=== PATIENT | female | born 1955 | race Caucasian/White ===

== ENCOUNTER 2017-05-28 09:27 | Day surgery (SDC) | payer OTHER ==
[2017-05-23 15:04] VITALS: BMI 33.9
[~2017-05-28 09:27] MED LIST: LACTATED RINGERS 1,000 ML IV SCH
[2017-05-28 09:46] VITALS: TEMP 96.7
[2017-05-28] MEDS ORDERED: LIDOCAINE 1% 20 ML VIAL (10MG/ML) FOR IV START INTRADERMA ONE (09:55)
[2017-05-28] MEDS ORDERED: PROPOFOL 10 MG/ML 20 ML VIAL IV ONE (09:59)
[2017-05-28] MEDS ORDERED: LIDOCAINE 1% INJ 10MG/ML (20 ML MDV) ONE (09:59)
--- NOTE | 2017-05-28 10:33 | P.OP ---
Date of Procedure: 05/28/17 Preoperative Diagnosis: Screening colonoscopy Newly diagnosed breast cancer Postoperative Diagnosis: Normal Procedure(s) Performed: Colonoscopy without biopsy Implants: NA Anesthesia: MAC Surgeon: Abby Melara Pathology: none sent Condition: stable Disposition: PACU Indications for Procedure: 62 years old female presents for screening colonoscopy. Informed consent obtained and patient did undergo colonoscopy with possible biopsy. Operative Findings: Diverticulosis Poor colon prep Description of Procedure: The patient was brought to the endoscopy suite and placed in lateral decubitus position. IV sedation was given as per anesthesia team. Patient was on continuous vitals and pulse oximetry monitoring throughout the procedure. A timeout was performed to verify correct patient and correct procedure. Perianal examination did not show any external hemorrhoids. Digital rectal examination was performed. No masses or gross blood. A well-lubricated Olympus colonoscope was passed per rectally and was gradually advanced beyond the sigmoid colon, splenic flexure, transverse colon, hepatic flexure and cecum. The ileocecal valve was visualized as well as the appendiceal orifice . The colonoscope was gradually withdrawn inspecting all the mucosal surfaces. Bowel prep was good. No polyps, masses, AV malformations noted. No diverticulosis The scope was gradually withdrawn and retroflexed in the rectum . Grade 1 internal hemorrhoids seen. Total withdrawal time was greater than 6 minutes . Patient tolerated the procedure well and was taken to post anesthesia care unit in stable condition. Recommend repeat colonoscopy in 10 years .
[2017-05-28 11:14] VITALS: BP 133/68; PULSE 66; RESP 18
== END 2017-05-28 11:36 | disposition home or self-care (01) ==
LOC: ORWHC2ENDO 09:27
PROVIDERS: ATTEND Surgery
DX: Z12.11 Encounter for screening for malignant neoplasm of colon (principal); C50.512 Malignant neoplasm of lower-outer quadrant of left female breast; K64.0 First degree hemorrhoids; Z78.0 Asymptomatic menopausal state; Z80.3 Family history of malignant neoplasm of breast; Z17.0 Estrogen receptor positive status [ER+]; Z79.1 Long term (current) use of non-steroidal anti-inflammatories (NSAID)
CPT/HCPCS: 45378

== ENCOUNTER → 2018-03-30 | Outpatient (CLI) | payer MEDICARE, OTHER ==
--- NOTE | 2018-04-03 16:14 | BMR ---
EXAMINATION TYPE: MR breast BILAT wo/w con DATE OF EXAM: 03/30/2018 COMPARISON: Bilateral breast screening mammogram May 02, 2017 BI-RADS 0. Left breast ultrasound Au 2016 BI-RADS 4. HISTORY: Left breast lateral side hard lump with extreme pain, markers put in 2017 in area of lump, l eft breast ca diagnosed on ultrasound-guided core biopsy May 10, 2017 with excisional surgery here July 05, 2017 with pathology invasive ductal carcinoma, focal ADH, and lobular neoplasia, and out side bilateral diagnostic mammogram February 28, 2018 BI-RADS 2 CONTRAST: Multiplanar, multisequence images of the breasts were acquired utilizing 9 mL intravenous Gadavist ga dolinium contrast. TECHNIQUE: A series of fat and water weighted images in the long and short axis views of both breasts are obtained in conjunction with dynamic contrast MRI with subtraction technique. Three-dimensional and additional postprocessing imaging is created on independent workstation and reviewed during offi cial interpretation of this study. FINDINGS: Scattered fibroglandular tissue is redemonstrated throughout both breasts. There is asymmet marylu diminished size to left breast with moderate skin thickening presumed posttreatment change. There is artifact from surgical clips in the lower inner quadrant at site of lumpectomy. There is diffuse edema and enhancement involving the anterior and lateral half of the left breast. A few benign appearing axillary lymph nodes are identified bilaterally. No suspicious axillary adenop athy is seen. No suspicious intramammary lymph nodes are present. No new pathologic enhancing masses are identified. Chest wall remains intact. No suspicious incidental findings outside the breasts. IMPRESSION: No MRI evidence for invasive malignancy in either breast. Findings lateral half of left b reast would favor posttreatment change and/or active inflammation/infection. Correlate clinically BI-RADS 1 negative study right breast. BI-RADS 2 presumed benign findings -- expected postsurgical and treatment changes left breast. Recommendation: Correlate clinically left breast. Consider diagnostic left breast mammogram follow-up August 30, 2018. Annual bilateral breast mammogram is due February 28, 2019.
== END | disposition home or self-care (01) ==
LOC: RADMRIMAIN 08:52
PROVIDERS: ATTEND Radiology Radiation Oncology
DX: C50.512 Malignant neoplasm of lower-outer quadrant of left female breast (principal)
CPT/HCPCS: 82565; 36415; 0159T; C8908; A9581; 77059

== ENCOUNTER → 2018-04-26 | Outpatient (CLI) | payer MEDICARE, OTHER ==
[2018-04-26 11:39] VITALS: BP 174/69; PULSE 77; BMI 34.4
--- NOTE | 2018-04-26 12:24 | P.GSHP ---
History of Present Illness H&P Date: 04/26/18 The patient is a 63-year-old white female who is status post left breast lumpectomy and sentinel node biopsy in June 2017 for a T1 N0 M0 breast cancer. She subsequently underwent radiation therapy. She was ER/MS positive and is presently on anastrazole. She complains of tenderness of the left breast at the lumpectomy site where it Biozorb was placed. She additionally complains of swelling of her left arm and wears an elastic compression sleeve. Family History: 1. 3 maternal aunts with breast cancer Past surgical history: 1. Tubal ligation 2. Left breast lumpectomy and sentinel node biopsy Past medical history: Negative Hormonal history: Menarche: 12 Pregnancies:4 4, children, first at 15, breast fed: no menopause: 55 BCP: 25 years hormones: none Review of systems: HEENT: Negative Lungs: Negative Heart: Negative GI: Negative : Negative Arthritis: Negative Neurologic: Negative Psychiatric: Negative ALLERGIES: Negative Social history: Smoke: Negative Alcohol: Negative Drugs: Negative - Constitutional Constitutional: Denies chills, Denies fever - EENT Eyes: bilateral as per HPI Ears: deny: decreased hearing, tinnitus Ears, nose, mouth and throat: Denies headache, Denies sore throat - Breasts Breasts: bilateral: as per HPI - Cardiovascular Cardiovascular: Denies chest pain, Denies shortness of breath - Respiratory Respiratory: Denies cough, Denies 7 - Gastrointestinal Gastrointestinal: Reports as per HPI - Genitourinary (Female) Genitourinary: Reports as per HPI - Musculoskeletal Musculoskeletal: Reports as per HPI - Integumentary Comment: Lymphedema left upper extremity Integumentary: Reports pruritus - Neurological Neurological: Reports as per HPI - Psychiatric Psychiatric: Denies anxiety, Denies depression - Endocrine Endocrine: Reports weight change, Denies fatigue - Hematologic/Lymphatic Comment: none - Allergic/Immunologic Allergic/Immunologic: Reports as per HPI Past Medical History Past Medical History: Cancer Additional Past Medical History / Comment(s): RECENT DX OF LT BREAST CANCER, RLS WITH LEG PAIN. History of Any Multi-Drug Resistant Organisms: None Reported Past Surgical History: Tubal Ligation Additional Past Surgical History / Comment(s): COLONOSCOPY Past Anesthesia/Blood Transfusion Reactions: No Reported Reaction Past Psychological History: No Psychological Hx Reported Smoking Status: Never smoker Past Alcohol Use History: None Reported Past Drug Use History: None Reported - Past Family History Mother Family Medical History: No Reported History Additional Family Medical History / Comment(s): 3 AUNTS WITH HX OF BREAST CANCER Medications and Allergies Home Medications Medication Instructions Recorded Confirmed Type Naproxen Sodium [Aleve] 220 mg PO BID PRN 05/23/17 04/26/18 History Docusate [Colace] 100 mg PO BID #30 capsule 06/25/17 04/26/18 Rx Hydrocodone/Acetaminophen [Cornucopia 1 each PO Q6HR PRN #30 tab 06/25/17 04/26/18 Rx 5-325] Allergies Allergy/AdvReac Type Severity Reaction Status Date / Time No Known Allergies Allergy Verified 06/25/17 07:25 Surgical - Exam Vital Signs Pulse BP Pulse Ox 77 174/69 99 04/26/18 11:34 04/26/18 11:34 04/26/18 11:34 - General well developed, well nourished, no distress - Eyes normal ocular movement, no icteric - ENT no hearing loss, no congestion - Neck no masses, trachea midline - Respiratory normal respiratory effort, clear to auscultation - Cardiovascular Rhythm: regular Heart Sounds: normal: S1, S2 - Abdomen Abdomen: soft, non tender, no guarding, no rigid, no rebound - Integumentary Patient with some pigmentation changes of the left breast related to radiation and lumpectomy - Neurologic no disoriented, no combative - Musculoskeletal normal gait, normal posture - Psychiatric oriented to time, oriented to person, oriented to place, speech is normal, memory intact Breast examination: Right breast: Multiple positional exam no dominant masses or nodules of concern Right axilla: No adenopathy of concern Left breast: Postoperative changes related to radiation as well as fullness related to Biozorb some thickening of the skin Left axilla: No adenopathy of concern Left upper extremity: Lymphedema present Results Bilateral breast MRI was performed on 03/30/2018. There was no evidence of malignancy in either breast just postoperative changes noted in the left breast. Assessment and Plan Assessment: Impression/plan: 1. Patient status post left breast lumpectomy sentinel node biopsy approximately one year ago with persistent pain in the area of the left breast 2. Lymphedema left upper extremity 3. Chronic pain left breast Plan: 1. We will get an ultrasound of the left breast where the firmness is located and see if this corresponds to the BioSorb depending on this may recommend removal of the Biozorb as she has chronic pain related to this 2. Physical therapy for lymphedema left upper extremity 3. Follow-up 1 week cc: Ruben Mueller nurse practitioner in [place], Dr. Clifford located in [place], Dr. Martinez Todd
== END ==
LOC: WWCWWP 11:31
PROVIDERS: ATTEND Surgery
DX: Z53.9 Procedure and treatment not carried out, unspecified reason (principal)

== ENCOUNTER → 2018-04-26 | Outpatient (CLI) | payer MEDICARE, OTHER ==
--- NOTE | 2018-04-26 15:51 | USB ---
EXAMINATION TYPE: US breast complete LT DATE OF EXAM: 04/26/2018 COMPARISON: NONE CLINICAL HISTORY: N64.4 BREAST PAIN, R92.8 ABNORMAL MAMMOGRAM. History of left breast cancer and rece nt radiation with left breast skin thickening and pain. FINDINGS: Whole left breast ultrasound was performed from the 1:00 to 12:00 positions including the r etroareolar region and axillary tail. There is a hypoechoic 3.6 x 2.9 x 3.0 cm fluid collection at th e 4:00 location in zone BC compatible with the patient's site of lumpectomy and likely postoperative seroma. This is avascular. There is diffuse skin thickening and edema throughout the entirety of the left breast, likely post ra diation change. At the 8:00 position in zone a there is a solid appearing mass measuring 1.3 x 0.6 x 1.0 cm it is hyp oechoic and avascular although increased through transmission is seen, possibly related to a complica bautista cysts. Ill-defined area at the 9:00 position in zone BC is predominantly hyperechoic and could re late to fat necrosis. Short-term follow-up is advised. At the 10:00 position within the left breast t here is a small 0.8 cm mass possibly containing a fatty hilum on image 69. This may represent an intr amammary lymph node. At the 1:00 position there is an elongated mass measuring 0.7 x 0.6 x 1.5 cm osbaldo p to the skin surface, possible fat necrosis or fluid collection. Short-term follow-up could be perfo rmed. IMPRESSION: BI-RADS 3-probably benign findings. Short-term follow-up left breast ultrasound is recomm ended in 3 months. Diffuse left breast edema is seen, likely postradiation mastitis. Additionally the re are multiple masses some of which may represent complicated cysts, others fat necrosis, and possib le intramammary lymph node. Reevaluation of the short-term basis is recommended.
== END | disposition home or self-care (01) ==
LOC: RADUSWWP 12:29
PROVIDERS: ATTEND Surgery
DX: R92.8 Other abnormal and inconclusive findings on diagnostic imaging of breast (principal); N64.4 Mastodynia

== ENCOUNTER → 2018-05-16 | Outpatient (CLI) | payer MEDICARE, OTHER ==
[2018-05-16 15:31] VITALS: BP 133/83; PULSE 84; RESP 18; TEMP 98; BMI 33.9
--- NOTE | 2018-05-16 15:48 | P.PN ---
Progress Note - Text Progress Note Date: 05/16/18 The patient is a 63-year-old white female who is status post left breast lumpectomy and sentinel node biopsy in June 2017 for T1 N0 M0 breast cancer. She subsequently underwent radiation therapy. She was ER/IN positive and is presently on anastrozole. She has persistent tenderness in the left breast at the lumpectomy site with it being described as a 10 out of 10. She states that she has difficulty sleeping at night secondary to the pain. The pain is not superficial in the skin of the breast but is deep within the breast itself. It does not appear to be related to the chest wall. The patient also developed lymphedema worsen elastic compression stocking this had physical therapy. She wishes to have the left breast removed and secondary to the fact that she her breasts are quite large is also desired the right breast to be removed such that she would be symmetric. Family history: 1. 3 maternal aunts with breast cancer Past surgical history: 1. Tubal ligation 2. Left breast lumpectomy sentinel node biopsy Past medical history: Negative Hormonal history: Menarche: 12 Pregnancies: 4, 4 children, first at 15, did not breast-feed Menopause: 55 control pills: 25 years Hormones: Negative Review of systems: HEENT: Negative Lungs: Negative Heart: Negative GI: Negative : Negative Arthritis: Negative Neurologic: Negative Social history: Smoke: Negative Alcohol: Negative Drugs: Negative Physical exam: Neck: No adenopathy of concern Lungs: Clear Heart: Regular rate and rhythm Abdomen: Soft nontender Breast examination: Right breast: Multiple positional exam no dominant masses or nodules of concern breast is very large a 42 double deep Right axilla: No adenopathy of concern Left breast: Postoperative changes as well as radiation changes, it is very tender near the area of the lumpectomy with erythema of the skin at this site as well Left axilla: Incision clean and dry no adenopathy of concern Ultrasound was performed which revealed probable benign finding short-term follow-up of the left breast in 3 months there was noted to be diffuse left breast edema likely postradiation mastitis additionally multiple masses some of which may represent complicated cyst other's fat necrosis and possible intramammary lymph node Impression/plan: 1. Patient status post left breast lumpectomy and sentinel node biopsy for a stage I breast cancer 2. Left breast pain related to radiation/lumpectomy 3. Patient presently on anastrozole 4. Right breast 42 double D Plan: 1. Will discuss with Dr. Todd the possibility of bilateral mastectomy as the patient just wishes both breasts be removed at this time secondary to the persistent chronic pain. 2. Continue anastrozole 3. I would recommend that the right breast be reduced or removed if the left breast is removed secondary to the large size of the breast and asymmetry that would be present CC: Dr. Darrin Neves in [facility], Dr. Ovi Todd
== END ==
LOC: WWCWWP 15:12
PROVIDERS: ATTEND Surgery
DX: Z53.9 Procedure and treatment not carried out, unspecified reason (principal)

== ENCOUNTER 2018-06-11 08:02 | Day surgery (SDC) | payer MEDICARE, OTHER ==
[2018-06-04 14:35] VITALS: BMI 33.6
[~2018-06-11 08:02] MED LIST changes: +DEXAMETHASONE SOD PHOSPHATE 10 MG/ML 1 ML VIAL IV ONE; +HEPARIN SODIUM,PORCINE 5,000 UNIT/ML 1 ML VIAL SQ ONE; -LACTATED RINGERS 1,000 ML IV SCH; +MIDAZOLAM 2 MG/2 ML VIAL IV PRN; +ONDANSETRON 4 MG/2 ML VIAL IVP ONE; +Pre Op ABX Message 1 EACH MISC MISCELLANE ONE; +fentaNYL (PF) 50 MCG/ML 2 ML AMP IV PRN
[2018-06-11] MEDS ORDERED: LIDOCAINE 1% 20 ML VIAL (10MG/ML) FOR IV START INTRADERMA ONE (09:10)
[2018-06-11] MEDS: LACTATED RINGERS 1,000 ML IV SCH (09:11)
[2018-06-11] MEDS ORDERED: PHENYLEPHRINE-0.9% NACL SYG 1 MG/10 ML SYRINGE ONE (10:12)
[2018-06-11] MEDS ORDERED: PROPOFOL 10 MG/ML 20 ML VIAL IV ONE (10:12)
[2018-06-11] MEDS ORDERED: HYDROmorphone (PF) 1 MG/ML ONE (10:12)
[2018-06-11] MEDS ORDERED: MIDAZOLAM 2 MG/2 ML VIAL ONE (10:12)
[2018-06-11] MEDS ORDERED: LIDOCAINE 1% INJ 10MG/ML (20 ML MDV) ONE (10:12)
[2018-06-11] MEDS ORDERED: fentaNYL (PF) 50 MCG/ML 2 ML AMP ONE (10:12)
[2018-06-11] MEDS ORDERED: SUCCINYLCHOLINE CHLORIDE 100 MG/5 ML SYR IV ONE (10:12)
[2018-06-11] MEDS ORDERED: SODIUM CHLORIDE 0.9% 50 ML with ceFAZolin 2,000 MG IV ONE ×2 (10:12)
[2018-06-11] MEDS ORDERED: LACTATED RINGERS 1,000 ML IV ONE (12:17)
[2018-06-11] MEDS ORDERED: BENZOCAINE/MENTHOL LOZENG 1 EACH LOZENGE MUCOUS MEM PRN (13:21)
[2018-06-11] MEDS ORDERED: HYDROcodone/APAP 5-325MG 1 EACH TAB PO PRN (13:21)
[2018-06-11] MEDS ORDERED: NALOXONE 0.4 MG/ML 1 ML VIAL IV PRN (13:21)
[2018-06-11] MEDS ORDERED: CALCIUM CARBONATE 500 MG CHEWABLE PO PRN (13:21)
[2018-06-11] MEDS ORDERED: ONDANSETRON 4 MG/2 ML VIAL IVP PRN (13:21)
--- NOTE | 2018-06-11 13:21 | P.OP ---
Date of Procedure: 06/11/18 Preoperative Diagnosis: Left breast prior lumpectomy and radiation therapy with mastodynia, ptotic large right breast Postoperative Diagnosis: Same Procedure(s) Performed: Bilateral simple mastectomy Anesthesia: JEREMIE Surgeon: Madeline Campos Estimated Blood Loss (ml): 75 IV fluids (ml): 1,100 Pathology: other (Both breast) Condition: stable Disposition: PACU Indications for Procedure: The patient is a 63-year-old white female who is status post lumpectomy and radiation therapy of the left breast. Postradiation she has had severe left breast pain. After discussion with radiation oncology the patient wishes to have a left breast mastectomy. The pain is present in the breast and not the chest wall. The radiation oncologist concurs that this is a reasonable treatment for the breast pain. The patient has large breast and she wishes a right mastectomy secondary to the large size of the breast and asymmetry that the mastectomy on the left would cause. She has been given the option of seeing a plastic surgeon and reconstruction or discussion of reduction and she just wishes the right breast to be removed. She understands the risks and benefits and wishes to proceed. The patient was taken to the operating room and following induction of anesthesia both breasts were prepped and draped in a sterile fashion. The left side was approached initially. Superior and inferior skin flaps were developed and carried down to the chest wall. Dissection was performed from medial to lateral taking the breast off the pectoralis major muscle. The tissue in the left breast was very dense and thick with thickening of the skin as well. The breast was completely removed and the wound was irrigated. In the wound site any small areas of oozing were cauterized and powder motorized Surgicel was placed. This was then packed and the right breast was approached. The left breast was marked with a suture at the superior aspect of the breast. Instruments and gloves and gown were changed prior to the approach to the right breast. Superior and inferior skin flaps were measured and developed. These were carried down to the chest wall. The breast was then taken from medial to lateral being careful to maintain hemostasis using the electrocautery device. The breast was marked using a suture at the superior aspect. After the breast had been removed the wound was well irrigated. After we were assured that hemostasis was attained a JOHANNY drain was placed. The JOHANNY drain was secured using a 3-0 nylon suture. The subcutaneous tissues were closed with 3- 0 Vicryl followed by closure of the skin with a 4-0 Monocryl. Steri-Strips were applied. Upon completion of this the left breast mastectomy site was again approached. The wound was again irrigated and no evidence of bleeding was identified. A JOHANNY drain was placed and secured with a nylon suture. The deep sutures were closed with 3-0 Vicryl suture followed by 4-0 Monocryl in the skin. Steri-Strips were applied. All instrument and sponge counts were correct at the end of the case. The patient tolerated the procedure in stable condition. Fluffs were placed and a Gregor wrap was placed as a dressing.
[2018-06-11] MEDS: HYDROmorphone 0.5 MG/0.5 ML SYRINGE IVP ONE ×4 (14:11→14:54)
[2018-06-11] MEDS ORDERED: MEPERIDINE 50 MG/ML SYRINGE IVP ONE (15:06)
[2018-06-11] MEDS: DEXTROSE 5%-0.45% NACL 1,000 ML IV SCH ×2 (16:12→20:55)
--- NOTE | 2018-06-11 16:50 | P.CONS ---
History of Present Illness - Reason for Consult Consult date: 06/11/18 Requesting physician: Madeline Campos - Chief Complaint bilateral breast simple mastectomy - History of Present Illness this is a pleasant 63-year-old female patient of Dr. Leland Jacome. She has underlying history of breast cancer status post lumpectomy left side with radiation therapy, she developed severe left breast pain left afterpost radiation treatmentand underwent bilateral simple mastectomy.she also has restless leg syndromeotherwise she is healthy.patient denies any history of [place] CHF COPD or prior history of DVT PE. Patient has mild lymphedema left arm, Abraham drain minimal left breast about half full on right breast Restless leg pain not yet contyrolled Review of Systems Constitutional: Reports as per HPI, Denies anorexia, Denies chills, Denies chronic headaches, Denies chronic pain, Denies daytime sleepiness, Denies fatigue, Denies fever, Denies lethargy, Denies malaise, Denies night sweats, Denies poor appetite, Denies sweats, Denies weakness, Denies weight gain, Denies weight loss Ears, nose, mouth and throat: Reports as per HPI, Denies ant. neck pain, Denies bleeding gums, Denies dental pain, Denies dysphagia, Denies epistaxis, Denies headache, Denies hoarseness, Denies mouth pain, Denies nasal congestion, Denies nasal discharge, Denies neck fullness/pressure, Denies neck lump, Denies nose pain, Denies odynophagia, Denies post-nasal drip, Denies sinus pain, Denies sinus pressure, Denies swelling in mouth, Denies swelling in throat, Denies sore throat, Denies vertigo, Denies voice changes Cardiovascular: Reports as per HPI, Denies chest pain, Denies claudication, Denies decreased exercise tolerance, Denies dyspnea on exertion, Denies edema, Denies high blood pressure, Denies irregular heart beat, Denies leg edema, Denies lightheadedness, Denies orthopnea, Denies palpitations, Denies paroxysmal nocturnal dyspnea, Denies phlebitis, Denies rapid heart beat, Denies shortness of breath, Denies syncope Respiratory: Reports as per HPI, Denies congestion, Denies cough, Denies cough with sputum, Denies dyspnea, Denies excessive sputum, Denies hemoptysis, Denies home oxygen, Denies pain, Denies pain on inspiration, Denies pleurisy, Denies respiratory infections, Denies sleep apnea, Denies snoring, Denies wheezing Gastrointestinal: Reports as per HPI, Denies abdominal pain, Denies belching, Denies bloating, Denies BRBPR, Denies change in bowel habits, Denies coffee ground emesis, Denies constipation, Denies diarrhea, Denies dyspepsia, Denies early satiety, Denies excessive gas, Denies heartburn, Denies hematemesis, Denies hematochezia, Denies indigestion, Denies jaundice, Denies lactose intolerance, Denies loss of appetite, Denies melena, Denies nausea, Denies vomiting Genitourinary: Reports as per HPI Menstruation: Reports as per HPI, Reports postmenopausal Musculoskeletal: Reports as per HPI, Denies arm numbness/tingling, Denies atrophy, Denies fractures, Denies frequent falls, Denies gait dysfunction, Denies hot joints, Denies leg numbness/tingling, Denies limitation of motion, Denies loss of height, Denies low back pain, Denies morning stiffness, Denies muscle cramps, Denies muscle weakness, Denies myalgias, Denies neck pain, Denies neck stiffness, Denies prior amputations, Denies redness of joints, Denies shooting arm pain, Denies shooting leg pain Integumentary: Reports as per HPI, Denies acne, Denies boils, Denies brittle nails, Denies change in hair/nails, Denies color changes, Denies darkening of skin, Denies depigmentation, Denies dryness, Denies foot/leg ulcers, Denies growths, Denies hirsutism, Denies lesions, Denies onychomycosis, Denies pruritus , Denies rash, Denies sores, Denies striae, Denies unusual bruising, Denies wounds Neurological: Reports as per HPI Psychiatric: Reports as per HPI Endocrine: Reports as per HPI Hematologic/Lymphatic: Reports as per HPI Allergic/Immunologic: Reports as per HPI Past Medical History Past Medical History: Cancer Additional Past Medical History / Comment(s): restless leg syndrome, left breast cancer-had 23 radiation tx-last Aug 2017 History of Any Multi-Drug Resistant Organisms: None Reported Past Surgical History: Breast Surgery, Tubal Ligation Additional Past Surgical History / Comment(s): left breast lumpectomy Past Anesthesia/Blood Transfusion Reactions: No Reported Reaction Past Psychological History: No Psychological Hx Reported Smoking Status: Never smoker Past Alcohol Use History: None Reported Past Drug Use History: None Reported - Past Family History Mother Family Medical History: No Reported History Additional Family Medical History / Comment(s): 3 AUNTS WITH HX OF BREAST CANCER Medications and Allergies Home Medications Medication Instructions Recorded Confirmed Type Anastrozole [Arimidex] 1 mg PO DAILY 06/04/18 06/11/18 History Cholecalciferol [Vitamin D3] 2,000 unit PO DAILY 06/04/18 06/11/18 History Docusate [Colace] 100 mg PO DAILY PRN 06/04/18 06/11/18 History Hydrocodone/Acetaminophen [[place] 1 each PO Q8HR PRN 06/04/18 06/11/18 History 5-325] rOPINIRole HCL [Requip] 0.25 mg PO HS 06/04/18 06/11/18 History Allergies Allergy/AdvReac Type Severity Reaction Status Date / Time No Known Allergies Allergy Verified 06/11/18 08:57 Physical Exam Vitals: Vital Signs Temp Pulse Resp BP Pulse Ox 06/11/18 15:15 90 14 135/65 97 06/11/18 15:00 90 18 141/74 96 06/11/18 14:45 91 16 180/79 95 06/11/18 14:30 92 16 179/78 95 06/11/18 14:15 96 16 169/70 96 06/11/18 14:00 86 16 171/72 98 06/11/18 13:43 97 F L 89 16 147/68 98 06/11/18 09:00 98.2 F 87 16 139/69 94 L Intake and Output 06/11/18 06/11/18 06/11/18 06:59 14:59 22:59 Intake Total 1500 Output Total 325 Balance 1175 Intake: IV 1500 Output: Urine 250 Estimated Blood Loss 75 - Constitutional General appearance: cooperative, no acute distress - EENT Eyes: anicteric sclerae, EOMI, PERRLA, dentition normal ENT: hard of hearing, NA/AT, normal oropharynx - Neck Neck: normal ROM - Respiratory Respiratory: bilateral: CTA, negative: diminished, dullness, rales - Cardiovascular Rhythm: regular Heart sounds: normal: S1, S2 Abnormal Heart Sounds: no systolic murmur, no diastolic murmur, no rub, no S3 Gallop, no S4 Gallop, no click, no other - Gastrointestinal General gastrointestinal: normal bowel sounds, soft - Integumentary surgical dressing intact,without any bleeding overlying dressing Integumentary: normal, normal turgor - Musculoskeletal Musculoskeletal: gait normal, strength equal bilaterally - Psychiatric Psychiatric: A&O x's 3, appropriate affect, intact judgment & insight Assessment and Plan Plan: 1. Mastodynia after breast radiation treatmentwith history of left breast cancer requiring bilateral simple mastectomyhim a postop day #0, patient is doing well without any significantpostoperativepain, no nausea no vomiting, patient would be using incentive spirometry is, a piece for pain control, patient can have gabapentin down the line shoed neuropathic pain persist despite simple mastectomy 2. Elevated blood pressure without any history of hypertension, monitorvitals , pain control, she would be given hydralazine 10 26 when necessary for systolic over 160 when necessary 3.. Restless leg syndrome, on ropiniole 0.25 mg at bedtime, check for iron studies. We will monitor this for titration issues 4.Vitamin D deficiency on vitamin D3 2000 units daily 5.DVT prophylaxis with BHANU hose and early ambulation 6. CK D stage I stablePatient can have anti-inflammatories should she require one for postoperative pain control Thank you Dr. Mdayson Gordon for allowing us to participate in the care of you patient. We'll going to follow her with you during this possibly course, recommendations to her treatment would be made based on clinical progress
[2018-06-11] MEDS: HEPARIN SODIUM,PORCINE 5,000 UNIT/ML 1 ML VIAL SQ SCH (17:31)
[2018-06-11] MEDS ORDERED: DOCUSATE 100 MG CAP PO PRN (18:47)
[2018-06-11] MEDS: HYDROmorphone 1 MG/ML 1 ML SYRINGE IVP PRN (20:36)
[2018-06-12] MEDS: HEPARIN SODIUM,PORCINE 5,000 UNIT/ML 1 ML VIAL SQ SCH ×3 (00:12→17:43)
[2018-06-12] MEDS: HYDROmorphone 1 MG/ML 1 ML SYRINGE IVP PRN ×2 (00:39→05:25)
[2018-06-12] MEDS: DEXTROSE 5%-0.45% NACL 1,000 ML IV SCH ×2 (05:26→19:15)
[2018-06-12 06:08] LABS: Anion Gap 11 mmol/L; Blood Urea Nitrogen 15 mg/dL (7-17); Calcium 9.6 mg/dL (8.4-10.2); Carbon Dioxide 24 mmol/L (22-30); Chloride 106 mmol/L (98-107); Glucose 139 mg/dL (74-99); Potassium 4.4 mmol/L (3.5-5.1); Sodium 141 mmol/L (137-145)
[2018-06-12 06:25] LABS: Basophils % (A) 0 %; Eosinophils % (A) 0 %; HCT 39.5 % (34.0-46.0); HGB 13.1 gm/dL (11.4-16.0); Lymphocytes # (A) 1.5 k/uL (1.0-4.8); Lymphocytes % (A) 12 %; MCH 32.1 pg (25.0-35.0); MCHC 33.2 g/dL (31.0-37.0); MCV 96.7 fL (80.0-100.0); Mean Platelet Volume 6.9; Monocytes # (A) 0.7 k/uL (0-1.0); Monocytes % (A) 6 %; Neutrophils # (A) 10.2 k/uL (1.3-7.7); Neutrophils % (A) 81 %; Platelet Count 274 k/uL (150-450); RBC 4.09 m/uL (3.80-5.40); RDW 12.9 % (11.5-15.5); WBC 12.6 k/uL (3.8-10.6)
[2018-06-12] MEDS: LACTATED RINGERS 1,000 ML IV SCH (07:12)
[2018-06-12] MEDS: CHOLECALCIFEROL 1,000 UNIT TAB PO SCH (09:01)
[2018-06-12] MEDS: PANTOPRAZOLE 40 MG/10 ML VIAL IV SCH (09:02)
[2018-06-12] MEDS: ANASTROZOLE 1 MG TAB PO SCH (09:02)
--- NOTE | 2018-06-12 09:48 | P.PN ---
Subjective Progress Note Date: 06/12/18 Principal diagnosis: Status post bilateral mastectomies postop day #1 Patient is postop day #1 bilateral mastectomy. At this time she is not tolerating her diet well and has had some nausea. Additionally she has some persistent chest wall discomfort requiring IV pain medication. Objective - Vital Signs Vital signs: Vital Signs Temp 97.4 F L 06/12/18 07:18 Pulse 83 06/12/18 07:18 Resp 16 06/12/18 07:18 BP 111/57 06/12/18 07:18 Pulse Ox 93 L 06/12/18 07:18 Intake & Output 06/11/18 06/12/18 06/12/18 18:59 06:59 18:59 Intake Total 1500 Output Total 325 588 Balance 1175 -588 Intake: IV 1500 Output: Drainage 238 left 33 right 205 Urine 250 250 Emesis 100 Estimated Blood Loss 75 Other: # Voids 1 - Constitutional General appearance: Present: obese - EENT Eyes: Present: EOMI ENT: Present: hearing grossly normal - Neck Neck: Present: normal ROM - Respiratory Respiratory: bilateral: CTA (Mildly decreased breath sounds at the bases bilaterally) - Cardiovascular Rhythm: regular Heart sounds: normal: S1, S2 - Gastrointestinal General gastrointestinal: Present: normal bowel sounds, soft - Integumentary Integumentary Comment(s): Patient's Gregor wrap was removed and incisions were inspected Incisions clean and dry bilaterally JOHANNY drain right serosanguineous fluid Left JOHANNY serous fluid Integumentary: Present: normal turgor - Psychiatric Psychiatric: Present: A&O x's 3, appropriate affect, intact judgment & insight - Labs CBC & Chem 7: 06/12/18 05:23 06/12/18 05:23 Labs: Abnormal Lab Results - Last 24 Hours (Table) 06/12/18 06/12/18 Range/Units 05:23 05:23 WBC 12.6 H (3.8-10.6) k/uL Neutrophils # 10.2 H (1.3-7.7) k/uL Glucose 139 H (74-99) mg/dL Assessment and Plan Assessment: Impression/plan: 1. Patient is postop day #1 bilateral mastectomy 2. Serosanguineous drainage right JOHANNY, sanguinous drainage left JOHANNY 3. Postoperative nausea Plan: 1. Repeat CBC in a.m. 2. Continue pain management 3. Advance diet as tolerated 4. Continue JOHANNY management
[2018-06-12 11:50] LABS: Iron Saturation 15.71 (12.00-45.00)
--- NOTE | 2018-06-12 13:11 | P.PN ---
Subjective Progress Note Date: 06/12/18 this is a pleasant 63-year-old female patient of Dr. Leland Jacome. She has underlying history of breast cancer status post lumpectomy left side with radiation therapy, she developed severe left breast pain left afterpost radiation treatmentand underwent bilateral simple mastectomy.she also has restless leg syndromeotherwise she is healthy.patient denies any history of [place] CHF COPD or prior history of DVT PE. Patient has mild lymphedema left arm, Abraham drain minimal left breast about half full on right breast Restless leg pain not yet contyrolled 06/12: Patient states that she had some nausea last evening. She was able to eat 2 pieces of pineapple this morning and half a cup of tea but otherwise has no appetite. She states she was a little dizzy with ambulation. Drains remain in place. Dr. De La Vega progress change dressings. Regarding her restless legs syndrome, patient states it was much improved from last evening with increased dose of Requip. Patient to be monitored overnight and possible discharge tomorrow. Objective - Vital Signs Vital signs: Vital Signs Temp 97.4 F L 06/12/18 07:18 Pulse 83 06/12/18 07:18 Resp 16 06/12/18 07:18 BP 111/57 06/12/18 07:18 Pulse Ox 93 L 06/12/18 07:18 Intake & Output 06/11/18 06/12/18 06/12/18 18:59 06:59 18:59 Intake Total 1500 Output Total 325 588 45 Balance 1175 -588 -45 Intake: IV 1500 Output: Drainage 238 45 left 33 15 right 205 30 Urine 250 250 Emesis 100 Estimated Blood Loss 75 Other: # Voids 1 - Exam General appearance: cooperative, no acute distress - EENT Eyes: anicteric sclerae, EOMI, PERRLA, dentition normal ENT: hard of hearing, NA/AT, normal oropharynx - Neck Neck: normal ROM - Respiratory Respiratory: bilateral: CTA, negative: diminished, dullness, rales - Cardiovascular Rhythm: regular Heart sounds: normal: S1, S2 Abnormal Heart Sounds: no systolic murmur, no diastolic murmur, no rub, no S3 Gallop, no S4 Gallop, no click, no other - Gastrointestinal General gastrointestinal: normal bowel sounds, soft - Integumentary surgical dressing intact,without any bleeding overlying dressing Integumentary: normal, normal turgor - Musculoskeletal Musculoskeletal: gait normal, strength equal bilaterally - Psychiatric Psychiatric: A&O x's 3, appropriate affect, intact judgment & insight - Labs CBC & Chem 7: 06/12/18 05:23 06/12/18 05:23 Labs: Abnormal Lab Results - Last 24 Hours (Table) 06/12/18 06/12/18 Range/Units 05:23 05:23 WBC 12.6 H (3.8-10.6) k/uL Neutrophils # 10.2 H (1.3-7.7) k/uL Glucose 139 H (74-99) mg/dL Assessment and Plan Plan: 1. Mastodynia after breast radiation treatment with history of left breast cancer requiring bilateral simple mastectomy, patient is doing well without any significant postoperative pain, nausea, continue incentive spirometry, current pain control pain control. A shunt may benefit from gabapentin down the line should neuropathic pain persist despite simple mastectomy. 2. Elevated blood pressure without any history of hypertension, monitor vitals , pain control. 3. Restless leg syndrome, on ropiniole 0.25 mg at bedtime and dose increased to 0.5 mg with improvement of symptoms. 4. Vitamin D deficiency on vitamin D3 2000 units daily 5. DVT prophylaxis with BHANU hose and early ambulation 6. CKD stage I stable. Patient can have anti-inflammatories should she require one for postoperative pain control Discharge plan: Return home most likely on Impression and plan of care have been directed as dictated by the signing physician. Idania Goncalves nurse practitioner acting as scribe for signing physician.
[2018-06-12] MEDS: HYDROcodone/APAP 5-325MG 1 EACH TAB PO PRN ×2 (14:19→19:47)
[2018-06-13] MEDS: HEPARIN SODIUM,PORCINE 5,000 UNIT/ML 1 ML VIAL SQ SCH ×4 (00:09→23:57)
[2018-06-13] MEDS: HYDROcodone/APAP 5-325MG 1 EACH TAB PO PRN ×3 (02:06→15:08)
[2018-06-13 06:53] LABS: Basophils % (A) 0 %; Eosinophils # (A) 0.2 k/uL (0-0.7); Eosinophils % (A) 2 %; HCT 35.2 % (34.0-46.0); HGB 11.6 gm/dL (11.4-16.0); Lymphocytes # (A) 2.6 k/uL (1.0-4.8); Lymphocytes % (A) 30 %; MCH 32.1 pg (25.0-35.0); MCV 97.3 fL (80.0-100.0); Mean Platelet Volume 6.8; Monocytes # (A) 0.5 k/uL (0-1.0); Monocytes % (A) 6 %; Neutrophils # (A) 5.3 k/uL (1.3-7.7); Neutrophils % (A) 61 %; Platelet Count 240 k/uL (150-450); RBC 3.62 m/uL (3.80-5.40); RDW 13.2 % (11.5-15.5); WBC 8.7 k/uL (3.8-10.6)
[2018-06-13] MEDS: PANTOPRAZOLE 40 MG/10 ML VIAL IV SCH (08:14)
[2018-06-13] MEDS: CHOLECALCIFEROL 1,000 UNIT TAB PO SCH (08:14)
[2018-06-13] MEDS: ANASTROZOLE 1 MG TAB PO SCH (08:53)
--- NOTE | 2018-06-13 08:55 | P.PN ---
Subjective Progress Note Date: 06/13/18 Principal diagnosis: Status post bilateral mastectomies postop day #2 Patient is postop day #2 bilateral mastectomy. At this time she is tolerating her diet well and has had resolution of her nausea. The postoperative discomfort has improved. Her pain is being controlled with oral pain medication. The drainage from the left JOHANNY is serous, and that from the right JOHANNY remains somewhat serosanguineous. Her hemoglobin is 11.6 down from 13.1. Her white count is 8.7. At this time the patient has no complaints. Objective - Vital Signs Vital signs: Vital Signs Temp 98.0 F 06/13/18 08:36 Pulse 80 06/13/18 08:36 Resp 16 06/13/18 08:36 BP 102/64 06/13/18 08:36 Pulse Ox 95 06/13/18 08:36 Intake & Output 06/12/18 06/13/18 06/13/18 18:59 06:59 18:59 Intake Total 100 Output Total 88 100 Balance 12 -100 Intake: Oral 100 Output: Drainage 88 100 left 30 50 right 58 50 Other: # Voids 1 1 - Constitutional General appearance: Present: obese - EENT Eyes: Present: EOMI - Neck Neck: Present: normal ROM - Respiratory Respiratory: bilateral: CTA - Cardiovascular Rhythm: regular Heart sounds: normal: S1, S2 - Integumentary Integumentary Comment(s): Gregor Ning is taken down and the incisions are evaluated Both incisions are clean and dry JOHANNY right serosanguineous the fluid is darker red today and more serous, that on the left is serous - Psychiatric Psychiatric: Present: A&O x's 3, appropriate affect, intact judgment & insight - Labs CBC & Chem 7: 06/13/18 06:34 06/12/18 05:23 Labs: Abnormal Lab Results - Last 24 Hours (Table) 06/12/18 06/13/18 Range/Units 05:23 06:34 RBC 3.62 L (3.80-5.40) m/uL Iron 44 L (50-170) ug/dL Assessment and Plan Assessment: Impression/plan: 1. Patient is postop day #2 bilateral mastectomy 2. Serous drainage left JOHANNY, serosanguinous drainage right JOHANNY 3. Postoperative nausea resolved Plan: 1. Continue to follow JOHANNY output most likely discharge home later today 2. Continue pain management 3. Advance diet as tolerated 4. Continue JOHANNY management
[2018-06-13] MEDS: LACTATED RINGERS 1,000 ML IV SCH (09:29)
[2018-06-13] MEDS: HYDROmorphone 1 MG/ML 1 ML SYRINGE IVP PRN ×2 (12:04→19:07)
--- NOTE | 2018-06-13 13:26 | P.PN ---
Subjective Progress Note Date: 06/13/18 this is a pleasant 63-year-old female patient of Dr. Leland Jacome. She has underlying history of breast cancer status post lumpectomy left side with radiation therapy, she developed severe left breast pain left afterpost radiation treatmentand underwent bilateral simple mastectomy.she also has restless leg syndromeotherwise she is healthy.patient denies any history of [place] CHF COPD or prior history of DVT PE. Patient has mild lymphedema left arm, Abraham drain minimal left breast about half full on right breast Restless leg pain not yet contyrolled 06/12: Patient states that she had some nausea last evening. She was able to eat 2 pieces of pineapple this morning and half a cup of tea but otherwise has no appetite. She states she was a little dizzy with ambulation. Drains remain in place. Dr. De La Vega progress change dressings. Regarding her restless legs syndrome, patient states it was much improved from last evening with increased dose of Requip. Patient to be monitored overnight and possible discharge tomorrow. 06/13: Patient states that she is feeling better today. Drains are left in place with patient have these removed in office. She states her pain is manageable. Patient is a possible discharge later today. Prescription will be sent for new dose of Requip and patient instructed to take iron for 1 month. Objective - Vital Signs Vital signs: Vital Signs Temp 98.0 F 06/13/18 08:36 Pulse 80 06/13/18 08:36 Resp 16 06/13/18 08:36 BP 102/64 06/13/18 08:36 Pulse Ox 95 06/13/18 08:36 Intake & Output 06/12/18 06/13/18 06/13/18 18:59 06:59 18:59 Intake Total 100 Output Total 88 100 20 Balance 12 -100 -20 Intake: Oral 100 Output: Drainage 88 100 20 left 30 50 right 58 50 20 Other: Voiding Method Toilet # Voids 1 1 1 - Exam General appearance: cooperative, no acute distress - EENT Eyes: anicteric sclerae, EOMI, PERRLA, dentition normal ENT: hard of hearing, NA/AT, normal oropharynx - Neck Neck: normal ROM - Respiratory Respiratory: bilateral: CTA, negative: diminished, dullness, rales - Cardiovascular Rhythm: regular Heart sounds: normal: S1, S2 Abnormal Heart Sounds: no systolic murmur, no diastolic murmur, no rub, no S3 Gallop, no S4 Gallop, no click, no other - Gastrointestinal General gastrointestinal: normal bowel sounds, soft - Integumentary surgical dressing intact,without any bleeding overlying dressing Integumentary: normal, normal turgor - Musculoskeletal Musculoskeletal: gait normal, strength equal bilaterally - Psychiatric Psychiatric: A&O x's 3, appropriate affect, intact judgment & insight - Labs CBC & Chem 7: 06/13/18 06:34 06/12/18 05:23 Labs: Abnormal Lab Results - Last 24 Hours (Table) 06/12/18 06/13/18 Range/Units 05:23 06:34 RBC 3.62 L (3.80-5.40) m/uL Iron 44 L (50-170) ug/dL Assessment and Plan Plan: 1. Mastodynia after breast radiation treatment with history of left breast cancer requiring bilateral simple mastectomy, patient is doing well without any significant postoperative pain, nausea, continue incentive spirometry, current pain control pain control. Patient may benefit from gabapentin down the line should neuropathic pain persist despite simple mastectomy. 2. Elevated blood pressure without any history of hypertension, monitor vitals , pain control. 3. Restless leg syndrome, on ropiniole 0.25 mg at bedtime and dose increased to 0.5 mg with improvement of symptoms. 4. Vitamin D deficiency on vitamin D3 2000 units daily 5. DVT prophylaxis with BHANU hose and early ambulation 6. CKD stage I stable. Patient can have anti-inflammatories should she require one for postoperative pain control Discharge plan: Return home Impression and plan of care have been directed as dictated by the signing physician. Idania Goncalves nurse practitioner acting as scribe for signing physician.
[2018-06-13 22:03] VITALS: RESP 16
[2018-06-14] MEDS: HYDROcodone/APAP 5-325MG 1 EACH TAB PO PRN ×2 (02:25→11:41)
[2018-06-14] MEDS: DEXTROSE 5%-0.45% NACL 1,000 ML IV SCH ×2 (02:30→11:06)
[2018-06-14] MEDS: LACTATED RINGERS 1,000 ML IV SCH (03:56)
[2018-06-14] MEDS ORDERED: PANTOPRAZOLE 40 MG TABLET PO SCH (07:30)
[2018-06-14 08:31] VITALS: BP 107/65; PULSE 80; TEMP 98
[2018-06-14] MEDS: ANASTROZOLE 1 MG TAB PO SCH (08:51)
[2018-06-14] MEDS: HEPARIN SODIUM,PORCINE 5,000 UNIT/ML 1 ML VIAL SQ SCH (08:51)
[2018-06-14] MEDS: CHOLECALCIFEROL 1,000 UNIT TAB PO SCH (08:51)
--- NOTE | 2018-06-14 10:11 | P.PN ---
Subjective Progress Note Date: 06/14/18 Principal diagnosis: Status post bilateral mastectomies postop day #3 Patient is postop day #3 bilateral mastectomy. At this time she is tolerating her diet well and has had resolution of her nausea. The postoperative discomfort has improved. Her pain is being controlled with oral pain medication. The drainage from the left JHOANNY is serous, and that from the right JOHANNY remains somewhat serosanguineous but is becoming more serous. CBC is pending. At this time the patient has no complaints. Objective - Vital Signs Vital signs: Vital Signs Temp 98 F 06/14/18 08:05 Pulse 80 06/14/18 08:05 Resp 16 06/14/18 08:05 BP 107/65 06/14/18 08:05 Pulse Ox 95 06/14/18 08:05 Intake & Output 06/13/18 06/14/18 06/14/18 18:59 06:59 18:59 Intake Total 480 Output Total 70 88 Balance 410 -88 Intake: Oral 480 Output: Drainage 70 88 left 30 38 right 40 50 Other: Voiding Method Toilet Toilet # Voids 1 1 - Constitutional General appearance: Present: obese - EENT Eyes: Present: EOMI - Neck Neck: Present: normal ROM - Respiratory Respiratory: bilateral: CTA - Cardiovascular Rhythm: regular Heart sounds: normal: S1, S2 - Integumentary Integumentary Comment(s): Dressings clean and dry Left incision clean and dry Right chest wall incision mild ecchymosis no evidence of infection - Psychiatric Psychiatric: Present: A&O x's 3, appropriate affect, intact judgment & insight - Labs CBC & Chem 7: 06/13/18 06:34 06/12/18 05:23 Assessment and Plan Assessment: Impression/plan: 1. Patient is postop day #3 bilateral mastectomy 2. Serous drainage left JOHANNY, serosanguinous drainage right JOHANNY becomming more serous 3. Postoperative nausea resolved Plan: 1. Continue to follow JOHANNY output most likely discharge home later today/ awiat CBC 2. Continue pain management 3. Continue JOHANNY management
[2018-06-14 10:27] LABS: Basophils % (A) 0 %; Eosinophils # (A) 0.3 k/uL (0-0.7); Eosinophils % (A) 3 %; HGB 12.4 gm/dL (11.4-16.0); Lymphocytes # (A) 2.7 k/uL (1.0-4.8); Lymphocytes % (A) 33 %; MCHC 31.8 g/dL (31.0-37.0); MCV 100.5 fL (80.0-100.0); Mean Platelet Volume 6.6; Monocytes # (A) 0.6 k/uL (0-1.0); Monocytes % (A) 7 %; Neutrophils # (A) 4.5 k/uL (1.3-7.7); Neutrophils % (A) 55 %; Platelet Count 234 k/uL (150-450); RBC 3.88 m/uL (3.80-5.40); WBC 8.3 k/uL (3.8-10.6)
--- NOTE | 2018-06-14 11:34 | P.DS ---
Providers Attending physician: Madeline Campos Consults: 06/11/18 13:25 Consult Physician Routine Consulting Provider: Abigail Will Consult Reason/Comments: medical managment Do you want consulting provider notified?: Yes Primary care physician: [facility] Course: The patient is a 63-year-old white female who is status post bilateral mastectomy postop day #3. The patient had previously undergone a left breast lumpectomy and had chronic pain at the area. Secondary to asymmetry which would result from a left mastectomy only she opted for bilateral mastectomy. Postoperative she had some initial nausea which has resolved. The patient is stable at this time is going to be discharged home. Plan - Discharge Summary Discharge Rx Participant: No New Discharge Prescriptions: New rOPINIRole HCL 0.5 mg PO HS #30 tablet Ferrous Sulfate [Feosol] 325 mg PO DAILY #30 tab Continue Cholecalciferol [Vitamin D3] 2,000 unit PO DAILY Anastrozole [Arimidex] 1 mg PO DAILY Hydrocodone/Acetaminophen [[place] 5-325] 1 each PO Q8HR PRN PRN Reason: Pain Docusate [Colace] 100 mg PO DAILY PRN PRN Reason: Constipation Discontinued rOPINIRole HCL [Requip] 0.25 mg PO HS Discharge Medication List Anastrozole [Arimidex] 1 mg PO DAILY 06/04/18 [History] Cholecalciferol [Vitamin D3] 2,000 unit PO DAILY 06/04/18 [History] Docusate [Colace] 100 mg PO DAILY PRN 06/04/18 [History] Hydrocodone/Acetaminophen [[place] 5-325] 1 each PO Q8HR PRN 06/04/18 [History] Ferrous Sulfate [Feosol] 325 mg PO DAILY #30 tab 06/13/18 [Rx] rOPINIRole HCL 0.5 mg PO HS #30 tablet 06/13/18 [Rx] Follow up Appointment(s)/Referral(s): Leland Jacome MD [Primary Care Provider] - 1 Week Madeline Campos MD [STAFF PHYSICIAN] - 06/21/18 12:40 pm Patient Instructions/Handouts: Patrice-Joseph Drain Care (GEN), Mastectomy (DC) Activity/Diet/Wound Care/Special Instructions: [place] 5/325. Take one or two tablets every 4 to 6 hours as needed for pain. Empty your Patrice Joseph drains at least 3 times a day and record the amount on the sheet provided and bring to your follow up appointment. Good handwashing. Diet as tolerated, drink plenty of fluids. No lifting, no driving. Discharge Disposition: HOME SELF-CARE
--- NOTE | 2018-06-14 12:40 | P.PN ---
Subjective Progress Note Date: 06/14/18 this is a pleasant 63-year-old female patient of Dr. Leland Jacome. She has underlying history of breast cancer status post lumpectomy left side with radiation therapy, she developed severe left breast pain left afterpost radiation treatmentand underwent bilateral simple mastectomy.she also has restless leg syndromeotherwise she is healthy.patient denies any history of MD CHF COPD or prior history of DVT PE. Patient has mild lymphedema left arm, Abraham drain minimal left breast about half full on right breast Restless leg pain not yet contyrolled 06/12: Patient states that she had some nausea last evening. She was able to eat 2 pieces of pineapple this morning and half a cup of tea but otherwise has no appetite. She states she was a little dizzy with ambulation. Drains remain in place. Dr. De La Vega progress change dressings. Regarding her restless legs syndrome, patient states it was much improved from last evening with increased dose of Requip. Patient to be monitored overnight and possible discharge tomorrow. 06/13: Patient states that she is feeling better today. Drains are left in place with patient have these removed in office. She states her pain is manageable. Patient is a possible discharge later today. Prescription will be sent for new dose of Requip and patient instructed to take iron for 1 month. 06/14: Patient states that she is feeling much better from yesterday. Her white count is normal at 8.3, hemoglobin stable at 12.4. Pulse ox running between 95 and 96% on room air. Patient is scheduled for discharge home today in stable condition. Objective - Vital Signs Vital signs: Vital Signs Temp 98 F 06/14/18 08:05 Pulse 80 06/14/18 08:05 Resp 16 06/14/18 08:05 BP 107/65 06/14/18 08:05 Pulse Ox 95 06/14/18 08:05 Intake & Output 06/13/18 06/14/18 06/14/18 18:59 06:59 18:59 Intake Total 480 Output Total 70 88 Balance 410 -88 Intake: Oral 480 Output: Drainage 70 88 left 30 38 right 40 50 Other: Voiding Method Toilet Toilet Toilet # Voids 1 1 1 - Exam General appearance: cooperative, no acute distress - EENT Eyes: anicteric sclerae, EOMI, PERRLA, dentition normal ENT: hard of hearing, NA/AT, normal oropharynx - Neck Neck: normal ROM - Respiratory Respiratory: bilateral: CTA, negative: diminished, dullness, rales - Cardiovascular Rhythm: regular Heart sounds: normal: S1, S2 Abnormal Heart Sounds: no systolic murmur, no diastolic murmur, no rub, no S3 Gallop, no S4 Gallop, no click, no other - Gastrointestinal General gastrointestinal: normal bowel sounds, soft - Integumentary surgical dressing intact,without any bleeding overlying dressing Integumentary: normal, normal turgor - Musculoskeletal Musculoskeletal: gait normal, strength equal bilaterally - Psychiatric Psychiatric: A&O x's 3, appropriate affect, intact judgment & insight - Labs CBC & Chem 7: 06/14/18 09:43 06/12/18 05:23 Labs: Abnormal Lab Results - Last 24 Hours (Table) 06/14/18 Range/Units 09:43 MCV 100.5 H (80.0-100.0) fL Assessment and Plan Plan: 1. Mastodynia after breast radiation treatment with history of left breast cancer requiring bilateral simple mastectomy, patient is doing well without any significant postoperative pain, nausea, continue incentive spirometry, current pain control pain control. Patient may benefit from gabapentin down the line should neuropathic pain persist despite simple mastectomy. 2. Elevated blood pressure without any history of hypertension, monitor vitals , pain control. 3. Restless leg syndrome, on ropiniole 0.25 mg at bedtime and dose increased to 0.5 mg with improvement of symptoms. 4. Vitamin D deficiency on vitamin D3 2000 units daily 5. DVT prophylaxis with BHANU hose and early ambulation 6. CKD stage I stable. Patient can have anti-inflammatories should she require one for postoperative pain control Discharge plan: Return home Impression and plan of care have been directed as dictated by the signing physician. Idania Goncalves nurse practitioner acting as scribe for signing physician.
== END 2018-06-14 12:10 | disposition home or self-care (01) ==
LOC: OR 08:02 → 6PED 13:44 → OR 06-14 12:10
PROVIDERS: ATTEND Surgery
DX: N60.12 Diffuse cystic mastopathy of left breast (principal); N60.11 Diffuse cystic mastopathy of right breast; N64.1 Fat necrosis of breast; N60.41 Mammary duct ectasia of right breast; R92.1 Mammographic calcification found on diagnostic imaging of breast; N64.81 Ptosis of breast; G89.29 Other chronic pain; R11.0 Nausea; R03.0 Elevated blood-pressure reading, without diagnosis of hypertension; G25.81 Restless legs syndrome; E55.9 Vitamin D deficiency, unspecified; N18.1 Chronic kidney disease, stage 1; Z85.3 Personal history of malignant neoplasm of breast; Z92.3 Personal history of irradiation; Z80.3 Family history of malignant neoplasm of breast; Z79.891 Long term (current) use of opiate analgesic; Z79.899 Other long term (current) drug therapy; Z78.0 Asymptomatic menopausal state; Z98.51 Tubal ligation status
CPT/HCPCS: 80048; 83540; 83550; 85025 ×2; 88307; 19303; J1644 ×3; J1100; J2175; J2405; S0170 ×2; J1170 ×3; J0690; C9113

== ENCOUNTER → 2018-06-21 | Outpatient (CLI) | payer MEDICARE, OTHER ==
--- NOTE | 2018-06-21 13:08 | P.PN ---
Progress Note - Text Progress Note Date: 06/21/18 [place] [id number]. At this time patient comes in without complaints. Her JOHANNY output is serous bilaterally that is greater on each side then 20 mL a day for the past 2 days. the pain for which we did the surgery has improved. Pathology did not reveal any recurrent cancer and no cancer in the right side. Physical exam: The patient's lauren wrap was removed incisions are clean and dry. No evidence of hematoma. No evidence of infection. JOHANNY drains bilateral serous drainage Lungs: Clear Heart: Regular rate and rhythm Impression: 1. patient doing well status post bilateral mastectomy Plan: 1. follow up next week 2. continue drain care cc: Nicolette
[2018-06-21 13:12] VITALS: BP 135/84; PULSE 85; RESP 16; TEMP 97.6; BMI 32.3
== END | disposition home or self-care (01) ==
LOC: WWCWWP 12:40
PROVIDERS: ATTEND Surgery
DX: Z53.9 Procedure and treatment not carried out, unspecified reason (principal)

== ENCOUNTER → 2018-06-24 | Outpatient (CLI) | payer MEDICARE, OTHER ==
[2018-06-24 16:32] VITALS: BP 129/66; PULSE 77; RESP 16; TEMP 98; BMI 32.1
--- NOTE | 2018-06-24 16:53 | P.PN ---
Progress Note - Text Progress Note Date: 06/24/18 Patient is a 63-year-old white female who is status post bilateral mastectomy. Patient at this time is doing well. She has bilateral JOHANNY drains in with minimal output and output is serous. The patient underwent the bilateral mastectomy secondary to severe pain in the left breast following lumpectomy and radiation therapy. Pathology revealed fat necrosis no residual cancer. The patient states she is glad that she had the breast removed and that the pain that she had in the breast is now much improved. Physical examination: Incision bilateral clean and dry no evidence of hematoma or seroma Impression: 1. Left breast lumpectomy/radiation therapy with chronic pain 2. Status post bilateral mastectomy as patient desired this secondary to the asymmetry she would have with a left breast mastectomy Plan: 1. Bilateral drains removed 2. Follow-up medical oncology 3. Follow-up radiation oncology 4. Follow up here in 3 months time 5. Patient does not desire any reconstruction at this time CC: DR. Ruben Mueller
== END ==
LOC: WWCWWP 15:54
PROVIDERS: ATTEND Surgery
DX: Z53.9 Procedure and treatment not carried out, unspecified reason (principal)

== ENCOUNTER → 2018-09-27 | Outpatient (CLI) | payer MEDICARE ==
[2018-09-27 10:56] VITALS: BP 144/72; PULSE 81; RESP 16; TEMP 97.6; BMI 32.4
--- NOTE | 2018-09-27 11:28 | P.PN ---
Subjective Progress Note Date: 09/27/18 Principal diagnosis: Cora is a 63-year-old white female who is status post bilateral mastectomy. She initially had a lumpectomy and radiation therapy in the left breast. This was done in June 2017. Following the lumpectomy and radiation therapy she developed severe pain in the left breast. Despite multiple attempts at correcting this the pain including intervention with physical therapy the pain was persistent and she opted for a bilateral mastectomy. The bilateral mastectomy was performed in May 2018. The patient at this time is doing well and states that her pain is much improved. The patient is on an aromatase inhibitor with some complaints of hot flashes. She did not receive any chemotherapy. She does continue to have some soreness in the left chest wall when she bends over. The discomfort however is much improved to what it was prior to the surgery. Medical history: 1. Left breast invasive ductal carcinoma no evidence of recurrent disease 2. Restless leg syndrome Past surgical history: 1. Bilateral mastectomy 2. Tubal ligation 1981 Review of systems: Constitutional: No fevers chills or weight loss, she does have hot flashes Eyes: No blurred vision Ears: No earaches or sore throats Cardiovascular: No chest pain Respiratory: No cough, shortness of breath GI: No nausea vomiting diarrhea or constipation : Patient is postmenopausal at 55, no urinary tract problems Musculoskeletal: Arthritis in fingers Psychiatric: Depression Endocrine: No heat or cold intolerance Hematologic: Negative Objective - Vital Signs Vital signs: Vital Signs Temp 97.6 F 09/27/18 10:51 Pulse 81 09/27/18 10:51 Resp 16 09/27/18 10:51 BP 144/72 09/27/18 10:51 Pulse Ox 98 09/27/18 10:51 Intake & Output 09/26/18 09/27/18 09/27/18 18:59 06:59 18:59 Weight 88.451 kg - Exam BMI 32.4 - Constitutional General appearance: Present: cooperative, obese - EENT Eyes: Present: EOMI ENT: Present: hearing grossly normal - Neck Neck: Present: normal ROM - Respiratory Respiratory: bilateral: CTA - Cardiovascular Rhythm: regular Heart sounds: normal: S1, S2 - Gastrointestinal General gastrointestinal: Present: soft - Integumentary Integumentary: Present: normal turgor - Musculoskeletal Musculoskeletal: Present: gait normal - Psychiatric Psychiatric: Present: A&O x's 3, intact judgment & insight - Additional findings Additional findings: Examination of chest wall Right chest wall: Incision clean and dry no evidence of any disease Right axilla: No adenopathy of concern Left chest wall: Incision clean and dry, firmness at the area of the incision related to prior radiation changes some tenderness with palpation but no evidence of recurrent disease Left axilla: No adenopathy of concern Assessment and Plan Assessment: Impression: 1. Patient status post bilateral mastectomy 2. Left breast cancer no evidence of recurrent disease on an aromatase inhibitor 3. Radiation changes to left chest wall no evidence of recurrent disease 4. Restless leg syndrome Plan: 1. Continue aromatase inhibitor 2. Continue close surveillance 3. Continue personal physical therapy CC: SANDI Neves, DR. Clifford, ([place])
== END ==
LOC: WWCWWP 10:06
PROVIDERS: ATTEND Surgery
DX: Z53.9 Procedure and treatment not carried out, unspecified reason (principal)

== ENCOUNTER → 2019-05-23 | Outpatient (CLI) | payer MEDICARE ==
[2019-05-23 11:01] VITALS: BP 125/68; PULSE 75; RESP 18; TEMP 98.4; BMI 34.1
--- NOTE | 2019-05-23 11:18 | P.PN ---
Subjective Progress Note Date: 05/23/19 Cora is a 63-year-old white female who is status post bilateral mastectomy. She initially had a lumpectomy and radiation therapy in the left breast. This was done in June 2017. Following the lumpectomy and radiation therapy she developed severe pain in the left breast. Despite multiple attempts at correcting this pain including intervention with physical therapy the pain was persistent and she opted for a bilateral mastectomy. The bilateral mastectomy was performed in May 2018. The patient continues to complain of a pulling sensation in the left lateral chest wall. The patient states she is very happy that the surgery was done as the intensity of pain which she experienced before is much less. She did not have cancer in the right breast this was done prophylactically and because of the large size 44DD. The patient at this time is doing well and states that her pain is much improved. The patient is on an aromatase inhibitor, Anestraole with some complaints of hot flashes. She did not receive any chemotherapy. She does continue to have some soreness in the left chest wall when she bends over. The discomfort however is much improved to what it was prior to the surgery. Family History: 3 maternal aunts with breast cancer Hormonal History: Menarche: 12 , first at 15, did not breast feed menopause: 55 BCP; 25 years hormones: none Medical history: 1. Left breast invasive ductal carcinoma no evidence of recurrent disease 2. Restless leg syndrome Past surgical history: 1. Bilateral mastectomy 2. Tubal ligation 1981 Review of systems: Constitutional: No fevers chills or weight loss, she does have hot flashes Eyes: No blurred vision Ears: No earaches or sore throats Cardiovascular: No chest pain Respiratory: No cough, shortness of breath GI: No nausea vomiting diarrhea or constipation : Patient is postmenopausal at 55, no urinary tract problems Musculoskeletal: Arthritis in fingers Psychiatric: Depression Endocrine: No heat or cold intolerance Hematologic: Negative Objective - Vital Signs Vital signs: Vital Signs Temp 98.4 F 05/23/19 10:58 Pulse 75 05/23/19 10:58 Resp 18 05/23/19 10:58 BP 125/68 05/23/19 10:58 Pulse Ox 94 L 05/23/19 10:58 Intake & Output 05/22/19 05/23/19 05/23/19 18:59 06:59 18:59 Weight 92.986 kg - Exam BMI 34.1 - Constitutional General appearance: Present: obese - EENT Eyes: Present: EOMI ENT: Present: hearing grossly normal - Neck Neck: Present: normal ROM - Respiratory Respiratory: bilateral: CTA - Cardiovascular Rhythm: regular Heart sounds: normal: S1, S2 - Gastrointestinal General gastrointestinal: Present: soft - Integumentary Integumentary: Present: normal turgor - Musculoskeletal Musculoskeletal: Present: gait normal - Psychiatric Psychiatric: Present: A&O x's 3, appropriate affect, intact judgment & insight - Additional findings Additional findings: breast exam: Status post bilateral mastectomy Right chest wall incision clean and dry no evidence of disease Left chest wall incision clean and dry well-healed small seroma under the skin the area of the inferior flap remains thickened believed to be related to radi ation changes tenderness over the ribs Assessment and Plan Assessment: Impression: 1. Patient status post bilateral mastectomy left breast cancer chest wall persistent tenderness most likely related to radiation 2. Left breast lumpectomy and sentinel node biopsy was done June 2017 for T1 N0 M0 breast cancer she subsequently underwent radiation therapy here. Positive and patient is presently on anastrozole 3. No evidence of recurrent cancer 4. right breast mastectomy was done for symmetry as this was a 44 DD breast the patient is very happy with the fact that she had the surgery but continues to have some left chest wall tenderness Plan: 1. Bone scan to rule out disease in the ribs of the left chest wall 2. Rib x-rays 3. Continue anastrozole 4. Continue to follow with medical oncology 5. Follow up here after results of x-rays obtained CC: Dr. Jose Miguel Mueller
== END | disposition home or self-care (01) ==
LOC: WWCWWP 10:16
PROVIDERS: ATTEND Surgery
DX: Z53.9 Procedure and treatment not carried out, unspecified reason (principal)

== ENCOUNTER → 2019-06-13 | Outpatient (CLI) | payer MEDICARE ==
--- NOTE | 2019-06-13 11:32 | XR ---
EXAMINATION TYPE: XR chest 2V DATE OF EXAM: 06/13/2019 COMPARISON: NONE TECHNIQUE: PA and lateral views submitted. HISTORY: Left-sided chest pain FINDINGS: The lungs are clear and there is no pneumothorax, pleural effusion, or focal pneumonia. Mild promin ence of the right hilum. Surgical clips in the left axilla. No overt failure. IMPRESSION: 1. Hilar fullness for which CT scan of the chest is recommended.
--- NOTE | 2019-06-13 11:35 | XR ---
EXAMINATION TYPE: XR ribs LT DATE OF EXAM: 06/13/2019 COMPARISON: NONE HISTORY: Pain TECHNIQUE: 4 views submitted FINDINGS: Surgical clips in the axilla noted. Calcified granuloma spleen suspected. No acute displaced rib fracture. IMPRESSION: No acute displaced rib fracture.
--- NOTE | 2019-06-13 15:51 | NM ---
EXAMINATION TYPE: NM bone scan whole body DATE OF EXAM: 06/13/2019 COMPARISON: X-ray 06/13/2019 HISTORY: Pain left rib cage Delayed whole-body scanning was performed following the injection of 22.9 mCi Tc 99m MDP. Images acq uired 3 hours post injection. FINDINGS: Abnormal uptake involving the right sternoclavicular joint likely post arthritic. Abnormal uptake involving the feet likely post arthritic. Abnormal uptake involving the approximate level of L2 and L3 and the right likely degenerative. Corre late with x-ray as clinically warranted. No suspicious abnormal uptake involving the left rib cage. Soft tissue uptake overlying the left ches t nonspecific. Abnormal uptake involving the left mandible most likely the basis of periodontal disease. Abnormal uptake involving the right shoulder most likely post arthritic. IMPRESSION: 1. No suspicious uptake within the left rib cage. There is nonspecific soft tissue uptake overlying t he left chest or breast correlate clinically. This may be postsurgical or related the patient's histo ry of reported left breast mass, correlate clinically.
== END | disposition home or self-care (01) ==
LOC: RADNMMAIN 10:52
PROVIDERS: ATTEND Surgery
DX: C50.512 Malignant neoplasm of lower-outer quadrant of left female breast (principal); K21.9 Gastro-esophageal reflux disease without esophagitis; Z17.0 Estrogen receptor positive status [ER+]; R68.89 Other general symptoms and signs; R07.89 Other chest pain; Z71.3 Dietary counseling and surveillance
CPT/HCPCS: 71100; 71046; 78306; A9503

== ENCOUNTER → 2019-07-18 | Outpatient (CLI) | payer MEDICARE ==
[2019-07-18 13:45] LABS: African American GFR (CKD) >90 (>60 ml/min/1.73 sqM); Blood Urea Nitrogen 24 mg/dL (7-17)
--- NOTE | 2019-07-18 17:22 | CT ---
EXAMINATION TYPE: CT chest w con DATE OF EXAM: 07/18/2019 COMPARISON: None HISTORY: Breast CA CT DLP: 648 mGycm, Automated exposure control for dose reduction was used. CONTRAST: Performed injected with 100 mL of Isovue 300. TECHNIQUE: Axial images were obtained at 5 mm thick sections. Reconstructed images are reviewed on AIT computer in the coronal plane. FINDINGS: Portion of the thyroid visualized is normal. There is a 0.2 cm nodule within the periphery of the right upper lobe. Series 4 image 20. No enlarged mediastinal or hilar adenopathy is evident. The ascending aorta diameter at the level o f the main pulmonary artery is 3.7 cm. The main pulmonary artery diameter at the bifurcation is 2.4 cm. Some mild coronary artery calcification may be present. Limited CT sections are obtained through the upper abdomen. There is some moderate fatty infiltration to the liver. Small focus of enhancement may be present within the lateral right lobe liver measurin g 0.7 cm. Series 3 image 60 is of uncertain etiology. IMPRESSIONS: 1. Punctate nodule right upper lobe. Follow-up chest CT in 6 months can be performed to evaluate for stability. 2. Small area of enhancement suspected within the posterior lateral right mid liver measuring 0.7 cm. Consider ultrasound for additional evaluation
== END | disposition home or self-care (01) ==
LOC: RADCTMAIN 13:05
PROVIDERS: ATTEND Surgery
DX: R91.1 Solitary pulmonary nodule (principal)
CPT/HCPCS: 82565; 84520; 71260; 36415; Q9967

== ENCOUNTER → 2019-09-23 | Outpatient (CLI) | payer MEDICARE ==
--- NOTE | 2019-09-24 10:28 | US ---
EXAMINATION TYPE: US abdomen limited DATE OF EXAM: 09/23/2019 COMPARISON: NONE CLINICAL HISTORY: R68.[address] showed posteriolateral liver area of enhancement measuring 8mm on 07-18-19. EXAM MEASUREMENTS: Liver Length: 15.4 cm Gallbladder Wall: 0.2 cm CBD: 0.3 cm Right Kidney: 10.0 x 3.8 x 4.6 cm Patient of large body habitus, technically difficult and limited study. Pancreas: Obscured by bowel gas Liver: moderately attenuating, unable to visualize area seen on CT due to limited nature of exam Gallbladder: wnl as seen, limited exam Evidence for sonographic Churchill's sign: no CBD: wnl Right Kidney: No hydronephrosis or masses seen IMPRESSION: 1. Ultrasound evaluation is limited due to body habitus 2. Discrete abnormality within moderately fatty infiltrated liver is not identified. Monitoring with CT is recommended.
== END | disposition home or self-care (01) ==
LOC: RADUSWWP 16:36
PROVIDERS: ATTEND Surgery
DX: R68.89 Other general symptoms and signs (principal)
CPT/HCPCS: 76705

== ENCOUNTER 2019-11-03 07:43 | Inpatient (IN) | payer MEDICARE ==
[2019-11-03] MEDS ORDERED: traMADol 50 MG TAB PO PRN (11:25)
[2019-11-03] MEDS: HYDROmorphone 0.5 MG/0.5 ML SYRINGE IVP PRN (12:33)
--- NOTE | 2019-11-03 12:41 | XR ---
EXAMINATION TYPE: XR chest 1V DATE OF EXAM: 11/03/2019 COMPARISON: 06/13/2019 HISTORY: Fever TECHNIQUE: Single frontal view of the chest is obtained. FINDINGS: Postsurgical changes left axilla. There is no pneumothorax, pleural effusion or overt fail ure. Subsegmental changes at the lung bases. Heart size normal. IMPRESSION: Left basilar atelectasis favored over pneumonia correlate clinically
[2019-11-03 12:43] LABS: Basophils # (A) 0.1 k/uL (0-0.2); Basophils % (A) 1 %; Eosinophils # (A) 0.1 k/uL (0-0.7); Eosinophils % (A) 1 %; HCT 40.7 % (34.0-46.0); HGB 13.3 gm/dL (11.4-16.0); Lymphocytes % (A) 17 %; MCH 31.6 pg (25.0-35.0); MCHC 32.8 g/dL (31.0-37.0); MCV 96.5 fL (80.0-100.0); Mean Platelet Volume 7.4; Monocytes # (A) 0.6 k/uL (0-1.0); Monocytes % (A) 5 %; Neutrophils # (A) 9.3 k/uL (1.3-7.7); Neutrophils % (A) 75 %; Platelet Count 254 k/uL (150-450); RBC 4.22 m/uL (3.80-5.40); RDW 12.4 % (11.5-15.5); WBC 12.4 k/uL (3.8-10.6)
[2019-11-03 12:48] LABS: ALT 13 U/L (4-34); AST 19 U/L (14-36); African American GFR (CKD) >90 (>60 ml/min/1.73 sqM); Albumin 3.6 g/dL (3.5-5.0); Alkaline Phosphatase 85 U/L (38-126); Anion Gap 8 mmol/L; Blood Urea Nitrogen 14 mg/dL (7-17); Calcium 9.5 mg/dL (8.4-10.2); Carbon Dioxide 21 mmol/L (22-30); Chloride 108 mmol/L (98-107); Glucose 99 mg/dL (74-99); Non-African American GFR(CKD) >90 (>60 ml/min/1.73 sqM); Potassium 3.9 mmol/L (3.5-5.1); Sodium 137 mmol/L (137-145); Total Bilirubin 1.1 mg/dL (0.2-1.3); Total Protein 6.4 g/dL (6.3-8.2)
--- NOTE | 2019-11-03 13:28 | USB ---
Reason for exam: clinical finding. History: Patient has history of breast cancer at age 62. Mastectomy of both breasts, 2018. Malignant MG pre op needle loc LT of the left breast, June 25, 2017. US Breast Limited LT Left limited breast ultrasound including focal area of concern, retroareolar and axilla demonstrates complex fluid area at skin redness and size 9.3 x 2.3 x 2.8cm. Scanned 9-3 o'clock including presternal area of redness. Horizontally oriented fluid collection spanning the superior half of the breast. Chronic seroma versus abscess, clinically correlate. ASSESSMENT: Benign, BI-RAD 2 RECOMMENDATION: Clinical management of the left breast. Manage patient on a clinical basis with regard to cellulitis and underlying 9.3cm chronic seroma versus abscess.
[2019-11-03] MEDS ORDERED: TEMAZEPAM 15 MG CAP PO PRN (15:03)
[2019-11-03] MEDS ORDERED: ALPRAZolam 0.25 MG TAB PO PRN (15:03)
[2019-11-03] MEDS ORDERED: ACETAMINOPHEN TAB 500 MG TAB PO PRN (15:03)
--- NOTE | 2019-11-03 15:31 | P.CONS ---
History of Present Illness - Reason for Consult Consult date: 11/03/19 Ongoing AI for Hx of breast cancer Requesting physician: Allen Prajapati - Chief Complaint left chest wall pain and tenderness - History of Present Illness Mrs. Lindsey is a very pleasant 64-year-old female patient of Dr. Ortiz history of breast cancer. She had a screening mammography around April 2017 revealed an abnormality in the left breast, confirmed by ultrasound, ultrasound guided biopsy 05/10/17, pathology consistent with invasive ductal carcinoma, ER/VA positive, HER-2 negative by fish. She had a lumpectomy on June 25, 2017 revealing 1.6 cm, grade 2 with 04 nodes involved. She proceeded to radiation that was completed in late August 2017. She was lost to follow- up. Saw after December 2017 questioning if she needed chemotherapy. Oncotype was done, she was in the low risk group with a score 14. Recommendation was AI, she was started on anastrozole 02/01. She had bilateral mastectomy 06/04 , due to abnormal US. This was found to be due to extensive scarring. No malignancy was noted. Patient has no other symptoms of recurrent malignancy, she is up-to-date on her follow-ups. X Patient states tenderness at the lt mastectomy site ever since surgery. Over the weekend this progressed to be painful, increased redness, hot to the touch, patient denied any fevers, chills, drainage or open lesions, nausea, vomiting, difficulty breathing, acute changes in bowel or bladder habits. Patient denies any adenopathy in the axilla. Review of Systems 14 point review of systems is negative except as stated in HPI Past Medical History Past Medical History: Asthma, Cancer Additional Past Medical History / Comment(s): restless leg syndrome, left breast cancer-had 23 radiation tx-last Aug 2017 History of Any Multi-Drug Resistant Organisms: None Reported Past Surgical History: Breast Surgery, Tubal Ligation Additional Past Surgical History / Comment(s): left breast lumpectomy 2017, double mastectomy 2018 Past Anesthesia/Blood Transfusion Reactions: No Reported Reaction Past Psychological History: Depression Smoking Status: Never smoker Past Alcohol Use History: None Reported Past Drug Use History: None Reported - Past Family History Mother Family Medical History: No Reported History Additional Family Medical History / Comment(s): 3 AUNTS WITH HX OF BREAST CANCER Father Family Medical History: Hypertension Medications and Allergies Home Medications Medication Instructions Recorded Confirmed Type Anastrozole [Arimidex] 1 mg PO DAILY 06/04/18 11/03/19 History Cholecalciferol [Vitamin D3 (25 2,000 unit PO QAM 06/04/18 11/03/19 History Mcg = 1000 Iu)] rOPINIRole HCL [Requip] 0.5 mg PO HS #30 tablet 06/13/18 11/03/19 Rx Albuterol Sulfate [Albuterol 2 puff INHALATION RT-BID PRN 11/03/19 11/03/19 History Sulfate Hfa] Montelukast [Singulair] 10 mg PO DAILY 11/03/19 11/03/19 History Sertraline [Zoloft] 50 mg PO DAILY 11/03/19 11/03/19 History traMADol HCl [Ultram] 50 mg PO DAILY PRN 11/03/19 11/03/19 History Allergies Allergy/AdvReac Type Severity Reaction Status Date / Time No Known Allergies Allergy Verified 11/03/19 13:04 Physical Exam Vitals: Vital Signs Temp Pulse Resp BP Pulse Ox 11/03/19 12:33 98.1 F 94 20 114/69 95 11/03/19 10:00 99.2 F 80 18 109/69 93 L Intake and Output 11/03/19 11/03/19 11/03/19 06:59 14:59 22:59 Other: # Voids 1 1 Weight 89 kg - Constitutional General appearance: cooperative, no acute distress, obese - EENT Eyes: anicteric sclerae, EOMI ENT: hearing grossly normal, normal oropharynx - Neck Neck: no lymphadenopathy - Respiratory Respiratory: bilateral: CTA - Cardiovascular Rhythm: regular Heart sounds: normal: S1, S2 Abnormal Heart Sounds: no systolic murmur, no diastolic murmur, no rub, no S3 Gallop, no S4 Gallop, no click, no other leg Peripheral Edema: bilateral: None - Gastrointestinal General gastrointestinal: no absent bowel sounds, no decreased bowel sounds, no distended, no hepatomegaly, no hyperactive bowel sounds, normal bowel sounds, no organomegaly, no rigid, no scaphoid, soft, no splenomegaly, no tenderness, no umbilical hernia, no ventral hernia - Integumentary Bilateral chest wall mastectomy scars. Left chest wall is marked for the area involved with redness, it is approximately 6-7 inches laterally across the breast probably 4 inches at its widest, no open areas or drainage is noted, unable to palpate the area due to significant pain, unable to appreciate any axillary adenopathy - Neurologic Neurologic: CNII-XII intact - Musculoskeletal Musculoskeletal: strength equal bilaterally - Psychiatric Psychiatric: A&O x's 3, appropriate affect, intact judgment & insight Results CBC & Chem 7: 11/03/19 12:05 11/03/19 12:05 Labs: Abnormal Lab Results - Last 24 Hours (Table) 11/03/19 11/03/19 Range/Units 12:05 12:05 WBC 12.4 H (3.8-10.6) k/uL Neutrophils # 9.3 H (1.3-7.7) k/uL Chloride 108 H (98-107) mmol/L Carbon Dioxide 21 L (22-30) mmol/L Comments: ultrasound report reviewed Chest x-ray: report reviewed Assessment and Plan (1) Cellulitis of left breast Narrative/Plan: Surgeon and Infectious Disease consulted. There does appear to be fluid collections on ultrasound. We will await evaluation and recs. Current Visit: Yes Status: Acute Priority: High Code(s): N61.0 - MASTITIS WITHOUT ABSCESS SNOMED Code(s): 93804343 (2) Hormone receptor positive breast cancer Narrative/Plan: Left breast cancer, stage IA. Status post surgery, radiation, now on AI. She is current on her follow-ups, no evidence of metastatic disease. Continue AI Less likely pt current condition is r/t malignancy. Pending treatment of cellulitis then cont f/u Current Visit: No Status: Chronic Priority: Medium Code(s): C50.919 - MALIGNANT NEOPLASM OF UNSP SITE OF UNSPECIFIED FEMALE BREAST SNOMED Code(s): 182750723
--- NOTE | 2019-11-03 17:41 | HP ---
HISTORY AND PHYSICAL DATE OF SERVICE: 11/03/2019 CHIEF COMPLAINT: Pain and swelling and erythema of the left chest. HISTORY OF PRESENT ILLNESS: This 64-year-old woman with a past medical history of multiple medical problems including history of asthma, history of cancer, also left breast cancer. The patient had radiation 2017. Patient had tubal ligation. Patient had depression. Patient also had bilateral mastectomy subsequently by Dr. Madyson Campos. Currently the patient is complaining of pain, swelling, erythema and severe tenderness in the left side of the chest at the site of the surgical area without any evidence of any obvious drainage. Patient went to [facility]. Patient was transferred to [facility], direct admission for further evaluation and treatment. The basic labs are indicating increased WBC. Otherwise, the patient also had a breast ultrasound which showed the possibility of a seroma or abscess. Chest x-ray which was reviewed personally by me showed left basilar atelectasis. There is no history of fever, rigors. No history of headache, loss of consciousness, seizures at this time. PAST MEDICAL HISTORY: History of asthma, history of breast cancer. SURGERIES: As mentioned, surgery, tubectomy, left breast lumpectomy, history of depression. HOME MEDICATIONS: 1. Ultram 50 mg daily p.r.n. 2. Zoloft 250 mg daily. 3. Singulair 10 mg p.o. 4. Vitamin D3 2000 q.a.m. 5. Arimidex 1 mg p.o. daily. 6. Albuterol 2 puffs b.i.d. p.r.n. 7. Requip 0.5 mg q.h.s. ALLERGIES: None. FAMILY HISTORY: History of breast cancer in three aunts. SOCIAL HISTORY: No history of smoking. No history of alcohol. REVIEW OF SYSTEMS: ENT No history of diminished hearing or vision. CARDIOVASCULAR No angina or palpitations. RESPIRATORY As mentioned earlier. GI As mentioned earlier. No dysuria. NERVOUS No numbness or weakness. ALLERGY/IMMUNOLOGY No asthma or hayfever. MUSCULOSKELETAL As mentioned earlier. HEMATOLOGY/ONCOLOGY As mentioned earlier. ENDOCRINE As mentioned earlier. SKIN Negative. CONSTITUTIONAL As mentioned earlier. PSYCHIATRY As mentioned earlier. PHYSICAL EXAMINATION: Alert and oriented x3. Pulse 94, blood pressure 114/69, respiration 20, temperature 98, pulse ox 94% on room air. HEENT: Conjunctivae normal. Oral mucosa moist. NECK: No jugular venous distention. No lymph node enlargement. CARDIOVASCULAR: S1, S2. RESPIRATORY: Diminished breath sounds at the bases. A few scattered rhonchi, no crackles. ABDOMEN: Soft, nontender. No mass palpable. LEGS: No edema, no swelling. NERVOUS SYSTEM: Higher functions mentioned earlier. Moves all four limbs. No focal deficits. LYMPHATICS: No lymph node in neck, axillae or groin. SKIN: No rash/bleeding except in the chest area. JOINTS: No active deforming arthropathy. Examination of the chest wall: Significant erythema, tenderness and extensive erythema in the lower part of the left chest extending from the midline to the lateral part with some tenderness and erythema and warmth. LABS: WBC 12.2, hemoglobin 13.3, sodium 130, potassium 3.8. Ultrasound is reviewed. ASSESSMENT: 1. Acute cellulitis with possible abscess on the left chest wall with severe pain with possible systemic inflammatory response syndrome. 2. History of bilateral mastectomy and left lumpectomy for breast cancer. 3. Increased WBC. 4. History of restless leg syndrome. 5. History of radiation of the left breast. 6. History of asthma. 7. Family history of breast cancer. 8. History of lumpectomy. 9. History of depression. 10.Obesity with body mass of 32.7. RECOMMENDATIONS AND DISCUSSION: In this 64-year-old woman who presented with multiple complex medical issues, we will monitor the patient closely, continue the current management, continue symptomatic treatment. We will initiate broad-spectrum IV antibiotics. We will also obtain cultures. I would also recommend consultation with Infectious Disease and Surgery. Otherwise, Dr. Madyson Campos is also consulted. Home medication will be continued. Guarded prognosis because of multiple complex medical issues. Further recommendations to follow. MMODL / IJN: [id number] / MTDD
[2019-11-03] MEDS ORDERED: ALBUTEROL NEBULIZED 2.5 MG/3 ML INHALATION PRN (20:00)
[2019-11-03] MEDS: HYDROcodone/APAP 5-325MG 1 EACH TAB PO PRN (20:13)
[2019-11-03] MEDS: SERTRALINE 25 MG TAB PO SCH (21:40)
[2019-11-03] MEDS: HEPARIN SODIUM,PORCINE 5,000 UNIT/ML 1 ML VIAL SQ SCH (21:41)
[2019-11-03] MEDS ORDERED: VANCOMYCIN IV PER PHARMACY 1 EACH MISC MISCELLANE PRN (23:57)
--- NOTE | 2019-11-04 00:08 | P.CONS ---
History of Present Illness - Reason for Consult Consult date: 11/03/19 Left mastectomy secondary cellulitis Requesting physician: Allen Prajapati - Chief Complaint Left chest wall pain swelling and redness times few days - History of Present Illness Patient is a 64-year-old female with a past medical history significant for bilateral mastectomy in 2018 for breast cancer patient did have history of radiation therapy patient was doing okay until a few days ago which started having pain to the left side of her chest, the patient describing the pain to be show with intensity of 7-8 out of 10 and no radiation pain is worse with movement of the chest wall currently with no open wound or any drainage the patient did have some chills with these symptoms the patient was initially evaluated at [facility] with patient did have CT of the chest also have elevated white count she was treated with vancomycin and subsequently has been transferred to [facility] for further management of underlying cellulitis and possible abscess the patient was started on cefazolin infectious disease was consulted for further management of antibiotic therapy Review of Systems Positive point has been mentioned in the HPI rest of the systems are negative Past Medical History Past Medical History: Asthma, Cancer Additional Past Medical History / Comment(s): restless leg syndrome, left breast cancer-had 23 radiation tx-last Aug 2017 History of Any Multi-Drug Resistant Organisms: None Reported Past Surgical History: Breast Surgery, Tubal Ligation Additional Past Surgical History / Comment(s): left breast lumpectomy 2017, double mastectomy 2018 Past Anesthesia/Blood Transfusion Reactions: No Reported Reaction Past Psychological History: Depression Smoking Status: Never smoker Past Alcohol Use History: None Reported Past Drug Use History: None Reported - Past Family History Mother Family Medical History: No Reported History Additional Family Medical History / Comment(s): 3 AUNTS WITH HX OF BREAST CANCER Father Family Medical History: Hypertension Medications and Allergies Home Medications Medication Instructions Recorded Confirmed Type Anastrozole [Arimidex] 1 mg PO DAILY 06/04/18 11/03/19 History Cholecalciferol [Vitamin D3 (25 2,000 unit PO QAM 06/04/18 11/03/19 History Mcg = 1000 Iu)] rOPINIRole HCL [Requip] 0.5 mg PO HS #30 tablet 06/13/18 11/03/19 Rx Albuterol Sulfate [Albuterol 2 puff INHALATION RT-BID PRN 11/03/19 11/03/19 History Sulfate Hfa] Montelukast [Singulair] 10 mg PO DAILY 11/03/19 11/03/19 History Sertraline [Zoloft] 50 mg PO DAILY 11/03/19 11/03/19 History traMADol HCl [Ultram] 50 mg PO DAILY PRN 11/03/19 11/03/19 History Allergies Allergy/AdvReac Type Severity Reaction Status Date / Time No Known Allergies Allergy Verified 11/03/19 13:04 Physical Exam Vitals: Vital Signs Temp Pulse Resp BP Pulse Ox 11/03/19 10:00 99.2 F 80 18 109/69 93 L Intake and Output 11/02/19 11/03/19 11/03/19 22:59 06:59 14:59 Other: Weight 89 kg GENERAL DESCRIPTION: An elderly female lying in bed, no distress. No tachypnea or accessory muscle of respiration use. HEENT: Shows Pallor , no scleral icterus. Oral mucous membrane is dry. No pharyngeal erythema or thrush NECK: Trachea central, no thyromegaly. LUNGS: Unlabored breathing. Clear to auscultation anteriorly. No wheeze or crack le. HEART: S1, S2, regular rate and rhythm. No loud murmur ABDOMEN: Soft, no tenderness , guarding or rigidity, no organomegaly EXTREMITIES: No edema of feet. SKIN: No rash, no masses palpable. Left chest wall/mastectomy site did have a erythema which is warm and tender to touch base and fluctuation NEUROLOGICAL: The patient is awake, alert, oriented x3, mood and affect normal. Results CBC & Chem 7: 11/03/19 12:05 11/03/19 12:05 Assessment and Plan Assessment: 1-patient with left chest wall pain swelling and redness in this patient who did have a history of mastectomy for breast cancer, likely representing chest wall cellulitis underlying abscess collection not entirely excluded likely from gram-positive skin ameya clinically doubt gram-negative infection (1) Abscess or cellulitis of chest wall Current Visit: Yes Status: Acute Code(s): [id number] - SNOMED Code(s): 481982415 Plan: 1-obtain ultrasound of the left chest wall area to make sure no evidence of any abscess/fluid collection which if positive will recommend drainage of the same and send the fluid for culture 2-discontinue cefazolin 3-Vancomycin pharmacy to dose target trough of 15 while watching his kidney function and Vanco trough closely We will follow on clinical condition and cultures to further adjust medication if needed Thank you for this consultation will follow this patient with you Time with Patient: Greater than 30
[2019-11-04] MEDS: VANCOMYCIN 1,500 MG in SODIUM CHLORIDE 0.9% 250 ML IVPB SCH ×2 (01:10→14:37)
[2019-11-04 09:02] LABS: Basophils % (A) 0 %; Eosinophils # (A) 0.2 k/uL (0-0.7); Eosinophils % (A) 2 %; HCT 40.7 % (34.0-46.0); HGB 12.9 gm/dL (11.4-16.0); Lymphocytes # (A) 1.5 k/uL (1.0-4.8); Lymphocytes % (A) 16 %; MCH 30.7 pg (25.0-35.0); MCHC 31.7 g/dL (31.0-37.0); MCV 97.1 fL (80.0-100.0); Mean Platelet Volume 7.3; Monocytes # (A) 0.5 k/uL (0-1.0); Monocytes % (A) 5 %; Neutrophils # (A) 7.2 k/uL (1.3-7.7); Neutrophils % (A) 75 %; Platelet Count 279 k/uL (150-450); RDW 12.3 % (11.5-15.5); WBC 9.6 k/uL (3.8-10.6)
[2019-11-04] MEDS: HEPARIN SODIUM,PORCINE 5,000 UNIT/ML 1 ML VIAL SQ SCH ×2 (09:19→22:31)
[2019-11-04] MEDS: SERTRALINE 50 MG TAB PO SCH (09:19)
[2019-11-04] MEDS: HYDROcodone/APAP 5-325MG 1 EACH TAB PO PRN ×2 (09:19→22:33)
[2019-11-04] MEDS: MONTELUKAST 10 MG TAB PO SCH (09:20)
[2019-11-04] MEDS: ANASTROZOLE 1 MG TAB PO SCH (09:20)
[2019-11-04] MEDS: CHOLECALCIFEROL 1,000 UNIT TAB PO SCH (09:20)
[2019-11-04] MEDS: PANTOPRAZOLE 40 MG TABLET PO SCH (09:20)
[2019-11-04 12:05] LABS: African American GFR (CKD) >90 (>60 ml/min/1.73 sqM); Anion Gap 8 mmol/L; Blood Urea Nitrogen 15 mg/dL (7-17); Calcium 8.9 mg/dL (8.4-10.2); Carbon Dioxide 20 mmol/L (22-30); Chloride 109 mmol/L (98-107); Glucose 98 mg/dL (74-99); Non-African American GFR(CKD) >90 (>60 ml/min/1.73 sqM); Sodium 137 mmol/L (137-145)
[2019-11-04 12:16] LABS: Potassium 4.3 mmol/L (3.5-5.1)
--- NOTE | 2019-11-04 17:25 | P.GSHP ---
History of Present Illness H&P Date: 11/04/19 Chief Complaint: Erythema/ cellulitis left anterior chest wall Cora is a 64-year-old white female seen in consultation for DR. Strauss who is status post bilateral mastectomies. She underwent an initial left breast lumpectomy in 2016 and had radiation therapy following this for an invasive ductal breast cancer. She had persistent pain and opted for a mastectomy in May 2018. The patient at that time had bilateral mastectomies secondary to the asymmetry which unilateral mastectomy would cause. She did not receive chemotherapy but has had hormonal therapy. The patient has done well until recently approximately 4 days ago when she states she awoke with left-sided chest wall tenderness. She states that the area was very tender to palpation and LAD. She did not report any fevers. She presented to the hospital and has been started on IV antibiotics. She had an ultrasound performed which does reveal fluid consistent with seroma versus abscess under the mastectomy flap on the left side. Surgical history: 1. Bilateral mastectomies 2. Tubal ligation Medical history: 1. Depression - Constitutional Constitutional: Denies chills, Denies fever - EENT Eyes: denies blurred vision, denies pain Ears: deny: decreased hearing Ears, nose, mouth and throat: Denies headache, Denies sore throat - Breasts Breasts: bilateral: as per HPI - Cardiovascular Cardiovascular: Denies chest pain, Denies shortness of breath - Respiratory Comment: asthma - Gastrointestinal Gastrointestinal: Denies abdominal pain, Denies diarrhea, Denies nausea, Denies vomiting - Genitourinary (Female) Comment: Recent urinary tract infection - Menstruation Menstruation: Reports postmenopausal - Integumentary Comment: Left chest wall tender to palpation/seroma versus abscess/erythema No evidence of recurrent cancer - Psychiatric Psychiatric: Reports depression - Endocrine Endocrine: Reports as per HPI - Hematologic/Lymphatic Hematologic/Lymphatic: Reports as per HPI - Allergic/Immunologic Allergic/Immunologic: Reports as per HPI Past Medical History Past Medical History: Asthma, Cancer Additional Past Medical History / Comment(s): restless leg syndrome, left breast cancer-had 23 radiation tx-last Aug 2017 History of Any Multi-Drug Resistant Organisms: None Reported Past Surgical History: Breast Surgery, Tubal Ligation Additional Past Surgical History / Comment(s): left breast lumpectomy 2017, double mastectomy 2018 Past Anesthesia/Blood Transfusion Reactions: No Reported Reaction Past Psychological History: Depression Smoking Status: Never smoker Past Alcohol Use History: None Reported Past Drug Use History: None Reported - Past Family History Mother Family Medical History: No Reported History Additional Family Medical History / Comment(s): 3 AUNTS WITH HX OF BREAST CANCER Father Family Medical History: Hypertension Medications and Allergies Home Medications Medication Instructions Recorded Confirmed Type Anastrozole [Arimidex] 1 mg PO DAILY 06/04/18 11/03/19 History Cholecalciferol [Vitamin D3 (25 2,000 unit PO QAM 06/04/18 11/03/19 History Mcg = 1000 Iu)] rOPINIRole HCL [Requip] 0.5 mg PO HS #30 tablet 06/13/18 11/03/19 Rx Albuterol Sulfate [Albuterol 2 puff INHALATION RT-BID PRN 11/03/19 11/03/19 History Sulfate Hfa] Montelukast [Singulair] 10 mg PO DAILY 11/03/19 11/03/19 History Sertraline [Zoloft] 50 mg PO DAILY 11/03/19 11/03/19 History traMADol HCl [Ultram] 50 mg PO DAILY PRN 11/03/19 11/03/19 History Allergies Allergy/AdvReac Type Severity Reaction Status Date / Time No Known Allergies Allergy Verified 11/03/19 13:04 Surgical - Exam Vital Signs Temp Pulse Resp BP Pulse Ox 99.2 F 80 18 109/69 93 L 11/03/19 10:00 11/03/19 10:00 11/03/19 10:00 11/03/19 10:00 11/03/19 10:00 BMI 32.7 - General moderate distress - Eyes normal ocular movement - ENT no hearing loss, no congestion - Neck trachea midline - Respiratory normal respiratory effort, clear to auscultation - Cardiovascular Rhythm: regular Heart Sounds: normal: S1, S2 - Abdomen Abdomen: soft, non tender, no guarding, no rigid, no rebound - Integumentary Right chest wall well-healed scar from mastectomy no evidence of cancer Left chest wall well-healed scar from mastectomy erythema with some swelling no evidence of recurrent cancer - Neurologic normal coordination - Musculoskeletal lying in bed - Psychiatric oriented to time, oriented to person, oriented to place, speech is normal, memory intact Results - Labs 11/04/19 08:19 11/04/19 11:01 Abnormal Lab Results - Last 24 Hours (Table) 11/04/19 Range/Units 11:01 Chloride 109 H (98-107) mmol/L Carbon Dioxide 20 L (22-30) mmol/L Diabetes panel 11/04/19 Range/Units 11:01 Sodium 137 (137-145) mmol/L Potassium 4.3 (3.5-5.1) mmol/L Chloride 109 H (98-107) mmol/L Carbon Dioxide 20 L (22-30) mmol/L BUN 15 (7-17) mg/dL Creatinine 0.57 (0.52-1.04) mg/dL Glucose 98 (74-99) mg/dL Calcium 8.9 (8.4-10.2) mg/dL Calcium panel 11/04/19 Range/Units 11:01 Calcium 8.9 (8.4-10.2) mg/dL Pituitary panel 11/04/19 Range/Units 11:01 Sodium 137 (137-145) mmol/L Potassium 4.3 (3.5-5.1) mmol/L Chloride 109 H (98-107) mmol/L Carbon Dioxide 20 L (22-30) mmol/L BUN 15 (7-17) mg/dL Creatinine 0.57 (0.52-1.04) mg/dL Glucose 98 (74-99) mg/dL Calcium 8.9 (8.4-10.2) mg/dL Adrenal panel 11/04/19 Range/Units 11:01 Sodium 137 (137-145) mmol/L Potassium 4.3 (3.5-5.1) mmol/L Chloride 109 H (98-107) mmol/L Carbon Dioxide 20 L (22-30) mmol/L BUN 15 (7-17) mg/dL Creatinine 0.57 (0.52-1.04) mg/dL Glucose 98 (74-99) mg/dL Calcium 8.9 (8.4-10.2) mg/dL Assessment and Plan Assessment: Impression: 1. Ultrasound left chest wall fluid collection at her mastectomy flap seroma versus abscess 2. No evidence of recurrent cancer 3. Patient on arimidex Plan: 1. Aspiration fluid under seroma flap this can be done at bedside or as per ultrasound guidance 2. Continue antibiotic coverage as per infectious disease 3. We will follow with you consultation 30 minutes > 50% of time in planning and counselling
[2019-11-04] MEDS: HYDROmorphone 0.5 MG/0.5 ML SYRINGE IVP PRN (20:44)
[2019-11-04] MEDS: SERTRALINE 25 MG TAB PO SCH (22:31)
[2019-11-05] MEDS: CEFEPIME 2 GM in SODIUM CHLORIDE 0.9% 100 ML IVPB SCH ×3 (00:06→22:24)
[2019-11-05] MEDS: VANCOMYCIN 1,500 MG in SODIUM CHLORIDE 0.9% 250 ML IVPB SCH ×2 (01:20→12:48)
--- NOTE | 2019-11-05 03:10 | PN ---
PROGRESS NOTE DATE OF SERVICE: 11/04/2019 This 64-year-old woman was admitted with pain and ecchymosis of the left chest with possible cellulitis. She is being closely monitored at this time. Dr. Madyson Campos seen the patient and recommended aspiration of the fluid,possible seroma flap and continue the antibiotics. No chest pain. No palpitations. No fever. EXAM: Alert and oriented x3. The pulse is 84, blood pressure 110/60 respirations 16, temperature 97.2, pulse ox 94% on room air. HEENT: Conjunctivae normal. Oral mucosa moist. NECK: No jugular venous distention. No lymph node enlargement. CARDIOVASCULAR: S1, S2. RESPIRATORY: Diminished breath sounds at the bases. No rhonchi, no crackles. ABDOMEN: Soft, nontender. There is significant erythema and swelling on the left chest wall. LEGS: No edema, no swelling. NERVOUS SYSTEM: No focal deficits. LABS: CBC within normal. Sodium 137, potassium 4.3, CO2 is 20. ASSESSMENT: 1. Acute cellulitis with possible abscess of the left chest wall, possible seroma with severe pain with SIRS, present on admission. 2. History of bilateral mastectomy and as well as lumpectomy and breast cancer. 3. Increased WBC. 4. History of restless legs syndrome. 5. History of radiation of the breast. 6. History of asthma. 7. Family history of breast cancer. 8. History of lumpectomy. 9. History of depression. 10.Obesity, body mass of 32.7. RECOMMENDATIONS AND DISCUSSION: I recommend to continue current medications, continue to monitor, symptomatic treatment, continue the antibiotics. As mentioned earlier, recommended aspiration by Dr. Campos. We will continue to monitor. Symptomatic treatment will be provided. Further recommendations to follow. MMODL / IJN: [id number] /
--- NOTE | 2019-11-05 05:33 | PN ---
PROGRESS NOTE DATE OF SERVICE: 11/04/2019 REASON FOR FOLLOWUP: Left chest wall abscess and cellulitis. INTERVAL HISTORY: The patient is currently afebrile. She is breathing comfortably. Still complaining of pain to the left chest wall area. Still some swelling and redness currently with no open wound or any drainage. Denies any chest pain, shortness of breath, cough. No abdominal pain or diarrhea. PHYSICAL EXAMINATION: On examination, blood pressure 110/69 has a pulse 84, temperature 97.9. She is 95% on room air. General description is an elderly female lying in bed in no distress. RESPIRATORY SYSTEM: Unlabored breathing, clear to auscultation anteriorly. HEART: S1, S2. Regular rate and rhythm. ABDOMEN: Soft, no tenderness. Left chest wall did have area of erythema did not show significant improvement compared to yesterday, slightly warm and tender to touch. LABS: White count is 9.6, creatinine 0.57. DIAGNOSTIC IMPRESSION AND PLAN: Patient with left chest wall cellulitis and concern for possible abscess. Waiting for the surgical drainage of fluid, which will be sent for culture both aerobic and anaerobic. Will add cefepime. Continue with vancomycin. Monitor clinical course closely. Continue supportive care. MMODL / IJN: [id number] /
[2019-11-05] MEDS: CHOLECALCIFEROL 1,000 UNIT TAB PO SCH (08:14)
[2019-11-05] MEDS: HEPARIN SODIUM,PORCINE 5,000 UNIT/ML 1 ML VIAL SQ SCH ×2 (08:14→22:23)
[2019-11-05] MEDS: PANTOPRAZOLE 40 MG TABLET PO SCH (08:15)
[2019-11-05] MEDS: SERTRALINE 50 MG TAB PO SCH (08:15)
[2019-11-05] MEDS: HYDROcodone/APAP 5-325MG 1 EACH TAB PO PRN ×2 (08:15→18:11)
[2019-11-05] MEDS: MONTELUKAST 10 MG TAB PO SCH (08:15)
[2019-11-05] MEDS: ANASTROZOLE 1 MG TAB PO SCH (08:16)
--- NOTE | 2019-11-05 08:43 | P.PN ---
Subjective Progress Note Date: 11/05/19 Patient is a 64-year-old white female admitted with cellulitis of the left chest wall at mastectomy incision site. Mastectomy was approximately one and half years ago. She is presently being treated with vancomycin and cefepime as per infectious disease. The patient's ultrasound of her left chest wall was reviewed with radiology and she is currently scheduled for interventional radiology to do an aspiration/possible bleeding of the pigtail catheter if this looks like an abscess. Objective - Vital Signs Vital signs: Vital Signs Temp 98.0 F 11/05/19 06:04 Pulse 80 11/05/19 06:04 Resp 18 11/05/19 06:04 BP 117/66 11/05/19 06:04 Pulse Ox 96 11/05/19 06:04 Intake & Output 11/04/19 11/05/19 11/05/19 18:59 06:59 18:59 Other: Voiding Method Toilet # Voids 2 2 - Constitutional General appearance: Present: average body habitus - EENT Eyes: Present: EOMI ENT: Present: hearing grossly normal - Integumentary Integumentary Comment(s): Left chest wall decreased erythema, persistent fluctuance consistent with fluid seen on ultrasound - Psychiatric Psychiatric: Present: A&O x's 3, appropriate affect, intact judgment & insight - Labs CBC & Chem 7: 11/04/19 08:19 11/04/19 11:01 Labs: Abnormal Lab Results - Last 24 Hours (Table) 11/04/19 Range/Units 11:01 Chloride 109 H (98-107) mmol/L Carbon Dioxide 20 L (22-30) mmol/L Assessment and Plan Assessment: Impression: 1. Ultrasound left chest wall fluid collection at her mastectomy flap seroma versus abscess 2. No evidence of recurrent cancer 3. Patient on arimidex Plan: 1. Aspiration fluid under seroma flap this can be done at bedside or as per ultrasound guidance 2. Continue antibiotic coverage as per infectious disease 3. We will follow with you 4. ultrasound reviewed with radiology, we will consult interventional radiology for drainage, possible leaving catheter
[2019-11-05 10:37] LABS: Basophils % (A) 0 %; Eosinophils # (A) 0.2 k/uL (0-0.7); Eosinophils % (A) 3 %; HCT 36.7 % (34.0-46.0); Lymphocytes # (A) 1.4 k/uL (1.0-4.8); Lymphocytes % (A) 18 %; MCH 31.5 pg (25.0-35.0); MCHC 32.8 g/dL (31.0-37.0); Mean Platelet Volume 6.9; Monocytes # (A) 0.4 k/uL (0-1.0); Monocytes % (A) 6 %; Neutrophils # (A) 5.6 k/uL (1.3-7.7); Neutrophils % (A) 72 %; Platelet Count 292 k/uL (150-450); RBC 3.82 m/uL (3.80-5.40); RDW 12.3 % (11.5-15.5); WBC 7.8 k/uL (3.8-10.6)
[2019-11-05 10:51] LABS: African American GFR (CKD) >90 (>60 ml/min/1.73 sqM); Anion Gap 7 mmol/L; Blood Urea Nitrogen 15 mg/dL (7-17); Calcium 8.7 mg/dL (8.4-10.2); Carbon Dioxide 23 mmol/L (22-30); Chloride 107 mmol/L (98-107); Glucose 109 mg/dL (74-99); Non-African American GFR(CKD) >90 (>60 ml/min/1.73 sqM); Potassium 3.8 mmol/L (3.5-5.1); Sodium 137 mmol/L (137-145)
[2019-11-05] MEDS: HYDROmorphone 0.5 MG/0.5 ML SYRINGE IVP PRN ×2 (11:16→19:59)
[2019-11-05] MEDS ORDERED: MENTHOL-ZINC OXIDE OINT 113 GM TUBE TOPICAL PRN (16:13)
--- NOTE | 2019-11-05 16:26 | P.PN ---
Subjective Progress Note Date: 11/05/19 Principal diagnosis: This is a 64-year-old female who was recently admitted with pain and ecchymosis of the left chest wall with possible cellulitis and is being closely monitored. Patient is scheduled to undergo possible aspiration of the fluid of the left seroma flap today with Dr. Campos. Infectious disease is following. A short remains on IV antibiotics in the form of cefepime and vancomycin and will continue at this time. Patient continues to have extreme discomfort of the left breast wall that is radiating into the axilla area. No reports of chest pain or palpitations. No reports of shortness of breath. Patient is afebrile. Objective - Vital Signs Vital signs: Vital Signs Temp 98.0 F 11/05/19 12:48 Pulse 82 11/05/19 14:50 Resp 16 11/05/19 16:00 BP 110/56 11/05/19 14:50 Pulse Ox 96 11/05/19 14:50 Intake & Output 11/04/19 11/05/19 11/05/19 18:59 06:59 18:59 Intake Total 540 Balance 540 Intake: Oral 540 Other: Voiding Method Toilet Toilet # Voids 2 2 2 - Exam Gen: This is a 64-year-old female lying in bed, awake, alert and oriented 3, well-developed, well-nourished HEENT: Head is atraumatic, normocephalic. Pupils equal, round. Sclerae is anicteric. NECK: Supple. No JVD. No lymphadenopathy. No thyromegaly. LUNGS: Diminished breath sounds at the bases with No wheezes or rhonchi noted. No intercostal retractions. Left breast chest wall is reddened and indurated and tender upon palpation HEART: Regular rate and rhythm. No murmur. ABDOMEN: Soft. Bowel sounds are present. No masses. No tenderness. EXTREMITIES: No pedal edema. No calf tenderness. NEUROLOGICAL: Patient is awake, alert and oriented x3. Cranial nerves 2 through 12 are grossly intact. - Labs CBC & Chem 7: 11/05/19 10:06 11/05/19 10:06 Labs: Abnormal Lab Results - Last 24 Hours (Table) 11/05/19 Range/Units 10:06 Glucose 109 H (74-99) mg/dL Assessment and Plan Assessment: Acute cellulitis with possible abscess of the left chest wall, possible seroma with severe pain with Sirs, present on admission History of bilateral mastectomy as well as lumpectomy and breast cancer Increased WBC History of restless leg syndrome History of radiation of the breast history of asthma family history of breast cancer history of lumpectomy History of depression Obesity with a body mass index of 32.7 Plan: Continue with IV antibiotics in the form of cefepime and vancomycin. Infectious disease is following. Patient is to undergo possible aspiration of the left breast wall with Dr. Campos today. Will await report. Further recommendations to follow.
--- NOTE | 2019-11-05 16:48 | US ---
EXAMINATION TYPE: US guided chest tube insertion DATE OF EXAM: 11/05/2019 HISTORY: Status post cystectomy, abnormal fluid collection FINDINGS: Maximal barrier technique was utilized. Hand hygiene obtained with soap and water. The skin overlying a suitable path to the fluid in the subcutaneous left breast tissues was localized with ul trasound and the overlying skin prepped and draped. Lidocaine was used for local anesthesia. A skin demi made with a scalpel. Access was gained under direct ultrasound guidance to the fluid with a 21 -gauge needle. Ultrasound was utilized using sterile technique. A 0.018 inch wire was advanced. Acc ess site was dilated and an 8-Finnish catheter advanced into the fluid collection. Turbid yellow flui d returned and was submitted for laboratory analysis. Catheter fixed to the skin. Hemostasis achiev ed. No immediate complication and the patient remained in stable condition. IMPRESSION: STATUS POST ULTRASOUND GUIDED FLUID COLLECTION DRAINAGE, THIS PROCEDURE WAS PERFORMED BY THE UNDERSIGNED. Microbiology and cytology is pending.
[2019-11-05] MEDS ORDERED: PETROLAT,WHITE/LAN/8-HYDROXYQU 227 GM OINT TOPICAL PRN (17:28)
--- NOTE | 2019-11-05 19:02 | PN ---
PROGRESS NOTE DATE OF SERVICE: 11/05/2019 REASON FOR FOLLOWUP: Left chest wall cellulitis with question of abscess. INTERVAL HISTORY: The patient is currently afebrile. She has been breathing comfortably. She was seen on rounds this morning while the patient was waiting for the CT-guided aspirate of this area. The patient denies having any chest pain. No nausea, vomiting, no abdominal pain, no diarrhea. PHYSICAL EXAMINATION: Blood pressure is 110/56, pulse of 82, temperature 98. She is 97% on room air. General description is an elderly female lying in bed in no distress. Respiratory system: Unlabored breathing. Clear to auscultation anteriorly. Heart S1, S2. Regular rate and rhythm. ABDOMEN: Soft. No tenderness. LABS: Hemoglobin is 12, white count 7.8. Creatinine is 0.59. DIAGNOSTIC IMPRESSION AND PLAN: Patient with left site blood and fluid collection culture with concern for MRSA abscess status post aspirate. Will follow up on the cultures. Continue patient on vancomycin and cefepime. We will monitor the clinical course closely. MMODL / IJN: [id number] /
[2019-11-05] MEDS: SERTRALINE 25 MG TAB PO SCH (22:23)
[2019-11-06] MEDS: VANCOMYCIN 1,500 MG in SODIUM CHLORIDE 0.9% 250 ML IVPB SCH ×2 (00:18→12:29)
[2019-11-06] MEDS: HYDROcodone/APAP 5-325MG 1 EACH TAB PO PRN ×3 (00:18→21:04)
[2019-11-06] MEDS: CEFEPIME 2 GM in SODIUM CHLORIDE 0.9% 100 ML IVPB SCH ×2 (08:01→22:28)
[2019-11-06] MEDS: MONTELUKAST 10 MG TAB PO SCH (09:15)
[2019-11-06] MEDS: PANTOPRAZOLE 40 MG TABLET PO SCH (09:15)
[2019-11-06] MEDS: CHOLECALCIFEROL 1,000 UNIT TAB PO SCH (09:15)
[2019-11-06] MEDS: SERTRALINE 50 MG TAB PO SCH (09:15)
[2019-11-06] MEDS: ANASTROZOLE 1 MG TAB PO SCH (09:16)
[2019-11-06] MEDS: HEPARIN SODIUM,PORCINE 5,000 UNIT/ML 1 ML VIAL SQ SCH ×2 (09:16→21:05)
[2019-11-06 09:47] LABS: Basophils % (A) 1 %; Eosinophils # (A) 0.3 k/uL (0-0.7); Eosinophils % (A) 5 %; HGB 12.1 gm/dL (11.4-16.0); Lymphocytes # (A) 1.6 k/uL (1.0-4.8); Lymphocytes % (A) 24 %; MCH 31.4 pg (25.0-35.0); MCHC 32.6 g/dL (31.0-37.0); MCV 96.1 fL (80.0-100.0); Mean Platelet Volume 7.1; Monocytes # (A) 0.3 k/uL (0-1.0); Monocytes % (A) 5 %; Neutrophils # (A) 4.1 k/uL (1.3-7.7); Neutrophils % (A) 63 %; Platelet Count 317 k/uL (150-450); RBC 3.85 m/uL (3.80-5.40); RDW 12.4 % (11.5-15.5); WBC 6.5 k/uL (3.8-10.6)
[2019-11-06 10:04] LABS: African American GFR (CKD) >90 (>60 ml/min/1.73 sqM); Blood Urea Nitrogen 13 mg/dL (7-17); Calcium 8.8 mg/dL (8.4-10.2); Carbon Dioxide 25 mmol/L (22-30); Chloride 108 mmol/L (98-107); Glucose 112 mg/dL (74-99); Non-African American GFR(CKD) >90 (>60 ml/min/1.73 sqM); Potassium 3.7 mmol/L (3.5-5.1)
[2019-11-06 10:15] LABS: Anion Gap 5 mmol/L; Sodium 138 mmol/L (137-145)
[2019-11-06] MEDS ORDERED: VANCOMYCIN TROUGH DUE 1 EACH MISC MISCELLANE ONE ×2 (12:00)
--- NOTE | 2019-11-06 15:15 | P.PN ---
Subjective 64-year-old female who was recently admitted with pain and ecchymosis of the left chest wall with possible cellulitis and is being closely monitored. Patient is scheduled to undergo possible aspiration of the fluid of the left seroma flap today with Dr. Campos. Infectious disease is following. A short remains on IV antibiotics in the form of cefepime and vancomycin and will continue at this time. Patient continues to have extreme discomfort of the left breast wall that is radiating into the axilla area. No reports of chest pain or palpitations. No reports of shortness of breath. Patient is afebrile. 11/06/2019 Patient is status post drainage of the abscess in the left breast wound cultures are still pending patient on broad-spectrum antibiotics, cefepime and vancomycin. Patient has a surgical drain in place. Constitutional: Denied any fatigue denied any fever. Cardio vascular: denied any chest pain, palpitations Gastrointestinal denied any nausea vomiting Pulmonary: Denied any shortness of breath cough Neurologic denied any new focal deficits All inpatient medications were reviewed and appropriate changes in these medications as dictated in the interval history and assessment and plan. Objective - Vital Signs Vital signs: Vital Signs Temp 98.5 F 11/06/19 12:25 Pulse 72 11/06/19 12:25 Resp 16 11/06/19 15:08 BP 120/66 11/06/19 12:25 Pulse Ox 97 11/06/19 12:25 Intake & Output 11/05/19 11/06/19 11/06/19 18:59 06:59 18:59 Intake Total 1080 540 Output Total 90 60 10 Balance 990 -60 530 Intake: Oral 1080 540 Output: Drainage 90 60 10 Left Breast 90 60 10 Other: Voiding Method Toilet Toilet Toilet # Voids 2 2 3 - Exam Gen: This is a 64-year-old female lying in bed, awake, alert and oriented 3, well-developed, well-nourished HEENT: Head is atraumatic, normocephalic. Pupils equal, round. Sclerae is anicteric. NECK: Supple. No JVD. No lymphadenopathy. No thyromegaly. Left breast surgical drain with some serous drainage LUNGS: Diminished breath sounds at the bases with No wheezes or rhonchi noted. No intercostal retractions. Left breast chest wall is reddened and indurated and tender upon palpation HEART: Regular rate and rhythm. No murmur. ABDOMEN: Soft. Bowel sounds are present. No masses. No tenderness. EXTREMITIES: No pedal edema. No calf tenderness. NEUROLOGICAL: Patient is awake, alert and oriented x3. Cranial nerves 2 through 12 are grossly intact. - Labs CBC & Chem 7: 11/06/19 08:56 11/06/19 08:56 Labs: Abnormal Lab Results - Last 24 Hours (Table) 11/06/19 11/06/19 Range/Units 01:10 08:56 Chloride 108 H (98-107) mmol/L Glucose 112 H (74-99) mg/dL Vancomycin Trough 32.2 H* ug/mL Microbiology - Last 24 Hours (Table) 11/05/19 12:10 Gram Stain - Preliminary Aspirate Body Fluid Culture - Preliminary 11/05/19 12:36 Fungal Culture - Preliminary Chest 11/05/19 12:10 Anaerobic Culture - Preliminary Chest Assessment and Plan Plan: Assessment and Plan Assessment: Acute cellulitis with possible abscess of the left chest wall, possible abscess with severe pain with Sirs, present on admission and the patient is on vancomycin and cefepime pending wound cultures status post incision and drainage History of bilateral mastectomy as well as lumpectomy and breast cancer Increased WBC History of restless leg syndrome History of radiation of the breast history of asthma family history of breast cancer history of lumpectomy History of depression Obesity with a body mass index of 32.7
[2019-11-06] MEDS: SERTRALINE 25 MG TAB PO SCH (21:04)
[2019-11-07] MEDS: VANCOMYCIN 1,500 MG in SODIUM CHLORIDE 0.9% 250 ML IVPB SCH ×2 (02:16→12:09)
--- NOTE | 2019-11-07 05:15 | PN ---
PROGRESS NOTE DATE OF SERVICE: 11/06/2019. REASON FOR FOLLOWUP: Left chest wall cellulitis and question of abscess. INTERVAL HISTORY: The patient is currently afebrile. She has been breathing comfortably. The patient still complaining of pain to the left chest wall area. Redness has slightly decreased. No nausea, no vomiting. No abdominal pain. No diarrhea. PHYSICAL EXAMINATION: Blood pressure 122/66, pulse of 77, temperature 98.1. She is 98% on room air. General description is an elderly female lying in bed in no distress. RESPIRATORY SYSTEM: Unlabored breathing, clear to auscultation anteriorly. HEART: S1, S2. Regular rate and rhythm. ABDOMEN: Soft, no tenderness. LABS: Hemoglobin is 12.1, white count 6.5, creatinine 0.56. Vanco level 32 repeat is 17. Cultures currently pending. DIAGNOSTIC IMPRESSION AND PLAN: Patient with left chest wall cellulitis and concern for possible abscess. The patient is status post ultrasound-guided drainage of the same. The patient is covered with vancomycin and cefepime, to continue while waiting for the culture to finalize. Continue with supportive care. MMODL / IJN: [id number] /
[2019-11-07] MEDS: ANASTROZOLE 1 MG TAB PO SCH (09:51)
[2019-11-07] MEDS: CHOLECALCIFEROL 1,000 UNIT TAB PO SCH (09:51)
[2019-11-07] MEDS: SERTRALINE 50 MG TAB PO SCH (09:52)
[2019-11-07] MEDS: PANTOPRAZOLE 40 MG TABLET PO SCH (09:52)
[2019-11-07] MEDS: HEPARIN SODIUM,PORCINE 5,000 UNIT/ML 1 ML VIAL SQ SCH ×2 (09:53→20:44)
[2019-11-07] MEDS: MONTELUKAST 10 MG TAB PO SCH (09:55)
[2019-11-07] MEDS: CEFEPIME 2 GM in SODIUM CHLORIDE 0.9% 100 ML IVPB SCH (10:47)
--- NOTE | 2019-11-07 13:49 | P.PN ---
Subjective 64-year-old female who was recently admitted with pain and ecchymosis of the left chest wall with possible cellulitis and is being closely monitored. Patient is scheduled to undergo possible aspiration of the fluid of the left seroma flap today with Dr. Campos. Infectious disease is following. A short remains on IV antibiotics in the form of cefepime and vancomycin and will continue at this time. Patient continues to have extreme discomfort of the left breast wall that is radiating into the axilla area. No reports of chest pain or palpitations. No reports of shortness of breath. Patient is afebrile. 11/06/2019 Patient is status post drainage of the abscess in the left breast wound cultures are still pending patient on broad-spectrum antibiotics, cefepime and vancomycin. Patient has a surgical drain in place. 11/07/2019 -Patient won't cultures are abscess cultures are still pending, not be positive as patient was already receiving antibiotics before incision and drainage but we will will wait for 1 more day possibly of discharge tomorrow patient is presently on broad-spectrum antibiotics Constitutional: Denied any fatigue denied any fever. Cardio vascular: denied any chest pain, palpitations Gastrointestinal denied any nausea vomiting Pulmonary: Denied any shortness of breath cough Neurologic denied any new focal deficits All inpatient medications were reviewed and appropriate changes in these medications as dictated in the interval history and assessment and plan. Objective - Vital Signs Vital signs: Vital Signs Temp 98.3 F 11/07/19 12:03 Pulse 77 11/07/19 12:03 Resp 17 11/07/19 12:03 BP 126/75 11/07/19 12:03 Pulse Ox 94 L 11/07/19 06:10 Intake & Output 11/06/19 11/07/19 11/07/19 18:59 06:59 18:59 Intake Total 1080 Output Total 10 80 Balance 1070 -80 Intake: Oral 1080 Output: Drainage 10 80 Left Breast 10 80 Other: Voiding Method Toilet Toilet Toilet # Voids 1 3 - Exam Gen: This is a 64-year-old female lying in bed, awake, alert and oriented 3, well-developed, well-nourished HEENT: Head is atraumatic, normocephalic. Pupils equal, round. Sclerae is anicteric. NECK: Supple. No JVD. No lymphadenopathy. No thyromegaly. Left breast surgical drain with some serous drainage LUNGS: Diminished breath sounds at the bases with No wheezes or rhonchi noted. No intercostal retractions. Left breast chest wall is reddened and indurated and tender upon palpation HEART: Regular rate and rhythm. No murmur. ABDOMEN: Soft. Bowel sounds are present. No masses. No tenderness. EXTREMITIES: No pedal edema. No calf tenderness. NEUROLOGICAL: Patient is awake, alert and oriented x3. Cranial nerves 2 through 12 are grossly intact. - Labs CBC & Chem 7: 11/06/19 08:56 11/06/19 08:56 Labs: Microbiology - Last 24 Hours (Table) 11/05/19 12:10 Gram Stain - Preliminary Aspirate Body Fluid Culture - Preliminary Assessment and Plan Plan: Assessment and Plan Assessment: Acute cellulitis with possible abscess of the left chest wall, possible abscess with severe pain with Sirs, present on admission and the patient is on vancomycin and cefepime pending wound cultures status post incision and drainage History of bilateral mastectomy as well as lumpectomy and breast cancer Increased WBC History of restless leg syndrome History of radiation of the breast history of asthma family history of breast cancer history of lumpectomy History of depression Obesity with a body mass index of 32.7
--- NOTE | 2019-11-07 14:58 | PN ---
PROGRESS NOTE DATE OF SERVICE: 11/07/2019 REASON FOR VISIT: Left chest wall cellulitis and question of abscess. INTERVAL HISTORY: The patient is currently afebrile. She has been breathing comfortably. The left chest wall pain and swelling has decreased. The patient denies having any chest pain or shortness of breath. No abdominal pain or diarrhea. PHYSICAL EXAM: Blood pressure 126/75, pulse of 97, temperature 98.3. General description is an elderly female lying in bed in no distress. Respiratory system: Unlabored breathing, clear to auscultation anteriorly. Heart S1, S2. Regular rate and rhythm. Abdomen soft, no tenderness. LABS: Cultures are currently pending. Blood cultures have been negative. DIAGNOSTIC IMPRESSION AND PLAN: 1. Patient with left chest wall cellulitis with evidence of underlying fluid. Concern for possible ( ) versus abscess. Blood culture has been negative so far. Antibiotic will be transitioned to ( ) 2 gm p.o. q8 hours as the culture has been negative ( ). MMODL / IJN: [id number] /
[2019-11-07] MEDS: HYDROcodone/APAP 5-325MG 1 EACH TAB PO PRN (20:43)
[2019-11-07] MEDS: SERTRALINE 25 MG TAB PO SCH (20:43)
[2019-11-08 08:22] LABS: African American GFR (CKD) >90 (>60 ml/min/1.73 sqM); Anion Gap 8 mmol/L; Blood Urea Nitrogen 14 mg/dL (7-17); Calcium 9.2 mg/dL (8.4-10.2); Carbon Dioxide 26 mmol/L (22-30); Chloride 105 mmol/L (98-107); Glucose 137 mg/dL (74-99); Non-African American GFR(CKD) >90 (>60 ml/min/1.73 sqM); Potassium 3.9 mmol/L (3.5-5.1); Sodium 139 mmol/L (137-145)
[2019-11-08] MEDS: MONTELUKAST 10 MG TAB PO SCH (08:27)
[2019-11-08] MEDS: PANTOPRAZOLE 40 MG TABLET PO SCH (08:27)
[2019-11-08] MEDS: HEPARIN SODIUM,PORCINE 5,000 UNIT/ML 1 ML VIAL SQ SCH (08:27)
[2019-11-08] MEDS: CHOLECALCIFEROL 1,000 UNIT TAB PO SCH (08:27)
[2019-11-08] MEDS: SERTRALINE 50 MG TAB PO SCH (08:27)
[2019-11-08] MEDS: ANASTROZOLE 1 MG TAB PO SCH (08:28)
[2019-11-08] MEDS: HYDROcodone/APAP 5-325MG 1 EACH TAB PO PRN (08:33)
[2019-11-08 13:18] VITALS: BP 130/72; PULSE 68; RESP 18; TEMP 98
--- NOTE | 2019-11-08 13:55 | PN ---
PROGRESS NOTE DATE OF SERVICE: 11/08/2019 REASON FOR FOLLOWUP: Left chest wall cellulitis and abscess. INTERVAL HISTORY: The patient is currently afebrile. She has been breathing comfortably. The patient denies having any chest pain or shortness of breath or cough. No nausea, no vomiting. No abdominal pain or diarrhea. PHYSICAL EXAMINATION: Blood pressure is 117/71 with a pulse of 77, temperature 97.9. She is 93% on room air. General description is an elderly female lying in bed in no distress. RESPIRATORY SYSTEM: Unlabored breathing. Clear to auscultation anteriorly. HEART: S1, S2. Regular rate and rhythm. ABDOMEN: Soft. No tenderness. LABS: Creatinine 0.55. The left breast mastectomy site fluid aspirate culture so far negative. DIAGNOSTIC IMPRESSION AND PLAN: Patient with left breast mastectomy site cellulitis and abscess in this patient who is status post CT-guided drainage history because of suspicion for an abscess. However, culture remains negative. We will go ahead and finish therapy with oral Keflex 500 mg t.i.d. q.6 hours for 10 days and monitor clinical course closely. Continue with supportive care. MMODL / IJN: [id number] /
--- NOTE | 2019-11-08 16:29 | P.DS ---
Providers Date of admission: 11/03/19 09:58 Attending physician: Consuelo Jovel Consults: 11/03/19 11:44 Consult Physician Routine Consulting Provider: Clover Strauss Consult Reason/Comments: left chest cellulititis Do you want consulting provider notified?: Already Contacted Placement Type Exists?: Yes 11/03/19 11:46 Consult Physician Routine Consulting Provider: Madeline Campos Consult Reason/Comments: cellulitis left mastectomy Do you want consulting provider notified?: Yes Placement Type Exists?: Yes 11/03/19 11:47 Consult Physician Routine Consulting Provider: Mars Ortiz Consult Reason/Comments: breast ca Do you want consulting provider notified?: Yes Placement Type Exists?: Yes Primary care physician: [facility] Hospital Course: 64-year-old female who was recently admitted with pain and ecchymosis of the left chest wall with possible cellulitis and is being closely monitored. Patient is scheduled to undergo possible aspiration of the fluid of the left seroma flap today with Dr. Campos. Infectious disease is following. A short remains on IV antibiotics in the form of cefepime and vancomycin and will continue at this time. Patient continues to have extreme discomfort of the left breast wall that is radiating into the axilla area. No reports of chest pain or palpitations. No reports of shortness of breath. Patient is afebrile. 11/06/2019 Patient is status post drainage of the abscess in the left breast wound cultures are still pending patient on broad-spectrum antibiotics, cefepime and vancomycin. Patient has a surgical drain in place. 11/07/2019 -Patient won't cultures are abscess cultures are still pending, not be positive as patient was already receiving antibiotics before incision and drainage but we will will wait for 1 more day possibly of discharge tomorrow patient is presently on broad-spectrum antibiotics 11/08/2019 patient will be discharged today patient will be discharged with the drain and Keflex for 10 days. Patient follows with infectious disease as an outpatient. And surgery as an outpatient - Exam Gen: This is a 64-year-old female lying in bed, awake, alert and oriented 3, well-developed, well-nourished HEENT: Head is atraumatic, normocephalic. Pupils equal, round. Sclerae is anicteric. NECK: Supple. No JVD. No lymphadenopathy. No thyromegaly. Left breast surgical drain with some serous drainage LUNGS: Diminished breath sounds at the bases with No wheezes or rhonchi noted. No intercostal retractions. Left breast chest wall is reddened and indurated and tender upon palpation HEART: Regular rate and rhythm. No murmur. ABDOMEN: Soft. Bowel sounds are present. No masses. No tenderness. EXTREMITIES: No pedal edema. No calf tenderness. NEUROLOGICAL: Patient is awake, alert and oriented x3. Cranial nerves 2 through 12 are grossly intact. Assessment and Plan Assessment: Acute cellulitis with abscess of the left chest wall, possible abscess patient is being discharged on Keflex History of bilateral mastectomy as well as lumpectomy and breast cancer Increased WBC History of restless leg syndrome History of radiation of the breast history of asthma family history of breast cancer history of lumpectomy History of depression Obesity with a body mass index of 32.7 Patient Condition at Discharge: Stable Plan - Discharge Summary Discharge Rx Participant: No New Discharge Prescriptions: New HYDROcodone/APAP 5-325MG [[place] 5-325] 1 each PO Q6HR PRN #14 tab PRN Reason: MODERATE Pain Sertraline [Zoloft] 25 mg PO HS #30 tab Cephalexin [Keflex] 500 mg PO Q6HR #40 cap Continue Cholecalciferol [Vitamin D3 (25 Mcg = 1000 Iu)] 2,000 unit PO QAM Anastrozole [Arimidex] 1 mg PO DAILY rOPINIRole HCL [Requip] 0.5 mg PO HS #30 tablet Albuterol Sulfate [Albuterol Sulfate Hfa] 2 puff INHALATION RT-BID PRN PRN Reason: Shortness Of Breath Montelukast [Singulair] 10 mg PO DAILY traMADol HCl [Ultram] 50 mg PO DAILY PRN PRN Reason: Pain Sertraline [Zoloft] 50 mg PO DAILY Discharge Medication List Anastrozole [Arimidex] 1 mg PO DAILY 06/04/18 [History] Cholecalciferol [Vitamin D3 (25 Mcg = 1000 Iu)] 2,000 unit PO QAM 06/04/18 [History] rOPINIRole HCL [Requip] 0.5 mg PO HS #30 tablet 06/13/18 [Rx] Albuterol Sulfate [Albuterol Sulfate Hfa] 2 puff INHALATION RT-BID PRN 11/03/19 [History] Montelukast [Singulair] 10 mg PO DAILY 11/03/19 [History] Sertraline [Zoloft] 50 mg PO DAILY 11/03/19 [History] traMADol HCl [Ultram] 50 mg PO DAILY PRN 11/03/19 [History] Cephalexin [Keflex] 500 mg PO Q6HR #40 cap 11/08/19 [Rx] HYDROcodone/APAP 5-325MG [[place] 5-325] 1 each PO Q6HR PRN #14 tab 11/08/19 [Rx] Sertraline [Zoloft] 25 mg PO HS #30 tab 11/08/19 [Rx] Follow up Appointment(s)/Referral(s): [facility] [NON-STAFF] - Madeline Campos MD [STAFF PHYSICIAN] - 1 Week Clover Strauss MD [STAFF PHYSICIAN] - 1 Week Patient Instructions/Handouts: Cellulitis (DC), Mastectomy (DC) Activity/Diet/Wound Care/Special Instructions: notify mold design engineer [phone] when patient is discharged so they can plan for dressing change after D/C Cardiac diet Activity as tolerated keep drain and skin surrounding site clean and dry. keep a record of amount and color and consistency of drainage. notify doctor immediately if you develop sign of infection such as pain/redness/swelling/increased drainage/foul odor/ fever. Discharge Disposition: HOME WITH HOME HEALTH SERVICES
== END 2019-11-08 14:30 | disposition home health service (06) | DRG 863 ==
LOC: 6NMEDSUR 09:58
PROVIDERS: ADMIT Internal Medicine; ATTEND Internal Medicine
PROC: 0W983ZZ Drainage of Chest Wall, Percutaneous Approach (ICD-10-PCS; principal; 2019-11-05)
DX: T81.41XA Infection following a procedure, superficial incisional surgical site, initial encounter (principal); L02.213 Cutaneous abscess of chest wall; L03.313 Cellulitis of chest wall; J98.11 Atelectasis; C50.912 Malignant neoplasm of unspecified site of left female breast; G25.81 Restless legs syndrome; F32.9 Major depressive disorder, single episode, unspecified; E66.9 Obesity, unspecified; J45.909 Unspecified asthma, uncomplicated; Z68.32 Body mass index [BMI] 32.0-32.9, adult; Z79.811 Long term (current) use of aromatase inhibitors; Z79.899 Other long term (current) drug therapy; Z17.0 Estrogen receptor positive status [ER+]; Z92.3 Personal history of irradiation; Z90.13 Acquired absence of bilateral breasts and nipples; Z98.51 Tubal ligation status; Z87.440 Personal history of urinary (tract) infections; Z98.890 Other specified postprocedural states; Z80.3 Family history of malignant neoplasm of breast; Z82.49 Family history of ischemic heart disease and other diseases of the circulatory system
CPT/HCPCS: 32551; 36410; 71045; 76937; 76942; 80048; 80053; 80202; 85025; 87070; 87075; 87102; 87205; 88173; 88305; 94640

== ENCOUNTER 2019-11-21 12:32 | Inpatient (IN) | payer MEDICARE ==
--- NOTE | 2019-11-21 14:12 | ED ---
General Adult HPI - General Chief complaint: Skin/Abscess/Foreign Body Stated complaint: Cellulitis Time Seen by Provider: 11/21/19 12:55 Source: patient Mode of arrival: ambulatory Limitations: no limitations - History of Present Illness Initial comments: The patient is a 64 year old female who presents to the emergency department for left breast cellulitis. The patient had a previous history of left-sided breast cancer with mastectomy. She was recently hospitalized during October for left breast cellulitis. She did require a 6 day hospital stay on IV antibiotics with IR drainage. States that as of 2 days ago she began having redness and swelling to her left chest wall. She followed up with Dr. Ceferino Gordon in office today. She recommended transfer to the hospital with medicine admission. The patient admits to tenderness to palpation. No recorded fevers or chills. Denies any shortness of breath. No currently on any antibiotics. There are no other alleviating, precipitating or modifying factors - Related Data Home Medications Medication Instructions Recorded Confirmed Anastrozole [Arimidex] 1 mg PO DAILY 06/04/18 11/21/19 Cholecalciferol [Vitamin D3 (25 2,000 unit PO DAILY 06/04/18 11/21/19 Mcg = 1000 Iu)] Albuterol Sulfate [Albuterol 2 puff INHALATION RT-BID PRN 11/03/19 11/21/19 Sulfate Hfa] Montelukast [Singulair] 10 mg PO DAILY 11/03/19 11/21/19 Sertraline [Zoloft] 50 mg PO DAILY 11/03/19 11/21/19 traMADol HCl [Ultram] 50 mg PO DAILY PRN 11/03/19 11/21/19 HYDROcodone/APAP 5-325MG [[place] 1 tab PO Q6HR PRN 11/21/19 11/21/19 5-325] Nystatin 100,000 Unit/ml Susp 4 ml PO QID 11/21/19 11/21/19 [Mycostatin Oral Susp] Previous Rx's Medication Instructions Recorded rOPINIRole HCL [Requip] 0.5 mg PO HS #30 tablet 06/13/18 Sertraline [Zoloft] 25 mg PO HS #30 tab 11/08/19 Famotidine [Pepcid] 20 mg PO BID #30 tablet 11/24/19 Naproxen [Naprosyn] 250 mg PO TID #30 tab 11/24/19 Allergies Allergy/AdvReac Type Severity Reaction Status Date / Time No Known Allergies Allergy Verified 11/21/19 15:44 Review of Systems ROS Statement: Those systems with pertinent positive or pertinent negative responses have been documented in the HPI. ROS Other: All systems not noted in ROS Statement are negative. Past Medical History Past Medical History: Asthma, Cancer Additional Past Medical History / Comment(s): restless leg syndrome, left breast cancer-had 23 radiation tx-last Aug 2017 History of Any Multi-Drug Resistant Organisms: None Reported Past Surgical History: Breast Surgery, Tubal Ligation Additional Past Surgical History / Comment(s): left breast lumpectomy 2017, do uble mastectomy 2018 Past Anesthesia/Blood Transfusion Reactions: No Reported Reaction Past Psychological History: Depression Smoking Status: Never smoker Past Alcohol Use History: None Reported Past Drug Use History: None Reported - Past Family History Mother Family Medical History: No Reported History Additional Family Medical History / Comment(s): 3 AUNTS WITH HX OF BREAST CANCER Father Family Medical History: Hypertension General Exam Limitations: no limitations General appearance: alert, in no apparent distress Neck exam: Present: normal inspection. Absent: tenderness, meningismus, lymphadenopathy Respiratory exam: Present: normal lung sounds bilaterally. Absent: respiratory distress, wheezes, rales, rhonchi, stridor Cardiovascular Exam: Present: regular rate, normal rhythm, normal heart sounds. Absent: systolic murmur, diastolic murmur, rubs, gallop, clicks GI/Abdominal exam: Present: soft, normal bowel sounds. Absent: distended, tenderness, guarding, rebound, rigid Extremities exam: Present: normal inspection, full ROM, normal capillary refill. Absent: tenderness, pedal edema, joint swelling, calf tenderness Back exam: Present: normal inspection Neurological exam: Present: alert, oriented X3, CN II-XII intact Psychiatric exam: Present: normal affect, normal mood Skin exam: Present: other (patient has well healed scars over her bilateral ch est wall. Left chest wall scar is puckered with overlying redness and warmth. No idenitfiable areas of fluctance appreciate. No draining sites.) Course Vital Signs 11/21/19 11/21/19 12:56 15:14 Temperature 97.9 F Pulse Rate 79 83 Respiratory 20 16 Rate Blood Pressure 133/79 139/69 O2 Sat by Pulse 98 94 L Oximetry Medical Decision Making - Medical Decision Making Upon arrival the patient is placed in room 18. A thorough history and physical exam was performed. Laboratory studies were conducted. White blood cell count and lactic acid normal. I did obtain a blood culture. I did initiate the patient on Unasyn and Vanco. I discussed the case with Dr. Montoya who accepted admission. I'll place Dr. Myers and Dr. Valle consult. The patient was transferred to the floor in stable condition - Lab Data Result diagrams: 11/23/19 06:25 11/23/19 06:25 Lab Results 11/21/19 11/21/19 11/21/19 Range/Units 14:00 14:00 14:00 WBC 7.3 (3.8-10.6) k/uL RBC 4.54 (3.80-5.40) m/uL Hgb 14.0 (11.4-16.0) gm/dL Hct 43.6 (34.0-46.0) % MCV 96.0 (80.0-100.0) fL MCH 30.9 (25.0-35.0) pg MCHC 32.2 (31.0-37.0) g/dL RDW 12.4 (11.5-15.5) % Plt Count 362 (150-450) k/uL Neutrophils % 54 % Lymphocytes % 35 % Monocytes % 5 % Eosinophils % 3 % Basophils % 1 % Neutrophils # 4.0 (1.3-7.7) k/uL Lymphocytes # 2.6 (1.0-4.8) k/uL Monocytes # 0.4 (0-1.0) k/uL Eosinophils # 0.2 (0-0.7) k/uL Basophils # 0.0 (0-0.2) k/uL ESR (0-20) mm/hr Sodium 139 (137-145) mmol/L Potassium 4.2 (3.5-5.1) mmol/L Chloride 108 H (98-107) mmol/L Carbon Dioxide 22 (22-30) mmol/L Anion Gap 9 mmol/L BUN 18 H (7-17) mg/dL Creatinine 0.60 (0.52-1.04) mg/dL Est GFR (CKD-EPI)AfAm >90 (>60 ml/min/1.73 sqM) Est GFR (CKD-EPI)NonAf >90 (>60 ml/min/1.73 sqM) Glucose 93 (74-99) mg/dL Plasma Lactic Acid Elier 1.2 (0.7-2.0) mmol/L Calcium 9.8 (8.4-10.2) mg/dL Total Bilirubin 0.6 (0.2-1.3) mg/dL AST 32 (14-36) U/L ALT 22 (4-34) U/L Alkaline Phosphatase 76 (38-126) U/L C-Reactive Protein (<10.0) mg/L Total Protein 7.2 (6.3-8.2) g/dL Albumin 4.3 (3.5-5.0) g/dL 11/22/19 11/22/19 11/23/19 Range/Units 07:00 07:00 06:25 WBC 5.6 6.3 (3.8-10.6) k/uL RBC 4.04 4.14 (3.80-5.40) m/uL Hgb 12.6 13.2 (11.4-16.0) gm/dL Hct 39.3 39.7 (34.0-46.0) % MCV 97.2 95.8 (80.0-100.0) fL MCH 31.2 31.8 (25.0-35.0) pg MCHC 32.1 33.2 (31.0-37.0) g/dL RDW 12.4 12.5 (11.5-15.5) % Plt Count 309 289 (150-450) k/uL Neutrophils % 48 50 % Lymphocytes % 38 35 % Monocytes % 8 8 % Eosinophils % 4 4 % Basophils % 0 1 % Neutrophils # 2.7 3.2 (1.3-7.7) k/uL Lymphocytes # 2.1 2.2 (1.0-4.8) k/uL Monocytes # 0.4 0.5 (0-1.0) k/uL Eosinophils # 0.2 0.3 (0-0.7) k/uL Basophils # 0.0 0.0 (0-0.2) k/uL ESR 18 (0-20) mm/hr Sodium 137 (137-145) mmol/L Potassium 3.8 (3.5-5.1) mmol/L Chloride 110 H (98-107) mmol/L Carbon Dioxide 20 L (22-30) mmol/L Anion Gap 7 mmol/L BUN 14 (7-17) mg/dL Creatinine 0.57 (0.52-1.04) mg/dL Est GFR (CKD-EPI)AfAm >90 (>60 ml/min/1.73 sqM) Est GFR (CKD-EPI)NonAf >90 (>60 ml/min/1.73 sqM) Glucose 101 H (74-99) mg/dL Plasma Lactic Acid Elier (0.7-2.0) mmol/L Calcium 8.9 (8.4-10.2) mg/dL Total Bilirubin (0.2-1.3) mg/dL AST (14-36) U/L ALT (4-34) U/L Alkaline Phosphatase (38-126) U/L C-Reactive Protein (<10.0) mg/L Total Protein (6.3-8.2) g/dL Albumin (3.5-5.0) g/dL 11/23/19 Range/Units 06:25 WBC (3.8-10.6) k/uL RBC (3.80-5.40) m/uL Hgb (11.4-16.0) gm/dL Hct (34.0-46.0) % MCV (80.0-100.0) fL MCH (25.0-35.0) pg MCHC (31.0-37.0) g/dL RDW (11.5-15.5) % Plt Count (150-450) k/uL Neutrophils % % Lymphocytes % % Monocytes % % Eosinophils % % Basophils % % Neutrophils # (1.3-7.7) k/uL Lymphocytes # (1.0-4.8) k/uL Monocytes # (0-1.0) k/uL Eosinophils # (0-0.7) k/uL Basophils # (0-0.2) k/uL ESR (0-20) mm/hr Sodium 137 (137-145) mmol/L Potassium 4.3 (3.5-5.1) mmol/L Chloride 106 (98-107) mmol/L Carbon Dioxide 23 (22-30) mmol/L Anion Gap 8 mmol/L BUN 17 (7-17) mg/dL Creatinine 0.56 (0.52-1.04) mg/dL Est GFR (CKD-EPI)AfAm >90 (>60 ml/min/1.73 sqM) Est GFR (CKD-EPI)NonAf >90 (>60 ml/min/1.73 sqM) Glucose 105 H (74-99) mg/dL Plasma Lactic Acid Elier (0.7-2.0) mmol/L Calcium 9.4 (8.4-10.2) mg/dL Total Bilirubin (0.2-1.3) mg/dL AST (14-36) U/L ALT (4-34) U/L Alkaline Phosphatase (38-126) U/L C-Reactive Protein 18.4 H (<10.0) mg/L Total Protein (6.3-8.2) g/dL Albumin (3.5-5.0) g/dL Disposition Clinical Impression: Cellulitis of left breast, Post-mastectomy deformity of breast Disposition: ADMITTED IP TO THIS [facility] Condition: Stable Is patient prescribed a controlled substance at d/c from ED?: No Decision to Admit Reason: Admit from EC Decision Date: 11/21/19 Decision Time: 14:12
[2019-11-21 14:13] LABS: Basophils % (A) 1 %; Eosinophils # (A) 0.2 k/uL (0-0.7); Eosinophils % (A) 3 %; HCT 43.6 % (34.0-46.0); Lymphocytes # (A) 2.6 k/uL (1.0-4.8); Lymphocytes % (A) 35 %; MCH 30.9 pg (25.0-35.0); MCHC 32.2 g/dL (31.0-37.0); Monocytes # (A) 0.4 k/uL (0-1.0); Monocytes % (A) 5 %; Neutrophils % (A) 54 %; Platelet Count 362 k/uL (150-450); RBC 4.54 m/uL (3.80-5.40); RDW 12.4 % (11.5-15.5); WBC 7.3 k/uL (3.8-10.6)
[2019-11-21] MEDS ORDERED: VANCOMYCIN IV PER PHARMACY 1 EACH MISC MISCELLANE PRN (14:13)
[2019-11-21] MEDS ORDERED: AMPICILLIN-SULBACTAM 3 GM in SODIUM CHLORIDE 0.9% 100 ML IVPB STA (14:13)
[2019-11-21 14:27] LABS: ALT 22 U/L (4-34); AST 32 U/L (14-36); African American GFR (CKD) >90 (>60 ml/min/1.73 sqM); Albumin 4.3 g/dL (3.5-5.0); Alkaline Phosphatase 76 U/L (38-126); Anion Gap 9 mmol/L; Blood Urea Nitrogen 18 mg/dL (7-17); Calcium 9.8 mg/dL (8.4-10.2); Carbon Dioxide 22 mmol/L (22-30); Chloride 108 mmol/L (98-107); Glucose 93 mg/dL (74-99); Non-African American GFR(CKD) >90 (>60 ml/min/1.73 sqM); Sodium 139 mmol/L (137-145); Total Bilirubin 0.6 mg/dL (0.2-1.3); Total Protein 7.2 g/dL (6.3-8.2)
[2019-11-21 14:34] LABS: Potassium 4.2 mmol/L (3.5-5.1)
[2019-11-21] MEDS ORDERED: NALOXONE 0.4 MG/ML 1 ML VIAL IV PRN (14:38)
[2019-11-21] MEDS ORDERED: VANCOMYCIN 1,750 MG in SODIUM CHLORIDE 0.9% 500 ML 500 ML IVPB ONE (15:00)
[2019-11-21] MEDS ORDERED: traMADol 50 MG TAB PO PRN (20:06)
[2019-11-21] MEDS ORDERED: HYDROcodone/APAP 5-325MG 1 EACH TAB PO PRN (20:06)
[2019-11-21] MEDS: NYSTATIN 100,000 UNIT/ML SUSP 500,000 UNIT/5 ML CUP PO SCH (21:45)
[2019-11-21] MEDS: SERTRALINE 25 MG TAB PO SCH (21:45)
[2019-11-21] MEDS ORDERED: NYSTATIN 100,000 UNIT/ML SUSP 500,000 UNIT/5 ML CUP PO SCH (22:00)
--- NOTE | 2019-11-21 22:29 | P.HPIM ---
History of Present Illness H&P Date: 11/21/19 Chief Complaint: Left breast surgical site pain History of presenting complaint: This is a very pleasant [address] Jose Miguel Mathews. About 2 years ago patient underwent left mastectomy. Patient was here on November 03, with infection of the mastectomy site. Cultures from infected site were negative. Patient was then seen by Dr. Shah from [place]. Patient was sent home on Keflex for 10 days. Patient went home on November 08. Patient now presents with 2 days of increased redness tenderness chills at the site on the left mastectomy bedside. Her nausea. Started on Unasyn and vancomycin the ER. Chronic stable medical conditions include osteoarthritis, restless leg syndrome, asthma, depression. Review of systems: GEN.: Chills EYES: None HEENT: None NECK: None RESPIRATORY: None CARDIOVASCULAR: None GASTROINTESTINAL: None GENITOURINARY: None MUSCULOSKELETAL: As above LYMPHATICS: None HEMATOLOGICAL: None PSYCHIATRY: None NEUROLOGICAL: Restless leg Past medical history to include: Depression, asthma, restless leg syndrome, osteoarthritis, left breast cancer leading to mastectomy Social history: Does not smoke or drink alcohol, Physical examination: VITAL SIGNS: 97.9, 68, 18, 130/72, 92% on room air GENERAL: BMI 32.6, laying in bed, awake. EYES: Pupils equal. Conjunctiva normal. HEENT: External appearance of nose and ears normal, oral cavity grossly normal. NECK: JVD not raised; masses not palpable. HEART: First and second heart sounds are normal; no edema. LUNGS: Respiratory rate normal; clear to auscultation CHEST wall: Redness along the incision site in the left breast area going down to the axilla with areas of tenderness. Area has been marked with a skin pencil... ABDOMEN: Soft, nontender, liver spleen not palpable, no masses palpable. PSYCH: Alert and oriented x3; mood and affect normal. NEUROLOGICAL: Cranial nerves grossly intact; no facial asymmetry, power and sensation grossly intact. LYMPHATICS: No lymph nodes palpable in the axilla and neck INVESTIGATIONS, reviewed in the clinical context: White count 7.3 hemoglobin 14 potassium 4.2 creatinine 0.60 Assessment: -Acute cellulitis and a prior mastectomy site with a recent infection of the same side. Cultures of the last admission were negative. l -Depression otherwise specified -Intermittent asthma -Restless leg syndrome -Primary osteoarthritis -Obesity BMI 32.6 Plan: Consultations made to Dr. Madyson De La Vega bowel and Dr. Chapman from infectious disease. Home medications resumed. Patient's currently on vancomycin and Unasyn. Care was discussed with the patient question were answered. We'll add naproxen for anti-inflammatory effect. Past Medical History Past Medical History: Asthma, Cancer Additional Past Medical History / Comment(s): restless leg syndrome, left breast cancer-had 23 radiation tx-last Aug 2017 History of Any Multi-Drug Resistant Organisms: None Reported Past Surgical History: Breast Surgery, Tubal Ligation Additional Past Surgical History / Comment(s): left breast lumpectomy 2017, double mastectomy 2018 Past Anesthesia/Blood Transfusion Reactions: No Reported Reaction Past Psychological History: Depression Smoking Status: Never smoker Past Alcohol Use History: None Reported Past Drug Use History: None Reported - Past Family History Mother Family Medical History: No Reported History Additional Family Medical History / Comment(s): 3 AUNTS WITH HX OF BREAST CANCER Father Family Medical History: Hypertension Medications and Allergies Home Medications Medication Instructions Recorded Confirmed Type Anastrozole [Arimidex] 1 mg PO DAILY 06/04/18 11/21/19 History Cholecalciferol [Vitamin D3 (25 2,000 unit PO DAILY 06/04/18 11/21/19 History Mcg = 1000 Iu)] rOPINIRole HCL [Requip] 0.5 mg PO HS #30 tablet 06/13/18 11/21/19 Rx Albuterol Sulfate [Albuterol 2 puff INHALATION RT-BID PRN 11/03/19 11/21/19 History Sulfate Hfa] Montelukast [Singulair] 10 mg PO DAILY 11/03/19 11/21/19 History Sertraline [Zoloft] 50 mg PO DAILY 11/03/19 11/21/19 History traMADol HCl [Ultram] 50 mg PO DAILY PRN 11/03/19 11/21/19 History Cephalexin [Keflex] 500 mg PO Q6HR #40 cap 11/08/19 11/21/19 Rx Sertraline [Zoloft] 25 mg PO HS #30 tab 11/08/19 11/21/19 Rx HYDROcodone/APAP 5-325MG [[place] 1 tab PO Q6HR PRN 11/21/19 11/21/19 History 5-325] Nystatin 100,000 Unit/ml Susp 4 ml PO QID 11/21/19 11/21/19 History [Mycostatin Oral Susp] Allergies Allergy/AdvReac Type Severity Reaction Status Date / Time No Known Allergies Allergy Verified 11/21/19 15:44 Physical Exam Vitals: Vital Signs Temp Pulse Resp BP Pulse Ox 11/21/19 15:14 83 16 139/69 94 L 11/21/19 12:56 97.9 F 79 20 133/79 98 Intake and Output 11/21/19 11/21/19 11/21/19 06:59 14:59 22:59 Other: Weight 88.904 kg 88.904 kg Results CBC & Chem 7: 11/21/19 14:00 11/21/19 14:00 Labs: Abnormal Lab Results - Last 24 Hours (Table) 11/21/19 Range/Units 14:00 Chloride 108 H (98-107) mmol/L BUN 18 H (7-17) mg/dL Thrombosis Risk Factor Assmnt - Choose All That Apply Any of the Below Risk Factors Present?: Yes Each Factor Represents 1 point: Obesity (BMI >25) Other Risk Factors: Yes Each Risk Factor Represents 2 Points: Age 61-74 years Thrombosis Risk Factor Assessment Total Risk Factor Score: 3 Thrombosis Risk Factor Assessment Level: Moderate Risk
[2019-11-21] MEDS ORDERED: ENOXAPARIN 40 MG/0.4 ML SYRINGE SQ SCH (22:45)
[2019-11-22] MEDS: VANCOMYCIN 1,500 MG in SODIUM CHLORIDE 0.9% 250 ML IVPB SCH ×2 (02:51→14:19)
[2019-11-22 07:25] LABS: Basophils % (A) 0 %; Eosinophils # (A) 0.2 k/uL (0-0.7); Eosinophils % (A) 4 %; HCT 39.3 % (34.0-46.0); HGB 12.6 gm/dL (11.4-16.0); Lymphocytes # (A) 2.1 k/uL (1.0-4.8); Lymphocytes % (A) 38 %; MCH 31.2 pg (25.0-35.0); MCHC 32.1 g/dL (31.0-37.0); MCV 97.2 fL (80.0-100.0); Monocytes # (A) 0.4 k/uL (0-1.0); Monocytes % (A) 8 %; Neutrophils # (A) 2.7 k/uL (1.3-7.7); Neutrophils % (A) 48 %; Platelet Count 309 k/uL (150-450); RBC 4.04 m/uL (3.80-5.40); RDW 12.4 % (11.5-15.5); WBC 5.6 k/uL (3.8-10.6)
[2019-11-22 07:52] LABS: African American GFR (CKD) >90 (>60 ml/min/1.73 sqM); Anion Gap 7 mmol/L; Blood Urea Nitrogen 14 mg/dL (7-17); Calcium 8.9 mg/dL (8.4-10.2); Carbon Dioxide 20 mmol/L (22-30); Chloride 110 mmol/L (98-107); Glucose 101 mg/dL (74-99); Non-African American GFR(CKD) >90 (>60 ml/min/1.73 sqM); Potassium 3.8 mmol/L (3.5-5.1); Sodium 137 mmol/L (137-145)
--- NOTE | 2019-11-22 08:34 | P.CONS ---
History of Present Illness - Reason for Consult Consult date: 11/21/19 left chest wall cellulitis Requesting physician: David Montoya - Chief Complaint left chest wall swelling and redness x 2 days - History of Present Illness Patient is a 74-year female who was recently admitted at this facility in this patient who did have a left chest wall mastectomy site seroma the patient did have a CT-guided drainage of that fluid the culture subsequently came back negative patient was treated with IV antibiotic therapy and was discharged home on November 08 on oral Keflex 500mg 3 times a day for 10 days with the patient has completed patient mentioned the left chest wall drainage catheter was removed about a week ago, over the last few days the patient noticed recurrence of the left chest wall erythema and swelling patient also have some dull aching pain to the left chest wall with intensity about 2-3 out of 10 and no radiation denies high-grade fever or chills patient was evaluated by her surgeon and subsequently discussed the case with me on the phone in view of recurrent cellulitis was advised admission to the hospital for possible drainage and IV antibiotic therapy. Review of Systems Positive point has been mentioned in HPI rest of the systems are negative Past Medical History Past Medical History: Asthma, Cancer Additional Past Medical History / Comment(s): restless leg syndrome, left breast cancer-had 23 radiation tx-last Aug 2017 History of Any Multi-Drug Resistant Organisms: None Reported Past Surgical History: Breast Surgery, Tubal Ligation Additional Past Surgical History / Comment(s): left breast lumpectomy 2017, double mastectomy 2018 Past Anesthesia/Blood Transfusion Reactions: No Reported Reaction Past Psychological History: Depression Smoking Status: Never smoker Past Alcohol Use History: None Reported Past Drug Use History: None Reported - Past Family History Mother Family Medical History: No Reported History Additional Family Medical History / Comment(s): 3 AUNTS WITH HX OF BREAST CANCER Father Family Medical History: Hypertension Medications and Allergies Home Medications Medication Instructions Recorded Confirmed Type Anastrozole [Arimidex] 1 mg PO DAILY 06/04/18 11/21/19 History Cholecalciferol [Vitamin D3 (25 2,000 unit PO DAILY 06/04/18 11/21/19 History Mcg = 1000 Iu)] rOPINIRole HCL [Requip] 0.5 mg PO HS #30 tablet 06/13/18 11/21/19 Rx Albuterol Sulfate [Albuterol 2 puff INHALATION RT-BID PRN 11/03/19 11/21/19 History Sulfate Hfa] Montelukast [Singulair] 10 mg PO DAILY 11/03/19 11/21/19 History Sertraline [Zoloft] 50 mg PO DAILY 11/03/19 11/21/19 History traMADol HCl [Ultram] 50 mg PO DAILY PRN 11/03/19 11/21/19 History Cephalexin [Keflex] 500 mg PO Q6HR #40 cap 11/08/19 11/21/19 Rx Sertraline [Zoloft] 25 mg PO HS #30 tab 11/08/19 11/21/19 Rx HYDROcodone/APAP 5-325MG [[place] 1 tab PO Q6HR PRN 11/21/19 11/21/19 History 5-325] Nystatin 100,000 Unit/ml Susp 4 ml PO QID 11/21/19 11/21/19 History [Mycostatin Oral Susp] Allergies Allergy/AdvReac Type Severity Reaction Status Date / Time No Known Allergies Allergy Verified 11/21/19 15:44 Physical Exam Vitals: Vital Signs Temp Pulse Resp BP Pulse Ox 11/21/19 15:14 83 16 139/69 94 L 11/21/19 12:56 97.9 F 79 20 133/79 98 Intake and Output 11/21/19 11/21/19 11/21/19 06:59 14:59 22:59 Other: Weight 88.904 kg GENERAL DESCRIPTION: Elderly female lying in bed, no distress. No tachypnea or accessory muscle of respiration use. HEENT: Shows Pallor , no scleral icterus. Oral mucous membrane is dry. NECK: Trachea central, no thyromegaly. LUNGS: Unlabored breathing. Clear to auscultation anteriorly. No wheeze or crackle. HEART: S1, S2, regular rate and rhythm. ABDOMEN: Soft, no tenderness , guarding or rigidity EXTREMITIES: No edema of feet. SKIN: No rash, no masses palpable. Left chest wall did have an area of erythema slightly warm to touch and tender NEUROLOGICAL: The patient is awake, alert, oriented x3, mood and affect normal. Results CBC & Chem 7: 11/22/19 07:00 11/22/19 07:00 Labs: Abnormal Lab Results - Last 24 Hours (Table) 11/21/19 Range/Units 14:00 Chloride 108 H (98-107) mmol/L BUN 18 H (7-17) mg/dL Assessment and Plan Assessment: -patient with left chest wall/mastectomy site erythema and seroma formation in this patient who did have ultrasound-guided drainage of this fluid cultures were negative.patient clinically responded to drainage of that fluid and antibiotic therapy now with recurrent seroma questionably infected or not need to be worked up for other etiologies such as recurrence of malignancy (1) Abscess or cellulitis of chest wall Current Visit: No Status: Acute Code(s): [id number] - SNOMED Code(s): 593045729 Plan: 1-we will obtain ultrasound of the left chest wall to make sure no evidence of any fluid which if positive should be drained and sent for cytology in addition to culture 2-we will empirically treat the patient with vancomycin pharmacy to dose We will follow on clinical condition and cultures to further adjust medication if needed Thank you for this consultation we will follow the patient along with you Time with Patient: Greater than 30
[2019-11-22] MEDS: NYSTATIN 100,000 UNIT/ML SUSP 500,000 UNIT/5 ML CUP PO SCH ×4 (08:42→20:20)
[2019-11-22] MEDS: SERTRALINE 50 MG TAB PO SCH (08:42)
[2019-11-22] MEDS: CHOLECALCIFEROL 1,000 UNIT TAB PO SCH (08:42)
[2019-11-22] MEDS: MONTELUKAST 10 MG TAB PO SCH (08:42)
[2019-11-22] MEDS: ANASTROZOLE 1 MG TAB PO SCH (08:43)
--- NOTE | 2019-11-22 09:16 | USB ---
EXAMINATION TYPE: US breast limited LT DATE OF EXAM: 11/22/2019 COMPARISON: US dated 11/03/2019. CLINICAL HISTORY: LEFT MASTECTOMY SITE US TO CHECK FOR FLUID/ABSCESS. Mastectomy approximately 18 mon ths ago. Recent drainage of fluid from chest wall Patient's mastectomy site is red and swollen, left chest wall. Scanning was performed directly over left chest wall, reddened area. No definite abnormality noted. D irectly lateral to the reddened area there is a complex fluid collection measuring 2.6 x 0.5 x 4.9 cm . Fluid collection is elongated with septa. IMPRESSION: As above. Septated fairly thin-walled fluid collection redemonstrated diminished in size from prior study suggesting resolving seroma, other etiologies such as abscess not entirely excluded , appears separate from the area of pain and swelling favoring resolving seroma and adjacent skin inf ection/cellulitis.
--- NOTE | 2019-11-22 10:28 | P.GSHP ---
History of Present Illness H&P Date: 11/22/19 Chief Complaint: Cellulitis left chest wall Cora is a 64-year-old white female who approximately June 2017 underwent a left breast lumpectomy and radiation therapy for a stage IA breast cancer. She developed chronic pain and subsequently in May 2018 underwent a bilateral mastectomy. This decreased the pain but she continued to have some discomfort in the chest wall site. She was doing well until several weeks ago when she developed a cellulitis of the left chest wall area. At that time a seroma was noted and interventional radiology placed a drainage tube. Cultures came back negative of this fluid. She received IV antibiotic therapy and was discharged home on oral antibiotics, Keflex 500 3 times a day for 10 days. She presented to the office with some increased erythema of the medial aspect of the left chest wall. She was seen in the emergency department and admitted for IV antibiotic therapy. She was started on Unasyn and vancomycin in the emergency room. An ultrasound of the area was performed which revealed no definite abnormality noted over the directly reddened area. There was a complex fluid collection measuring 2.6 x 0.5 x 4.9 cm elongated with septi in the lateral aspect of the chest wall. The feeling is that this may be a resolving seroma versus possible abscess. Family history: 1. Maternal aunt breast cancer 2. Second maternally ovarian cancer 3. 2 paternal aunts breast cancer Hormonal history: Menarche: 10 , breast fed negative, age of first 15 Menopause: 55 control pills: 20 years Hormones: Patient on anastrozole Surgical history: 1. 2 plication 2. 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 Asthma Depression Review of systems: General: Chills HEENT: Negative Lungs: Asthma Cardiovascular: Negative GI: Negative : Negative Musculoskeletal: Osteoarthritis/restless leg Hematologic: Negative Psychiatric: Depression Neurologic: Restless leg Endocrine: Negative - Constitutional Constitutional: Reports chills - EENT Eyes: denies blurred vision, denies pain Ears: deny: decreased hearing, tinnitus Ears, nose, mouth and throat: Denies headache, Denies sore throat - Breasts Breasts: bilateral: as per HPI - Cardiovascular Cardiovascular: Denies chest pain, Denies shortness of breath - Respiratory Comment: asthma Respiratory: Denies cough, Denies 7 - Gastrointestinal Gastrointestinal: Denies abdominal pain, Denies diarrhea, Denies nausea, Denies vomiting - Genitourinary (Female) Genitourinary: Denies dysuria, Denies hematuria - Menstruation Menstruation: Reports postmenopausal - Musculoskeletal Comment: osteoarthritis - Integumentary Integumentary: Reports as per HPI - Neurological Comment: restless leg syndrome Neurological: Denies numbness, Denies weakness - Psychiatric Psychiatric: Reports depression - Endocrine Endocrine: Denies fatigue, Denies weight change - Hematologic/Lymphatic Comment: none - Allergic/Immunologic Allergic/Immunologic: Reports as per HPI Past Medical History Past Medical History: Asthma, Cancer Additional Past Medical History / Comment(s): restless leg syndrome, left breast cancer-had 23 radiation tx-last Aug 2017 History of Any Multi-Drug Resistant Organisms: None Reported Past Surgical History: Breast Surgery, Tubal Ligation Additional Past Surgical History / Comment(s): left breast lumpectomy 2017, double mastectomy 2017 Past Anesthesia/Blood Transfusion Reactions: No Reported Reaction Past Psychological History: Depression Smoking Status: Never smoker Past Alcohol Use History: None Reported Past Drug Use History: None Reported - Past Family History Mother Family Medical History: No Reported History Additional Family Medical History / Comment(s): 3 AUNTS WITH HX OF BREAST CANCER Father Family Medical History: Hypertension Medications and Allergies Home Medications Medication Instructions Recorded Confirmed Type Anastrozole [Arimidex] 1 mg PO DAILY 06/04/18 11/21/19 History Cholecalciferol [Vitamin D3 (25 2,000 unit PO DAILY 06/04/18 11/21/19 History Mcg = 1000 Iu)] rOPINIRole HCL [Requip] 0.5 mg PO HS #30 tablet 06/13/18 11/21/19 Rx Albuterol Sulfate [Albuterol 2 puff INHALATION RT-BID PRN 11/03/19 11/21/19 History Sulfate Hfa] Montelukast [Singulair] 10 mg PO DAILY 11/03/19 11/21/19 History Sertraline [Zoloft] 50 mg PO DAILY 11/03/19 11/21/19 History traMADol HCl [Ultram] 50 mg PO DAILY PRN 11/03/19 11/21/19 History Cephalexin [Keflex] 500 mg PO Q6HR #40 cap 11/08/19 11/21/19 Rx Sertraline [Zoloft] 25 mg PO HS #30 tab 11/08/19 11/21/19 Rx HYDROcodone/APAP 5-325MG [[place] 1 tab PO Q6HR PRN 11/21/19 11/21/19 History 5-325] Nystatin 100,000 Unit/ml Susp 4 ml PO QID 11/21/19 11/21/19 History [Mycostatin Oral Susp] Allergies Allergy/AdvReac Type Severity Reaction Status Date / Time No Known Allergies Allergy Verified 11/21/19 15:44 Surgical - Exam Vital Signs Temp Pulse Resp BP Pulse Ox 97.9 F 79 20 133/79 98 11/21/19 12:56 11/21/19 12:56 11/21/19 12:56 11/21/19 12:56 11/21/19 12:56 BMI 32.6 - General moderate distress - Eyes normal ocular movement - ENT no hearing loss, no congestion - Neck no masses, trachea midline - Respiratory normal respiratory effort, clear to auscultation - Cardiovascular Rhythm: regular Heart Sounds: normal: S1, S2 - Abdomen Abdomen: soft, non tender, no guarding, no rigid, no rebound - Integumentary Erythema medial aspect of left chest wall incision/this is decreased in intensity from yesterday No definite fluctuance noted Radiation changes over the left chest wall - Neurologic no disoriented, no combative - Musculoskeletal Recumbent in bed - Psychiatric oriented to time, oriented to person, oriented to place, speech is normal, memory intact Chest wall evaluation reveals erythema in the medial aspect of the incision over the left chest/the skin changes extending laterally and felt to be due to radiation changes No evidence of infection in the right chest wall Results Ultrasound results reviewed - Labs 11/22/19 07:00 11/22/19 07:00 Abnormal Lab Results - Last 24 Hours (Table) 11/21/19 11/22/19 Range/Units 14:00 07:00 Chloride 108 H 110 H (98-107) mmol/L Carbon Dioxide 20 L (22-30) mmol/L BUN 18 H (7-17) mg/dL Glucose 101 H (74-99) mg/dL Diabetes panel 11/21/19 11/22/19 Range/Units 14:00 07:00 Sodium 139 137 (137-145) mmol/L Potassium 4.2 3.8 (3.5-5.1) mmol/L Chloride 108 H 110 H (98-107) mmol/L Carbon Dioxide 22 20 L (22-30) mmol/L BUN 18 H 14 (7-17) mg/dL Creatinine 0.60 0.57 (0.52-1.04) mg/dL Glucose 93 101 H (74-99) mg/dL Calcium 9.8 8.9 (8.4-10.2) mg/dL AST 32 (14-36) U/L ALT 22 (4-34) U/L Alkaline Phosphatase 76 (38-126) U/L Total Protein 7.2 (6.3-8.2) g/dL Albumin 4.3 (3.5-5.0) g/dL Calcium panel 11/21/19 11/22/19 Range/Units 14: 07:00 Calcium 9.8 8.9 (8.4-10.2) mg/dL Albumin 4.3 (3.5-5.0) g/dL Pituitary panel 11/21/19 11/22/19 Range/Units 14:00 07:00 Sodium 139 137 (137-145) mmol/L Potassium 4.2 3.8 (3.5-5.1) mmol/L Chloride 108 H 110 H (98-107) mmol/L Carbon Dioxide 22 20 L (22-30) mmol/L BUN 18 H 14 (7-17) mg/dL Creatinine 0.60 0.57 (0.52-1.04) mg/dL Glucose 93 101 H (74-99) mg/dL Calcium 9.8 8.9 (8.4-10.2) mg/dL Adrenal panel 11/21/19 11/22/19 Range/Units 14:00 07:00 Sodium 139 137 (137-145) mmol/L Potassium 4.2 3.8 (3.5-5.1) mmol/L Chloride 108 H 110 H (98-107) mmol/L Carbon Dioxide 22 20 L (22-30) mmol/L BUN 18 H 14 (7-17) mg/dL Creatinine 0.60 0.57 (0.52-1.04) mg/dL Glucose 93 101 H (74-99) mg/dL Calcium 9.8 8.9 (8.4-10.2) mg/dL Total Bilirubin 0.6 (0.2-1.3) mg/dL AST 32 (14-36) U/L ALT 22 (4-34) U/L Alkaline Phosphatase 76 (38-126) U/L Total Protein 7.2 (6.3-8.2) g/dL Albumin 4.3 (3.5-5.0) g/dL Assessment and Plan Assessment: Impression: Cellulitis medial aspect of left chest wall mastectomy site 2. Ultrasound with fluid collection lateral aspect of chest wall resolving seroma versus abscess 3. Depression 4. Asthma 5. Restless leg syndrome 6. Osteoarthritis 7. BMI 32.6/obesity 8. At this time the patient is afebrile and her white count is 5.6 Plan: 1. IV vancomycin as per infectious disease 2. Consider interventional radiology to obtain fluid for cytology/drain fluid 3. Case discussed with Dr. Jocelin Cha who is covering in my absence Thank you for this consultation
--- NOTE | 2019-11-22 17:12 | P.PN ---
Progress Note - Text Progress Note Date: 11/22/19 Chief Complaint: Left breast surgical site pain History of presenting complaint: This is a very pleasant [address] Jose Miguel Mathews. About 2 years ago patient underwent left mastectomy. Patient was here on November 03, with infection of the mastectomy site. Cultures from infected site were negative. Patient was then seen by Dr. Shah from [place]. Patient was sent home on Keflex for 10 days. Patient went home on November 08. Patient now presents with 2 days of increased redness tenderness chills at the site on the left mastectomy bedside. Her nausea. Started on Unasyn and vancomycin the ER. Chronic stable medical conditions include osteoarthritis, restless leg syndrome, asthma, depression. Admitted with recurrent cellulitis and inflammation at the left mastectomy site. Today-cellulitis is improving. Some tenderness along the left lateral wall. No fever or chills. Tolerating a diet. Review of systems: Was done for constitutional, cardiovascular, GI, pulmonary. relevant finding as above Active Medications Hydrocodone Bitart/Acetaminophen ([place] 5-325) 1 each PO Q6HR PRN PRN Reason: MODERATE Pain Last Admin: 11/21/19 21:36 Dose: 1 each Documented by: Albuterol Sulfate (Ventolin Nebulized) 2.5 mg INHALATION RT-BID PRN PRN Reason: Shortness Of Breath Anastrozole (Arimidex) 1 mg PO DAILY [facility] Last Admin: 11/22/19 08:43 Dose: 1 mg Documented by: Cholecalciferol (Vitamin D3 (25 Mcg = 1000 Iu)) 2,000 unit PO DAILY [facility] Last Admin: 11/22/19 08:42 Dose: 2,000 unit Documented by: Enoxaparin Sodium (Lovenox) 40 mg SQ Q24H [facility] Vancomycin HCl 1,500 mg/ (Sodium Chloride) 250 mls @ 125 mls/hr IVPB Q12H [facility] Last Admin: 11/22/19 14:19 Dose: 125 mls/hr Documented by: Miscellaneous Information (Vancomycin Trough Due) 0 each MISCELLANE DIRECTED ONE Stop: 11/23/19 13:01 Montelukast Sodium (Singulair) 10 mg PO DAILY [facility] Last Admin: 11/22/19 08:42 Dose: 10 mg Documented by: Naloxone HCl (Narcan) 0.2 mg IV Q2M PRN PRN Reason: Opioid Reversal Nystatin (Mycostatin Oral Susp) 400,000 unit PO QID [facility] Stop: 12/01/19 23:00 Last Admin: 11/22/19 14:19 Dose: 400,000 unit Documented by: Ropinirole HCl (Requip) 0.5 mg PO [facility] Last Admin: 11/21/19 21:36 Dose: 0.5 mg Documented by: Sertraline HCl (Zoloft) 25 mg PO [facility] Last Admin: 11/21/19 21:45 Dose: 25 mg Documented by: Sertraline HCl (Zoloft) 50 mg PO DAILY [facility] Last Admin: 11/22/19 08:42 Dose: 50 mg Documented by: Tramadol HCl (Ultram) 50 mg PO DAILY PRN PRN Reason: Pain Last Admin: 11/22/19 12:12 Dose: 50 mg Documented by: Physical examination: VITAL SIGNS: 98.5, 84, 18, 121/73, 94% on room air GENERAL: Sitting up in bed, awake EYES: Pupils equal. Conjunctiva normal. HEENT: External appearance of nose and ears normal, oral cavity grossly normal. NECK: JVD not raised; masses not palpable. HEART: First and second heart sounds are normal; no edema. LUNGS: Respiratory rate normal; clear to auscultation CHEST wall: Redness along the incision site in the left breast area going down to the axilla with areas of tenderness. Area has been marked with a skin pencil...-Improved today ABDOMEN: Soft, nontender, liver spleen not palpable, no masses palpable. PSYCH: Alert and oriented x3; mood and affect normal. INVESTIGATIONS, reviewed in the clinical context: White count 5.6 potassium 3.8 creatinine 0.57 Previous testing White count 7.3 hemoglobin 14 potassium 4.2 creatinine 0.60 Assessment: -Acute cellulitis and a prior mastectomy site with a recent infection of the same side. Cultures of the last admission were negative. -Clinically improving -Depression otherwise specified -Intermittent asthma -Restless leg syndrome -Primary osteoarthritis -Obesity BMI 32.6 Plan: Discussed with Dr. Madyson cerrato. And the patient. Clinically improving. Continue with antibiotics. Await ID input. Warm compress to the lateral chest wall to be added. We will add naproxen [id number] for anti-inflammatory effect.
[2019-11-22] MEDS: NAPROXEN 250 MG TAB PO SCH ×2 (18:10→21:14)
[2019-11-22] MEDS: ENOXAPARIN 40 MG/0.4 ML SYRINGE SQ SCH (20:20)
[2019-11-22] MEDS: SERTRALINE 25 MG TAB PO SCH (20:20)
[2019-11-22] MEDS: ALBUTEROL NEBULIZED 2.5 MG/3 ML INHALATION PRN (20:24)
[2019-11-23 07:12] LABS: Basophils % (A) 1 %; Eosinophils # (A) 0.3 k/uL (0-0.7); Eosinophils % (A) 4 %; HCT 39.7 % (34.0-46.0); HGB 13.2 gm/dL (11.4-16.0); Lymphocytes # (A) 2.2 k/uL (1.0-4.8); Lymphocytes % (A) 35 %; MCH 31.8 pg (25.0-35.0); MCHC 33.2 g/dL (31.0-37.0); MCV 95.8 fL (80.0-100.0); Mean Platelet Volume 7.3; Monocytes # (A) 0.5 k/uL (0-1.0); Monocytes % (A) 8 %; Neutrophils # (A) 3.2 k/uL (1.3-7.7); Neutrophils % (A) 50 %; Platelet Count 289 k/uL (150-450); RBC 4.14 m/uL (3.80-5.40); RDW 12.5 % (11.5-15.5); WBC 6.3 k/uL (3.8-10.6)
[2019-11-23 07:32] LABS: African American GFR (CKD) >90 (>60 ml/min/1.73 sqM); Anion Gap 8 mmol/L; Blood Urea Nitrogen 17 mg/dL (7-17); C Reactive Protein 18.4 mg/L (<10.0); Calcium 9.4 mg/dL (8.4-10.2); Carbon Dioxide 23 mmol/L (22-30); Chloride 106 mmol/L (98-107); Glucose 105 mg/dL (74-99); Non-African American GFR(CKD) >90 (>60 ml/min/1.73 sqM); Potassium 4.3 mmol/L (3.5-5.1); Sodium 137 mmol/L (137-145)
[2019-11-23] MEDS: CHOLECALCIFEROL 1,000 UNIT TAB PO SCH (07:33)
[2019-11-23] MEDS: ANASTROZOLE 1 MG TAB PO SCH (07:33)
[2019-11-23] MEDS: SERTRALINE 50 MG TAB PO SCH (07:34)
[2019-11-23] MEDS: MONTELUKAST 10 MG TAB PO SCH (07:34)
[2019-11-23] MEDS: NAPROXEN 250 MG TAB PO SCH ×3 (07:34→22:03)
[2019-11-23] MEDS: NYSTATIN 100,000 UNIT/ML SUSP 500,000 UNIT/5 ML CUP PO SCH ×4 (07:34→20:54)
[2019-11-23] MEDS: ALBUTEROL NEBULIZED 2.5 MG/3 ML INHALATION PRN ×2 (09:01→16:26)
--- NOTE | 2019-11-23 09:09 | PN ---
PROGRESS NOTE DATE OF SERVICE: 11/22/2019 REASON FOR FOLLOWUP: Left chest wall cellulitis and question of abscess. INTERVAL HISTORY: The patient is currently afebrile. Patient has been breathing comfortably. The patient denies having any chest pain, shortness of breath or cough. The left chest wall still has some redness but denies having any worsening pain. EXAMINATION: Vital signs are stable with a T-max of 98. General description is an elderly female lying in bed in no distress. Respiratory system: Unlabored breathing, clear to auscultation anteriorly. Heart S1, S2. Regular rate and rhythm. Abdomen soft, no tenderness. Left chest wall still has erythema and slightly warm to touch. DIAGNOSTIC IMPRESSION AND PLAN: Patient with left chest wall/mastectomy site cellulitis. Ultrasound has been suspicious for multiloculated fluid with question of seroma. Multiloculation is concerning as it points towards inadequate drainage of her previous infected seroma. Will discuss further with surgery regarding possible open drainage. Antibiotic adjusted to cefazolin and monitor her clinical course. MMODL / IJN: [id number] /
[2019-11-23 09:27] LABS: Erythrocyte Sedimentation Rate 18 mm/hr (0-20)
--- NOTE | 2019-11-23 12:12 | P.PN ---
Subjective Progress Note Date: 11/23/19 CHIEF COMPLAINT: Cellulitis of the breast PRESENT ILLNESS: The patient is a 64-year-old female with history of breast cancer who was admitted secondary to cellulitis of the breast mastectomy site along the left side. She reports feeling the same as yesterday. No documented fevers. Pain is controlled. Her is at bedside. ROS: No reports of nausea and vomiting. No bowel movements. No fevers or chills. No new chest pain. No productive sputum PHYSICAL EXAM: VITAL SIGNS: Reviewed CONSTITUTIONAL: Well developed and in no acute distress. EYES: Conjuctivae without sclera icterus. Extraocular movements grossly intact. HEAD, EARS, NOSE, THROAT: Moist buccal mucosa. Head is atraumatic, normocephalic. Hears conversational speech. No nasal drainage. NECK: Supple. No thyroidomegaly. RESPIRATORY: Non-labored respirations and equal bilateral excursions. BREAST: Erythema has improved from marking 2 cm along the left chest wall/mastectomy site. CARDIOVASCULAR: Palpable 2+ radial pulses. Regular rate. Regular rhythm. ABDOMEN: Soft. Nontender. MUSCULOSKELETAL: No gross deformity of the lower extremities noted. No clubbing. No cyanosis. SKIN: Good skin turgor. Well perfused. NEUROLOGIC: Cranial nerves I through XII grossly intact. No focal or lateralizing signs. PSYCH: Appropriate affect. Alert and oriented to person, place and time. CLINICAL LABS: White blood cell count normal ASSESSMENT: 1. Cellulitis of the breast, left mastectomy site PLAN: 1. Continue IV antibiotics 2. No surgical intervention at this time. Objective - Vital Signs Vital signs: Vital Signs Temp 98.4 F 11/23/19 07:33 Pulse 82 11/23/19 09:11 Resp 17 11/23/19 07:33 BP 116/73 11/23/19 07:33 Pulse Ox 94 L 11/23/19 07:33 Intake & Output 11/22/19 11/23/19 11/23/19 17:59 06:59 18:59 Intake Total 630 Balance 630 Intake: Intake, IV Titration 50 Amount ceFAZolin 2 gm In Sodium 50 Chloride 0.9% 50 ml @ 100 mls/hr IVPB Q8HR [facility] Rx# :[id number] Oral 580 Other: Voiding Method Toilet # Voids 1 - Labs CBC & Chem 7: 11/23/19 06:25 11/23/19 06:25 Labs: Abnormal Lab Results - Last 24 Hours (Table) 11/23/19 Range/Units 06:25 Glucose 105 H (74-99) mg/dL C-Reactive Protein 18.4 H (<10.0) mg/L Microbiology - Last 24 Hours (Table) 11/21/19 14:00 Blood Culture - Preliminary Blood No Growth after 24 hours Assessment and Plan (1) Cellulitis of left breast Current Visit: Yes Status: Acute Priority: High Code(s): N61.0 - MASTITIS WITHOUT ABSCESS SNOMED Code(s): 96378723 (2) Abscess or cellulitis of chest wall Current Visit: No Status: Acute Code(s): BII1900 - SNOMED Code(s): 825945654
[2019-11-23] MEDS ORDERED: VANCOMYCIN TROUGH DUE 1 EACH MISC MISCELLANE ONE (13:00)
[2019-11-23] MEDS: ENOXAPARIN 40 MG/0.4 ML SYRINGE SQ SCH (20:53)
[2019-11-23] MEDS: SERTRALINE 25 MG TAB PO SCH (20:54)
--- NOTE | 2019-11-23 21:55 | P.PN ---
Progress Note - Text Progress Note Date: 11/23/19 Chief Complaint: Left breast surgical site pain History of presenting complaint: This is a very pleasant [address] Jose Miguel Mathews. About 2 years ago patient underwent left mastectomy. Patient was here on November 03, with infection of the mastectomy site. Cultures from infected site were negative. Patient was then seen by Dr. Shah from [place]. Patient was sent home on Keflex for 10 days. Patient went home on November 08. Patient now presents with 2 days of increased redness tenderness chills at the site on the left mastectomy bedside. Her nausea. Started on Unasyn and vancomycin the ER. Chronic stable medical conditions include osteoarthritis, restless leg syndrome, asthma, depression. Admitted with recurrent cellulitis and inflammation at the left mastectomy site. . Today- Continues to improve. Less pain. No fever no chills.. Review of systems: Was done for constitutional, cardiovascular, GI, pulmonary. relevant finding as above Active Medications Hydrocodone Bitart/Acetaminophen ([place] 5-325) 1 each PO Q6HR PRN PRN Reason: MODERATE Pain Last Admin: 11/21/19 21:36 Dose: 1 each Documented by: Albuterol Sulfate (Ventolin Nebulized) 2.5 mg INHALATION RT-BID PRN PRN Reason: Shortness Of Breath Last Admin: 11/23/19 16:26 Dose: 2.5 mg Documented by: Anastrozole (Arimidex) 1 mg PO DAILY [facility] Last Admin: 11/23/19 07:33 Dose: 1 mg Documented by: Cholecalciferol (Vitamin D3 (25 Mcg = 1000 Iu)) 2,000 unit PO DAILY [facility] Last Admin: 11/23/19 07:33 Dose: 2,000 unit Documented by: Enoxaparin Sodium (Lovenox) 40 mg SQ Q24H [facility] Last Admin: 11/23/19 20:53 Dose: 40 mg Documented by: Cefazolin Sodium 2 gm/ Sodium (Chloride) 50 mls @ 100 mls/hr IVPB Q8HR [facility] Last Admin: 11/23/19 17:00 Dose: 100 mls/hr Documented by: Montelukast Sodium (Singulair) 10 mg PO DAILY [facility] Last Admin: 11/23/19 07:34 Dose: 10 mg Documented by: Naloxone HCl (Narcan) 0.2 mg IV Q2M PRN PRN Reason: Opioid Reversal Naproxen (Naprosyn) 250 mg PO TID [facility] Last Admin: 11/23/19 17:00 Dose: 250 mg Documented by: Nystatin (Mycostatin Oral Susp) 400,000 unit PO QID [facility] Stop: 12/01/19 23:00 Last Admin: 11/23/19 20:54 Dose: 400,000 unit Documented by: Ropinirole HCl (Requip) 0.5 mg PO HS [facility] Last Admin: 11/23/19 20:54 Dose: 0.5 mg Documented by: Sertraline HCl (Zoloft) 25 mg PO HS [facility] Last Admin: 11/23/19 20:54 Dose: 25 mg Documented by: Sertraline HCl (Zoloft) 50 mg PO DAILY [facility] Last Admin: 11/23/19 07:34 Dose: 50 mg Documented by: Tramadol HCl (Ultram) 50 mg PO DAILY PRN PRN Reason: Pain Last Admin: 11/22/19 12:12 Dose: 50 mg Documented by: Physical examination: VITAL SIGNS: 98.5, 75, 18, 11 4/66, 92% on room air GENERAL: Comfortable, in bed EYES: Pupils equal. Conjunctiva normal. HEENT: External appearance of nose and ears normal, oral cavity grossly normal. NECK: JVD not raised; masses not palpable. HEART: First and second heart sounds are normal; no edema. LUNGS: Respiratory rate normal; clear to auscultation CHEST wall: Redness along the incision site in the left breast area going down to the axilla with areas of tenderness. Area has been marked with a skin pencil...-Continues to improve ABDOMEN: Soft, nontender, liver spleen not palpable, no masses palpable. PSYCH: Alert and oriented x3; mood and affect normal. INVESTIGATIONS, reviewed in the clinical context: White count 6.3, hemoglobin 13.2, creatinine 0.56 Previous testing White count 7.3 hemoglobin 14 potassium 4.2 creatinine 0.60 Assessment: -Acute cellulitis and a prior mastectomy site with a recent infection of the same side. Cultures of the last admission were negative.-Continues to improve -Depression otherwise specified -Intermittent asthma -Restless leg syndrome -Primary osteoarthritis -Obesity BMI 32.6 Plan: Discussed with the patient . Continue with warm compresses. Antibiotics and anti-inflammatory. We'll the patient to lie in the right side. Patient also to use a sports propped. Which she has at home. Hopefully discharge tomorrow.
--- NOTE | 2019-11-24 07:10 | PN ---
PROGRESS NOTE DATE OF SERVICE: 11/23/2019 REASON FOR FOLLOWUP: Left chest wall cellulitis. INTERVAL HISTORY: The patient is currently afebrile. She is breathing comfortably. The left chest wall swelling and redness have slightly decreased. No nausea, no vomiting. No abdominal pain or diarrhea. PHYSICAL EXAMINATION: blood pressure 123/70 with a pulse of 79, temperature 98.2, she is 93% on room air. General description is an elderly female, lying in bed in no distress. RESPIRATORY SYSTEM: Unlabored breathing, clear to auscultation. HEART: S1, S2. Regular rate and rhythm. ABDOMEN: Soft, no tenderness. The left chest wall swelling and redness have slightly decreased. DIAGNOSTIC IMPRESSION AND PLAN: Patient with left chest wall cellulitis in this patient who did have a CT-guided aspirate last admission. Those cultures were negative. Improvement on Keflex but did have recurrent cough, switching antibiotic we will discuss with the telephonic nurse case manager. If outpatient antibiotic will be needed for this patient, elevated response will continue and continue supportive care. MMODL / IJN: [id number] /
[2019-11-24] MEDS: ALBUTEROL NEBULIZED 2.5 MG/3 ML INHALATION PRN (09:31)
[2019-11-24] MEDS: MONTELUKAST 10 MG TAB PO SCH (09:51)
[2019-11-24] MEDS: SERTRALINE 50 MG TAB PO SCH (09:51)
[2019-11-24] MEDS: ANASTROZOLE 1 MG TAB PO SCH (09:51)
[2019-11-24] MEDS: CHOLECALCIFEROL 1,000 UNIT TAB PO SCH (09:51)
[2019-11-24] MEDS: NAPROXEN 250 MG TAB PO SCH ×3 (09:51→22:20)
[2019-11-24] MEDS: NYSTATIN 100,000 UNIT/ML SUSP 500,000 UNIT/5 ML CUP PO SCH ×4 (09:52→22:21)
--- NOTE | 2019-11-24 11:00 | P.PN ---
<Kaley Stevenson A - Last Filed: 11/24/19 10:58> Subjective Progress Note Date: 11/24/19 CHIEF COMPLAINT: Cellulitis of the breast PRESENT ILLNESS: Patient examined this morning at the bedside. She reports feeli ng about the same as yesterday. Pain is tolerable of the left chest wall. Tolerating diet. Vital signs stable. PHYSICAL EXAM: VITAL SIGNS: Reviewed CONSTITUTIONAL: Well developed and in no acute distress. EYES: Conjuctivae without sclera icterus. Extraocular movements grossly intact. HEAD, EARS, NOSE, THROAT: Moist buccal mucosa. Head is atraumatic, normocephalic. Hears conversational speech. No nasal drainage. NECK: Supple. No thyroidomegaly. RESPIRATORY: Non-labored respirations and equal bilateral excursions. BREAST: Improved erythema from original markings. No drainage noted. Temperature normal. Mild tenderness. CARDIOVASCULAR: Palpable 2+ radial pulses. Regular rate. Regular rhythm. ABDOMEN: Soft. Nontender. Nondistended. MUSCULOSKELETAL: No gross deformity of the lower extremities noted. No clubbing. No cyanosis. SKIN: Good skin turgor. Well perfused. NEUROLOGIC: Cranial nerves I through XII grossly intact. No focal or lateralizing signs. PSYCH: Appropriate affect. Alert and oriented to person, place and time. ASSESSMENT: 1. Cellulitis of the breast, left mastectomy site PLAN: 1. Continue IV antibiotics 2. No surgical intervention at this time. 3. Discharge per medicine Nurse practitioner note has been reviewed by physician. Signing provider agrees with the documented findings, assessment, and plan of care. Objective - Vital Signs Vital signs: Vital Signs Temp 98.3 F 11/24/19 07:14 Pulse 84 11/24/19 09:43 Resp 18 11/24/19 07:14 BP 135/74 11/24/19 07:14 Pulse Ox 95 11/24/19 07:14 Intake & Output 11/23/19 11/24/19 11/24/19 18:59 06:59 18:59 Intake Total 630 125 680 Balance 630 125 680 Intake: Intake, IV Titration 50 125 Amount Vancomycin 1,500 mg In 125 Sodium Chloride 0.9% 250 ml @ 125 mls/hr IVPB Q12H [facility] Rx#:[id number] ceFAZolin 2 gm In Sodium 50 Chloride 0.9% 50 ml @ 100 mls/hr IVPB Q8HR [facility] Rx# :[id number] Oral 580 680 Other: Voiding Method Toilet Toilet Toilet # Voids 1 2 1 - Labs CBC & Chem 7: 11/23/19 06:25 11/23/19 06:25 Labs: Microbiology - Last 24 Hours (Table) 11/21/19 14:00 Blood Culture - Preliminary Blood No Growth after 48 hours <Jocelin Cha N - Last Filed: 11/24/19 21:37> Subjective Midline placed for IV antibiotics. At this time cellulitis moderately resolved since admission. Antibiotic management per infectious disease. No acute general surgical intervention. Clear for discharge from surgery when medically stable Objective - Vital Signs Vital signs: Vital Signs Temp 98.2 F 11/24/19 15:00 Pulse 85 11/24/19 15:00 Resp 16 11/24/19 15:00 BP 161/74 11/24/19 15:00 Pulse Ox 97 11/24/19 15:00 Intake & Output 11/24/19 11/24/19 11/25/19 06:59 18:59 06:59 Intake Total 125 880 Balance 125 880 Intake: Intake, IV Titration 125 Amount Vancomycin 1,500 mg In 125 Sodium Chloride 0.9% 250 ml @ 125 mls/hr IVPB Q12H [facility] Rx#:[id number] Oral 880 Other: Voiding Method Toilet Toilet # Voids 2 1 - Labs CBC & Chem 7: 11/23/19 06:25 11/23/19 06:25 Labs: Microbiology - Last 24 Hours (Table) 11/21/19 14:00 Blood Culture - Preliminary Blood No Growth after 72 hours Assessment and Plan (1) Cellulitis of left breast Current Visit: Yes Status: Acute Priority: High Code(s): N61.0 - MASTITIS WITHOUT ABSCESS SNOMED Code(s): 28672797 (2) Abscess or cellulitis of chest wall Current Visit: No Status: Acute Code(s): KXM5737 - SNOMED Code(s): 959061006
--- NOTE | 2019-11-24 17:31 | P.PN ---
Progress Note - Text Progress Note Date: 11/24/19 Chief Complaint: Left breast surgical site pain History of presenting complaint: This is a very pleasant [address] Jose Miguel Mathews. About 2 years ago patient underwent left mastectomy. Patient was here on November 03, with infection of the mastectomy site. Cultures from infected site were negative. Patient was then seen by Dr. Shah from [place]. Patient was sent home on Keflex for 10 days. Patient went home on November 08. Patient now presents with 2 days of increased redness tenderness chills at the site on the left mastectomy bedside. Her nausea. Started on Unasyn and vancomycin the ER. Chronic stable medical conditions include osteoarthritis, restless leg syndrome, asthma, depression. Admitted with recurrent cellulitis and inflammation at the left mastectomy site. Today-. Slowly improving. Pain improving. No fever no chills. Tolerating a diet Review of systems: Was done for constitutional, cardiovascular, GI, pulmonary. relevant finding as above Active Medications Hydrocodone Bitart/Acetaminophen ([place] 5-325) 1 each PO Q6HR PRN PRN Reason: MODERATE Pain Last Admin: 11/21/19 21:36 Dose: 1 each Documented by: Albuterol Sulfate (Ventolin Nebulized) 2.5 mg INHALATION RT-BID PRN PRN Reason: Shortness Of Breath Last Admin: 11/24/19 09:31 Dose: 2.5 mg Documented by: Anastrozole (Arimidex) 1 mg PO DAILY [facility] Last Admin: 11/24/19 09:51 Dose: 1 mg Documented by: Cholecalciferol (Vitamin D3 (25 Mcg = 1000 Iu)) 2,000 unit PO DAILY [facility] Last Admin: 11/24/19 09:51 Dose: 2,000 unit Documented by: Enoxaparin Sodium (Lovenox) 40 mg SQ Q24H [facility] Last Admin: 11/23/19 20:53 Dose: 40 mg Documented by: Cefazolin Sodium 2 gm/ Sodium (Chloride) 50 mls @ 100 mls/hr IVPB Q8HR [facility] Last Admin: 11/24/19 16:12 Dose: 100 mls/hr Documented by: Montelukast Sodium (Singulair) 10 mg PO DAILY [facility] Last Admin: 11/24/19 09:51 Dose: 10 mg Documented by: Naloxone HCl (Narcan) 0.2 mg IV Q2M PRN PRN Reason: Opioid Reversal Naproxen (Naprosyn) 250 mg PO TID [facility] Last Admin: 11/24/19 16:11 Dose: 250 mg Documented by: Nystatin (Mycostatin Oral Susp) 400,000 unit PO QID [facility] Stop: 12/01/19 23:00 Last Admin: 11/24/19 16:12 Dose: 400,000 unit Documented by: Ropinirole HCl (Requip) 0.5 mg PO HS [facility] Last Admin: 11/23/19 20:54 Dose: 0.5 mg Documented by: Sertraline HCl (Zoloft) 25 mg PO HS [facility] Last Admin: 11/23/19 20:54 Dose: 25 mg Documented by: Sertraline HCl (Zoloft) 50 mg PO DAILY [facility] Last Admin: 11/24/19 09:51 Dose: 50 mg Documented by: Tramadol HCl (Ultram) 50 mg PO DAILY PRN PRN Reason: Pain Last Admin: 11/22/19 12:12 Dose: 50 mg Documented by: Physical examination: VITAL SIGNS: 98.3, 73, 18, blood pressure 135/74, 95% on room air GENERAL: Sitting up, comfortable EYES: Pupils equal. Conjunctiva normal. HEENT: External appearance of nose and ears normal, oral cavity grossly normal. NECK: JVD not raised; masses not palpable. HEART: First and second heart sounds are normal; no edema. LUNGS: Respiratory rate normal; clear to auscultation CHEST wall: Redness along the incision site in the left breast area going down to the axilla with areas of tenderness. Area has been marked with a skin pencil...-Continues to improve ABDOMEN: Soft, nontender, liver spleen not palpable, no masses palpable. PSYCH: Alert and oriented x3; mood and affect normal. INVESTIGATIONS, reviewed in the clinical context: White count 6.3, hemoglobin 13.2, creatinine 0.56 Previous testing White count 7.3 hemoglobin 14 potassium 4.2 creatinine 0.60 Assessment: -Acute cellulitis and a prior mastectomy site with a recent infection of the same side. Cultures of the last admission were negative.-Continues to improve -Depression otherwise specified -Intermittent asthma -Restless leg syndrome -Primary osteoarthritis -Obesity BMI 32.6 Plan: Discussed with Dr. Strauss from [place]. For a midline and IV Ancef to be discharged. manager residential working on the same. Discussed with patient.
[2019-11-24] MEDS: ENOXAPARIN 40 MG/0.4 ML SYRINGE SQ SCH (22:20)
[2019-11-24] MEDS: SERTRALINE 25 MG TAB PO SCH (22:21)
[2019-11-25] MEDS: MONTELUKAST 10 MG TAB PO SCH (08:12)
[2019-11-25] MEDS: NAPROXEN 250 MG TAB PO SCH ×3 (08:12→21:03)
[2019-11-25] MEDS: CHOLECALCIFEROL 1,000 UNIT TAB PO SCH (08:12)
[2019-11-25] MEDS: SERTRALINE 50 MG TAB PO SCH (08:12)
[2019-11-25] MEDS: ANASTROZOLE 1 MG TAB PO SCH (08:13)
[2019-11-25] MEDS: NYSTATIN 100,000 UNIT/ML SUSP 500,000 UNIT/5 ML CUP PO SCH ×4 (08:13→21:03)
--- NOTE | 2019-11-25 13:39 | P.PN ---
<Kaley Stevenson A - Last Filed: 11/25/19 13:38> Subjective Progress Note Date: 11/25/19 CHIEF COMPLAINT: Cellulitis of the breast PRESENT ILLNESS: Patient examined this morning at the bedside. Pain is tolerabl e of the left chest wall. Tolerating diet. Vital signs stable. PHYSICAL EXAM: VITAL SIGNS: Reviewed CONSTITUTIONAL: Well developed and in no acute distress. EYES: Conjuctivae without sclera icterus. Extraocular movements grossly intact. HEAD, EARS, NOSE, THROAT: Moist buccal mucosa. Head is atraumatic, normocephalic. Hears conversational speech. No nasal drainage. NECK: Supple. No thyroidomegaly. RESPIRATORY: Non-labored respirations and equal bilateral excursions. BREAST: Improved erythema from original markings. No drainage noted. Temperature normal. Mild tenderness. CARDIOVASCULAR: Palpable 2+ radial pulses. Regular rate. Regular rhythm. ABDOMEN: Soft. Nontender. Nondistended. MUSCULOSKELETAL: No gross deformity of the lower extremities noted. No clubbing. No cyanosis. SKIN: Good skin turgor. Well perfused. NEUROLOGIC: Cranial nerves I through XII grossly intact. No focal or lateralizing signs. PSYCH: Appropriate affect. Alert and oriented to person, place and time. ASSESSMENT: 1. Cellulitis of the breast, left mastectomy site PLAN: 1. Continue IV antibiotics 2. No surgical intervention at this time. 3. Discharge per medicine 4. Patient to follow up with Dr. Ceferino Gordon post discharge Nurse practitioner note has been reviewed by physician. Signing provider agrees with the documented findings, assessment, and plan of care. Objective - Vital Signs Vital signs: Vital Signs Temp 98.5 F 11/25/19 07:10 Pulse 70 11/25/19 07:10 Resp 16 11/25/19 07:10 BP 143/74 11/25/19 07:10 Pulse Ox 94 L 11/25/19 07:10 Intake & Output 11/24/19 11/25/19 11/25/19 18:59 06:59 18:59 Intake Total 880 1000 200 Balance 880 1000 200 Intake: Oral 880 1000 200 Other: Voiding Method Toilet # Voids 1 1 - Labs CBC & Chem 7: 11/23/19 06:25 11/23/19 06:25 Labs: Microbiology - Last 24 Hours (Table) 11/21/19 14:00 Blood Culture - Preliminary Blood No Growth after 72 hours <Jocelin Cha - Last Filed: 11/26/19 19:41> Subjective As above. No additional surgical intervention. Continue antibiotics after discharge. Objective - Vital Signs Vital signs: Vital Signs Temp 98.4 F 11/26/19 07:00 Pulse 73 11/26/19 07:00 Resp 16 11/26/19 07:00 BP 146/69 11/26/19 07:00 Pulse Ox 94 L 11/26/19 07:00 Intake & Output 11/26/19 11/26/19 11/27/19 06:59 18:59 06:59 Other: Voiding Method Toilet # Voids 1 - Labs CBC & Chem 7: 11/23/19 06:25 11/23/19 06:25 Labs: Microbiology - Last 24 Hours (Table) 11/21/19 14:00 Blood Culture - Preliminary Blood No Growth after 120 hours Assessment and Plan (1) Cellulitis of left breast Status: Acute Priority: High Code(s): N61.0 - MASTITIS WITHOUT ABSCESS SNOMED Code(s): 11357469 (2) Abscess or cellulitis of chest wall Status: Acute Code(s): [id number] - SNOMED Code(s): 133564645
--- NOTE | 2019-11-25 15:50 | PN ---
PROGRESS NOTE DATE OF SERVICE: 11/25/2019 REASON FOR FOLLOWUP: Left mastectomy site cellulitis and possible abscess. INTERVAL HISTORY: The patient is currently afebrile. The patient has been breathing comfortably. The left chest wall swelling and redness have improved. No nausea, no vomiting. No abdominal pain. No diarrhea. PHYSICAL EXAMINATION: Blood pressure 143/74 with a pulse of 70, temperature 98.5. She is 94% on room air. General description is an elderly female lying in bed in no distress. RESPIRATORY SYSTEM: Unlabored breathing. Clear to auscultation anteriorly. HEART: S1, S2. Regular rate and rhythm. ABDOMEN: Soft. No tenderness. Left chest wall swelling and redness have decreased. LABS: No new labs have been obtained. Blood cultures have been negative. DIAGNOSTIC IMPRESSION AND PLAN: Patient with left chest wall abscess and cellulitis. The patient did show overall clinical improvement. She will finish therapy with cefazolin 2 grams q.8 hours for 2 weeks with close outpatient followup. MMODL / IJN: [id number] /
[2019-11-25] MEDS: ALBUTEROL NEBULIZED 2.5 MG/3 ML INHALATION PRN (19:27)
[2019-11-25] MEDS: ENOXAPARIN 40 MG/0.4 ML SYRINGE SQ SCH (21:03)
[2019-11-25] MEDS: SERTRALINE 25 MG TAB PO SCH (21:03)
--- NOTE | 2019-11-25 23:39 | P.PN ---
Progress Note - Text Progress Note Date: 11/25/19 Chief Complaint: Left breast surgical site pain History of presenting complaint: This is a very pleasant [address] Jose Miguel Mathews. About 2 years ago patient underwent left mastectomy. Patient was here on November 03, with infection of the mastectomy site. Cultures from infected site were negative. Patient was then seen by Dr. Shah from [place]. Patient was sent home on Keflex for 10 days. Patient went home on November 08. Patient now presents with 2 days of increased redness tenderness chills at the site on the left mastectomy bedside. Her nausea. Started on Unasyn and vancomycin the ER. Chronic stable medical conditions include osteoarthritis, restless leg syndrome, asthma, depression. Admitted with recurrent cellulitis and inflammation at the left mastectomy site. Today-. That is improved. Pain is getting better. Because of insurance 3 night stay patient cannot go until tomorrow. Review of systems: Was done for constitutional, cardiovascular, GI, pulmonary. relevant finding as above Active Medications Hydrocodone Bitart/Acetaminophen ([place] 5-325) 1 each PO Q6HR PRN PRN Reason: MODERATE Pain Last Admin: 11/21/19 21:36 Dose: 1 each Documented by: Albuterol Sulfate (Ventolin Nebulized) 2.5 mg INHALATION RT-BID PRN PRN Reason: Shortness Of Breath Last Admin: 11/25/19 19:27 Dose: 2.5 mg Documented by: Anastrozole (Arimidex) 1 mg PO DAILY [facility] Last Admin: 11/25/19 08:13 Dose: 1 mg Documented by: Cholecalciferol (Vitamin D3 (25 Mcg = 1000 Iu)) 2,000 unit PO DAILY [facility] Last Admin: 11/25/19 08:12 Dose: 2,000 unit Documented by: Enoxaparin Sodium (Lovenox) 40 mg SQ Q24H [facility] Last Admin: 11/25/19 21:03 Dose: 40 mg Documented by: Cefazolin Sodium 2 gm/ Sodium (Chloride) 50 mls @ 100 mls/hr IVPB Q8HR [facility] Last Admin: 11/25/19 17:16 Dose: 100 mls/hr Documented by: Montelukast Sodium (Singulair) 10 mg PO DAILY [facility] Last Admin: 11/25/19 08:12 Dose: 10 mg Documented by: Naloxone HCl (Narcan) 0.2 mg IV Q2M PRN PRN Reason: Opioid Reversal Naproxen (Naprosyn) 250 mg PO TID [facility] Last Admin: 11/25/19 21:03 Dose: 250 mg Documented by: Nystatin (Mycostatin Oral Susp) 400,000 unit PO QID [facility] Stop: 12/01/19 23:00 Last Admin: 11/25/19 21:03 Dose: 400,000 unit Documented by: Ropinirole HCl (Requip) 0.5 mg PO [facility] Last Admin: 11/25/19 21:03 Dose: 0.5 mg Documented by: Sertraline HCl (Zoloft) 25 mg PO HS [facility] Last Admin: 11/25/19 21:03 Dose: 25 mg Documented by: Sertraline HCl (Zoloft) 50 mg PO DAILY [facility] Last Admin: 11/25/19 08:12 Dose: 50 mg Documented by: Tramadol HCl (Ultram) 50 mg PO DAILY PRN PRN Reason: Pain Last Admin: 11/22/19 12:12 Dose: 50 mg Documented by: Physical examination: VITAL SIGNS: 98.6, 84, 14, blood pressure 132/74, 94% on room air GENERAL: Laying in bed, more comfortable EYES: Pupils equal. Conjunctiva normal. HEENT: External appearance of nose and ears normal, oral cavity grossly normal. NECK: JVD not raised; masses not palpable. HEART: First and second heart sounds are normal; no edema. LUNGS: Respiratory rate normal; clear to auscultation CHEST wall: Redness along the incision site in the left breast area going down to the axilla with areas of tenderness. Area has been marked with a skin penci l...-Continues to improve ABDOMEN: Soft, nontender, liver spleen not palpable, no masses palpable. PSYCH: Alert and oriented x3; mood and affect normal. INVESTIGATIONS, reviewed in the clinical context: Pro calcitonin 0.05 Previous testing White count 7.3 hemoglobin 14 potassium 4.2 creatinine 0.60 Assessment: -Acute cellulitis and a prior mastectomy site with a recent infection of the same side. Cultures of the last admission were negative.-Continues to improve. Pro calcitonin is - 0.05 -Depression otherwise specified -Intermittent asthma -Restless leg syndrome -Primary osteoarthritis -Obesity BMI 32.6 Plan: Patient will be discharged tomorrow when 3 night requirement is back. Care was discussed with the patient.
[2019-11-26 02:39] VITALS: TEMP 98.4
[2019-11-26] MEDS: CHOLECALCIFEROL 1,000 UNIT TAB PO SCH (07:49)
[2019-11-26] MEDS: SERTRALINE 50 MG TAB PO SCH (07:49)
[2019-11-26] MEDS: NYSTATIN 100,000 UNIT/ML SUSP 500,000 UNIT/5 ML CUP PO SCH ×2 (07:50→12:18)
[2019-11-26] MEDS: NAPROXEN 250 MG TAB PO SCH (07:50)
[2019-11-26] MEDS: MONTELUKAST 10 MG TAB PO SCH (07:50)
[2019-11-26] MEDS: ANASTROZOLE 1 MG TAB PO SCH (07:50)
[2019-11-26 07:51] VITALS: BP 146/69; PULSE 73; RESP 16
--- NOTE | 2019-11-26 10:02 | P.PN ---
<Kaley Stevenson A - Last Filed: 11/26/19 10:01> Subjective Progress Note Date: 11/26/19 CHIEF COMPLAINT: Cellulitis of the breast PRESENT ILLNESS: Patient examined this morning at the bedside. Pain is controlle d. Tolerating diet. No nausea or vomiting. Vital signs stable. She is anticipating discharge today. PHYSICAL EXAM: VITAL SIGNS: Reviewed CONSTITUTIONAL: Well developed and in no acute distress. EYES: Conjuctivae without sclera icterus. Extraocular movements grossly intact. HEAD, EARS, NOSE, THROAT: Moist buccal mucosa. Head is atraumatic, normocephalic. Hears conversational speech. No nasal drainage. NECK: Supple. No thyroidomegaly. RESPIRATORY: Non-labored respirations and equal bilateral excursions. BREAST: Improved erythema from original markings. No drainage noted. Temperature normal. Mild tenderness. CARDIOVASCULAR: Palpable 2+ radial pulses. Regular rate. Regular rhythm. ABDOMEN: Soft. Nontender. Nondistended. MUSCULOSKELETAL: No gross deformity of the lower extremities noted. No clubbing. No cyanosis. SKIN: Good skin turgor. Well perfused. NEUROLOGIC: Cranial nerves I through XII grossly intact. No focal or lateralizing signs. PSYCH: Appropriate affect. Alert and oriented to person, place and time. ASSESSMENT: 1. Cellulitis of the breast, left mastectomy site PLAN: 1. Continue IV antibiotics 2. No surgical intervention at this time. 3. Discharge per medicine 4. Patient to follow up with Dr. Ceferino Gordon post discharge Nurse practitioner note has been reviewed by physician. Signing provider agrees with the documented findings, assessment, and plan of care. Objective - Vital Signs Vital signs: Vital Signs Temp 98.4 F 11/26/19 07:00 Pulse 73 11/26/19 07:00 Resp 16 11/26/19 07:00 BP 146/69 11/26/19 07:00 Pulse Ox 94 L 11/26/19 07:00 Intake & Output 11/25/19 11/26/19 11/26/19 18:59 06:59 18:59 Intake Total 800 Balance 800 Intake: Oral 800 Other: # Voids 1 1 - Labs CBC & Chem 7: 11/23/19 06:25 11/23/19 06:25 Labs: Microbiology - Last 24 Hours (Table) 11/21/19 14:00 Blood Culture - Preliminary Blood No Growth after 96 hours <Starla,Jocelin N - Last Filed: 11/26/19 19:42> Subjective Patient clinically doing well. Follow-up with Dr. Campos as outpatient Objective - Vital Signs Vital signs: Vital Signs Temp 98.4 F 11/26/19 07:00 Pulse 73 11/26/19 07:00 Resp 16 11/26/19 07:00 BP 146/69 11/26/19 07:00 Pulse Ox 94 L 11/26/19 07:00 Intake & Output 11/26/19 11/26/19 11/27/19 06:59 18:59 06:59 Other: Voiding Method Toilet # Voids 1 - Labs CBC & Chem 7: 11/23/19 06:25 11/23/19 06:25 Labs: Microbiology - Last 24 Hours (Table) 11/21/19 14:00 Blood Culture - Preliminary Blood No Growth after 120 hours Assessment and Plan (1) Cellulitis of left breast Status: Acute Priority: High Code(s): N61.0 - MASTITIS WITHOUT ABSCESS SNOMED Code(s): 96317148 (2) Abscess or cellulitis of chest wall Status: Acute Code(s): VIE0925 - SNOMED Code(s): 229523402
--- NOTE | 2019-11-26 11:31 | PN ---
PROGRESS NOTE DATE OF SERVICE: 11/26/2019 REASON FOR FOLLOWUP: Left chest wall mastectomy site cellulitis and possible abscess. INTERVAL HISTORY: The patient is currently afebrile. She has been breathing comfortably. The patient is currently waiting for discharge. Denies any chest pain, cough. No nausea, no vomiting. No abdominal pain. No diarrhea. PHYSICAL EXAMINATION: Blood pressure 146/69 with the pulse of 73, temperature 98.4. She is 94% on room air. General description is an elderly female, lying in bed in no distress. RESPIRATORY SYSTEM: Unlabored breathing, clear to auscultation anteriorly. HEART: S1, S2. Regular rate and rhythm. ABDOMEN: Soft, no tenderness. LABS: No new labs have been obtained today. DIAGNOSTIC IMPRESSION AND PLAN: Patient with left chest wall abscess and cellulitis previously ultrasound-guided drainage. Those cultures were negative for resistant pathogen. She did have recurrence of her symptoms after she finished the oral Keflex hence advising cefazolin 2 grams q.8 hours for 2 weeks. She did have elevated CRP of 18.4 and that may be monitored in outpatient setting and outpatient followup in office in about 2 weeks before antibiotic has completed. Continue supportive care. MMODL / IJN: [id number] /
--- NOTE | 2019-11-26 11:44 | P.DS ---
Providers Date of admission: 11/23/19 07:50 Expected date of discharge: 11/26/19 Attending physician: David Montoya Consults: 11/21/19 14:39 Consult Physician Urgent Consulting Provider: Madeline Campos Consult Reason/Comments: left chest wall cellulitis Do you want consulting provider notified?: Yes 11/21/19 14:43 Consult Physician Urgent Consulting Provider: Clover Hsu Consult Reason/Comments: left chest wall cellulitis Do you want consulting provider notified?: Yes 11/22/19 11:00 Consult Physician Routine Consulting Provider: Jocelin Cha Consult Reason/Comments: covering for Beth Do you want consulting provider notified?: Already Contacted Primary care physician: Jose Miguel Mathews [facility] Course: Chief Complaint: Left breast surgical site pain History of presenting complaint: This is a very pleasant [address] Jose Miguel Mathews. About 2 years ago patient underwent left mastectomy. Patient was here on November 03, with infection of the mastectomy site. Cultures from infected site were negative. Patient was then seen by Dr. Shah from [place]. Patient was sent home on Keflex for 10 days. Patient went home on November 08. Patient now presents with 2 days of increased redness tenderness chills at the site on the left mastectomy bedside. Her nausea. Started on Unasyn and vancomycin the ER. Chronic stable medical conditions include osteoarthritis, restless leg syndrome, asthma, depression. Admitted with recurrent cellulitis and inflammation at the left mastectomy site. Treated with IV Ancef. Responded well. Redness swelling pain much improved. Patient advised to wear a sports bra. And sleep or on the right side. Today-. Doing better. Care discussed with the patient. Consultation: Dr. Madyson Gordon from surgery Dr. hsu from [place] Physical examination: VITAL SIGNS: 98.4, 73, 16, blood pressure 146% and, 94% on room air GENERAL: Laying in bed, more comfortable EYES: Pupils equal. Conjunctiva normal. HEENT: External appearance of nose and ears normal, oral cavity grossly normal. NECK: JVD not raised; masses not palpable. HEART: First and second heart sounds are normal; no edema. LUNGS: Respiratory rate normal; clear to auscultation CHEST wall: Redness along the incision site in the left breast area going down to the axilla with areas of tenderness. Area has been marked with a skin pencil...-Continues to improve ABDOMEN: Soft, nontender, liver spleen not palpable, no masses palpable. PSYCH: Alert and oriented x3; mood and affect normal. INVESTIGATIONS, reviewed in the clinical context: Pro calcitonin 0.05 Previous testing White count 7.3 hemoglobin 14 potassium 4.2 creatinine 0.60 Assessment: -Acute cellulitis and a prior mastectomy site with a recent infection of the same side. Cultures of the last admission were negative.-Much improved -Depression otherwise specified -Intermittent asthma -Restless leg syndrome -Primary osteoarthritis -Obesity BMI 32.6 Disposition: [facility] Patient Condition at Discharge: Stable Plan - Discharge Summary Discharge Rx Participant: No New Discharge Prescriptions: New Naproxen [Naprosyn] 250 mg PO TID #30 tab Famotidine [Pepcid] 20 mg PO BID #30 tablet Continue Cholecalciferol [Vitamin D3 (25 Mcg = 1000 Iu)] 2,000 unit PO DAILY Anastrozole [Arimidex] 1 mg PO DAILY rOPINIRole HCL [Requip] 0.5 mg PO HS #30 tablet Albuterol Sulfate [Albuterol Sulfate Hfa] 2 puff INHALATION RT-BID PRN PRN Reason: Shortness Of Breath Montelukast [Singulair] 10 mg PO DAILY traMADol HCl [Ultram] 50 mg PO DAILY PRN PRN Reason: Pain Sertraline [Zoloft] 50 mg PO DAILY Sertraline [Zoloft] 25 mg PO HS #30 tab Nystatin 100,000 Unit/ml Susp [Mycostatin Oral Susp] 4 ml PO QID HYDROcodone/APAP 5-325MG [Newell 5-325] 1 tab PO Q6HR PRN PRN Reason: MODERATE Pain Discontinued Cephalexin [Keflex] 500 mg PO Q6HR #40 cap Discharge Medication List Anastrozole [Arimidex] 1 mg PO DAILY 06/04/18 [History] Cholecalciferol [Vitamin D3 (25 Mcg = 1000 Iu)] 2,000 unit PO DAILY 06/04/18 [History] rOPINIRole HCL [Requip] 0.5 mg PO HS #30 tablet 06/13/18 [Rx] Albuterol Sulfate [Albuterol Sulfate Hfa] 2 puff INHALATION RT-BID PRN 11/03/19 [History] Montelukast [Singulair] 10 mg PO DAILY 11/03/19 [History] Sertraline [Zoloft] 50 mg PO DAILY 11/03/19 [History] traMADol HCl [Ultram] 50 mg PO DAILY PRN 11/03/19 [History] Sertraline [Zoloft] 25 mg PO HS #30 tab 11/08/19 [Rx] HYDROcodone/APAP 5-325MG [Newell 5-325] 1 tab PO Q6HR PRN 11/21/19 [History] Nystatin 100,000 Unit/ml Susp [Mycostatin Oral Susp] 4 ml PO QID 11/21/19 [History] Famotidine [Pepcid] 20 mg PO BID #30 tablet 11/24/19 [Rx] Naproxen [Naprosyn] 250 mg PO TID #30 tab 11/24/19 [Rx] Follow up Appointment(s)/Referral(s): Madeline Campos MD [STAFF PHYSICIAN] - 12/08/19 4:20 pm Ruben Mueller NPC [REFERRING] - 11/26/19 1:30 pm Clover Hsu MD [STAFF PHYSICIAN] - 12/01/19 2:45 pm Activity/Diet/Wound Care/Special Instructions: Ancef 2 g IV piggyback every 8 hours for-14 days powerglide pro midline catheter right upper arm, catheter length 10 cm. date inserted 11-24-2019. Care Plan Goals (MU): [facility] [phone] any questions please call agency
== END 2019-11-26 14:44 | DRG 863 ==
LOC: EC 12:32 → 4SSUR 14:38 → OBSVTOIN 11-23 07:50
PROVIDERS: ADMIT Hospitalist; ATTEND Hospitalist
PROC: 05HB33Z Insertion of Infusion Device into Right Basilic Vein, Percutaneous Approach (ICD-10-PCS; principal; 2019-11-24 15:45)
DX: T81.40XA Infection following a procedure, unspecified, initial encounter (principal); L03.313 Cellulitis of chest wall; E66.9 Obesity, unspecified; F32.9 Major depressive disorder, single episode, unspecified; G25.81 Restless legs syndrome; J45.20 Mild intermittent asthma, uncomplicated; M19.91 Primary osteoarthritis, unspecified site; N61.0 Mastitis without abscess; Z68.32 Body mass index [BMI] 32.0-32.9, adult; Z79.811 Long term (current) use of aromatase inhibitors; Z79.899 Other long term (current) drug therapy; Z80.3 Family history of malignant neoplasm of breast; Z80.41 Family history of malignant neoplasm of ovary; Z82.49 Family history of ischemic heart disease and other diseases of the circulatory system; Z85.3 Personal history of malignant neoplasm of breast; Z90.13 Acquired absence of bilateral breasts and nipples; Z98.51 Tubal ligation status; Z92.3 Personal history of irradiation
CPT/HCPCS: 36410; 36415; 76937; 80048; 80053; 80202; 83605; 84145; 85025; 85652; 86140; 87040; 94640; 99284

== ENCOUNTER → 2019-11-21 | Outpatient (CLI) | payer MEDICARE ==
[2019-11-21 11:49] VITALS: BP 124/62; PULSE 71; RESP 18; TEMP 98.1
--- NOTE | 2019-11-21 12:17 | P.PN ---
Subjective Progress Note Date: 11/21/19 Principal diagnosis: Erythema left chest wall at mastectomy site Cora is a 64-year-old white female seen in consultation for DR. Strauss while in the hospital on 11-03-19 who was status post bilateral mastectomies done about 18 months ago. She underwent an initial left breast lumpectomy in 2016 and had radiation therapy following this for an invasive ductal breast cancer. She had persistent pain and opted for a mastectomy in May 2018. The patient at that time had bilateral mastectomies secondary to the asymmetry which unilateral mastectomy would cause. She did not receive chemotherapy but has had hormonal therapy. The patient had done well until recently approximately 4 days prior to admission when she states she awoke with left-sided chest wall tenderness. She states that the area was very tender to palpation. She did not report any fevers. She presented to the hospital and was started on IV antibiotics. She had an ultrasound performed which did reveal fluid consistent with seroma versus abscess under the mastectomy flap on the left side. She had drainage via ultrasound guidance on . This revealed 20 mL of fluid and pathology revealed dense acute inflammation consistent with abscess. Patient states at this time it is feeling better. She has no fever or chills. The drainage tube was removed last week. The patient has noted that over the last 48 hours the medial aspect of the left chest wall incision has become more red. It appears to be tender to palpation. She is continuing to take an oral antibiotic, keflex 500 q6, however today is the last day. Surgical history: 1. Bilateral mastectomies 2. Tubal ligation Medical history: 1. Depression - Constitutional Constitutional: Denies chills, Denies fever - EENT Eyes: denies blurred vision, denies pain Ears: deny: decreased hearing Ears, nose, mouth and throat: Denies headache, Denies sore throat - Breasts Breasts: bilateral: as per HPI - Cardiovascular Cardiovascular: Denies chest pain, Denies shortness of breath - Respiratory Comment: asthma - Gastrointestinal Gastrointestinal: Denies abdominal pain, Denies diarrhea, Denies nausea, Denies vomiting - Genitourinary (Female) Comment: Recent urinary tract infection - Menstruation Menstruation: Reports postmenopausal - Integumentary Comment: Left chest wall tender to palpation/seroma versus abscess/erythema No evidence of recurrent cancer - Psychiatric Psychiatric: Reports depression - Endocrine Endocrine: Reports as per HPI - Hematologic/Lymphatic Hematologic/Lymphatic: Reports as per HPI Objective - Vital Signs Vital signs: Vital Signs Temp 98.1 F 11/21/19 11:46 Pulse 71 11/21/19 11:46 Resp 18 11/21/19 11:46 BP 124/62 11/21/19 11:46 Pulse Ox 94 L 11/21/19 11:46 Intake & Output 11/20/19 11/21/19 11/21/19 18:59 06:59 18:59 Weight 87.543 kg - Constitutional General appearance: Present: average body habitus - EENT Eyes: Present: EOMI ENT: Present: hearing grossly normal - Neck Neck: Present: normal ROM - Respiratory Respiratory: bilateral: CTA - Cardiovascular Rhythm: regular Heart sounds: normal: S1, S2 - Integumentary Integumentary Comment(s): Medial aspect of the left mastectomy incision reveals some erythema, it is approximately 12 x 7 cm area of increased erythema no erythema of concern of the right chest wall - Musculoskeletal Musculoskeletal: Present: gait normal - Psychiatric Psychiatric: Present: A&O x's 3, appropriate affect Assessment and Plan Assessment: Impression: 1. Bilateral mastectomies 2. Recent left chest wall abscess, treated with antibiotics and radiology tube drainage, recent increased in erythema 3. Patient presently on oral antibiotics 4. Depression Plan: 1. I have called Dr. Mcintyre's office we are setting up an appointment for her to see him 2. If the erythema gets worse prior to seeing Dr. vasquez she will report to the emergency room 3. We'll follow up here in 2 weeks time 4. CAT scan of the chest to follow for punctate nodule right upper lobe and CAT scan of the liver to follow 0.7 cm lesion posterior lateral right mid liver May 4th follow up here after this CC: Ruben Mathews encounter 25 minutes, > 50% of time in planning and counselling Time with Patient: Less than 30
== END ==
LOC: WWCWWP 11:09
PROVIDERS: ATTEND Surgery
DX: Z53.9 Procedure and treatment not carried out, unspecified reason (principal)

== ENCOUNTER → 2020-01-19 | Outpatient (CLI) | payer MEDICARE ==
[2020-01-19 13:38] LABS: African American GFR (CKD) >90 (>60 ml/min/1.73 sqM); Blood Urea Nitrogen 18 mg/dL (7-17); Non-African American GFR(CKD) >90 (>60 ml/min/1.73 sqM)
--- NOTE | 2020-01-20 09:48 | CT ---
EXAMINATION TYPE: CT chest abdomen w con DATE OF EXAM: 01/19/2020 COMPARISON: Chest CT dated 07/18/2019 and abdominal ultrasound dated 09/23/2019 HISTORY: Follow up lung and liver nodules CT DLP: 1272.1 mGycm. Automated Exposure Control for Dose Reduction was Utilized. CONTRAST: CT scan of the thorax and abdomen is performed with IV Contrast, patient injected with 100 mL of Isov ue 300. FINDINGS: LUNGS: There is no change in size of the solid 2 mm nodule of the right upper lobe at the periphery o f a branch vessel on series 5 image 22. The lungs are grossly clear, there is no concerning parenchym al mass or nodule identified. There is no pleural effusion or pneumothorax seen. The tracheobronch ial tree is patent. There is linear pleural parenchymal scarring of the right lower lobe. Subsegmenta l atelectasis in the lingula at the lung bases. Calcified granuloma at the medial lung base on series 4 image 58. MEDIASTINUM: There are no greater than 1 cm hilar or mediastinal lymph nodes. No pericardial effusi on is seen. Moderate coronary artery calcifications are seen. OTHER: Bilateral mastectomy has been performed. Left axillary dissection has been performed with surg ical clips in the left axilla and likely post radiation change or postsurgical change with skin thick ening in the left axilla that is mild and stable. LIVER/GB: Hepatic parenchyma is diffusely hypoattenuated in comparison to that of the spleen, most co mmonly seen in hepatic steatosis. This finding limits evaluation for hepatic masses. The previously s een arterial enhancing hepatic lesion on the CT of 07/18/2019 within the right hepatic lobe is redemon strated in segment 6 and is stable in size measuring approximately 7 mm marked on images 61 and 62. N o intrahepatic biliary ductal dilatation. No cholelithiasis on CT. PANCREAS: No significant abnormality is seen. SPLEEN: No splenomegaly. Small splenule at the cranial and anterolateral margin of the spleen on imag e 50. ADRENALS: No new nodules or thickening. KIDNEYS: Kidneys enhance and excrete symmetrically without hydronephrosis. BOWEL: No dilated large or small bowel. Incidentally noted duodenal diverticulum no pancreatic head. LYMPH NODES: No greater than 1cm abdominal nodes are appreciated. OSSEOUS STRUCTURES: No new destructive osseous lesion. OTHER: Moderate atherosclerosis of the abdominal aorta and its branches. There is diastases recti. IMPRESSION: 1. Stable 2 mm right upper lobe pulmonary nodule. No new pulmonary nodules nor mediastinal adenopathy . 2. Unchanged 7 mm hepatic arterial enhancing lesion. Although this could represent a flash filling he mangioma or arterial portal shunt continued surveillance is recommended to ensure no interval growth as this could also represent metastasis. No new hepatic lesions. Background mild hepatic steatosis.
== END | disposition home or self-care (01) ==
LOC: RADCTMAIN 12:43
PROVIDERS: ATTEND Surgery
DX: R91.1 Solitary pulmonary nodule (principal); K76.0 Fatty (change of) liver, not elsewhere classified; R91.8 Other nonspecific abnormal finding of lung field; R19.00 Intra-abdominal and pelvic swelling, mass and lump, unspecified site
CPT/HCPCS: 82565; 84520; 71260; 74160; 36415; Q9967

== ENCOUNTER → 2020-02-06 | Outpatient (CLI) | payer MEDICARE ==
[2020-02-06 10:00] VITALS: BP 137/81; PULSE 89; RESP 16; TEMP 98.5
--- NOTE | 2020-02-06 10:32 | P.PN ---
Subjective Progress Note Date: 02/06/20 Principal diagnosis: Surveillance stage IA left breast cancer/cellulitis of the chest wall Cora is a 64-year-old white female seen in consultation for DR. Strauss while in the hospital on 11-03-19 who was status post bilateral mastectomies May 2018. She underwent an initial left breast lumpectomy in 2016 and had radiation therapy following this for an invasive ductal breast cancer. She did not have any chemotherapy, she is on anastrozole. She had persistent pain and opted for a mastectomy in May 2018. The patient at that time had bilateral mastectomies secondary to the asymmetry which unilateral mastectomy would cause. She did not receive chemotherapy but has had hormonal therapy. The patient had done well until early 2019 when she states she awoke with left- sided chest wall tenderness. She states that the area was very tender to palpation. She did not report any fevers. She presented to the hospital and was started on IV antibiotics. She had an ultrasound performed which did reveal fluid consistent with seroma versus abscess under the mastectomy flap on the left side. She had drainage via ultrasound guidance on . This revealed 20 mL of fluid and pathology revealed dense acute inflammation consistent with abscess. The cultures were negative. She was treated with IV antibiotics and sent home on oral keflex. She represnted to the ER with erythema of the chest wall and was admitted for AB therapy in November of 2019. She than went to rehab for two weeks to continue antibiotic therapy. It was vancomycin. At this time she has no complaints of infection. NO fever or chills. She continues to have some discomforit on the left side, however it is improved. The patient had had a CAT scan of the chest and abdomen in the past at that time there was a 2 mm right upper lobe pulmonary nodule noted no new pulmonary nodules and mediastinal adenopathy are noted now additionally she has a 7 mm hepatic arterial enhancing lesion felt to most likely represent a hemangioma however interval follow-up was recommended Family History: 2 paternal aunts: breast cancer, ( one aunt of breast cancer) Hormonal History: menarche: 9 , first born at 15, did not breast feed menopause: 55 BCP: 12 years hormones: none Surgical history: 1. Bilateral mastectomies 2. Tubal ligation 3. left lumpectomy/SNB prior to mastectomy Medical history: 1. Depression 2. asthma 3. history of left breast cancer Social History: smoke: none alcohol: none frugs: none - Constitutional Constitutional: Denies chills, Denies fever - EENT Eyes: denies blurred vision, denies pain Ears: deny: decreased hearing left ear Ears, nose, mouth and throat: Denies headache, Denies sore throat - Breasts Breasts: bilateral: as per HPI - Cardiovascular Cardiovascular: Denies chest pain, Denies shortness of breath - Respiratory Comment: asthma - Gastrointestinal Gastrointestinal: Denies abdominal pain, Denies diarrhea, Denies nausea, Denies vomiting - Genitourinary (Female) Comment: urinary tract infection in past - Menstruation Menstruation: Reports postmenopausal - Integumentary Comment: Left chest wall history of cellulitis resolved No evidence of recurrent cancer - Psychiatric Psychiatric: Reports depression - Endocrine Endocrine: none - Hematologic/Lymphatic Hematologic/Lymphatic: none Objective - Exam BMI 31.3 - Constitutional General appearance: Present: average body habitus, cooperative - EENT Eyes: Present: EOMI ENT: Present: hearing grossly normal - Neck Neck: Present: normal ROM - Respiratory Respiratory: bilateral: CTA - Cardiovascular Rhythm: regular Heart sounds: normal: S1, S2 - Gastrointestinal General gastrointestinal: Present: normal bowel sounds, soft - Integumentary Integumentary: Present: normal turgor - Musculoskeletal Musculoskeletal: Present: gait normal - Psychiatric Psychiatric: Present: A&O x's 3, appropriate affect, intact judgment & insight - Allied health notes Allied Health Notes Comment(s): chest wall: Right chest wall: No evidence of cancer incision clean and dry well-healed no evidence of infection Right axilla: No adenopathy of concern Left chest wall: Incision is clean and dry no evidence of infection there are postradiation changes with some firmness noted but no evidence of recurrent cancer Left axilla: No adenopathy of concern Assessment and Plan Assessment: Impression: 1. Patient status post bilateral mastectomies 2. Stage I a left breast cancer status post lumpectomy and radiation therapy after which she had chronic breast pain 3. Patient presently on anastrozole 4. Computed tomography scan revealing 2 mm nodule in the right lung and a lesion in the liver most likely hemangioma Plan: 1. Repeat computed tomography scan chest and abdomen w contrast and 12 months follow lung and the liver lesion, this was reviewed with radiology Dr. Esquivel 2. Continue anastrozole follow with Dr.Diana 3. Follow-up. In 6 months Cc: encounter 30 minutes, greater than 50'% of time in planning and counseling Time with Patient: Greater than 30
== END | disposition home or self-care (01) ==
LOC: WWCWWP 09:39
PROVIDERS: ATTEND Surgery
DX: Z53.9 Procedure and treatment not carried out, unspecified reason (principal)

== ENCOUNTER → 2020-02-27 | Outpatient (CLI) | payer MEDICARE ==
--- NOTE | 2020-02-27 11:15 | US ---
EXAMINATION TYPE: US liver DATE OF EXAM: 02/27/2020 COMPARISON: CT 01/19/2020 and 09/23/2019 ultrasound CLINICAL HISTORY: 64-year-old female R19.00 Intra-abdominal and pelvic swelling. Follow-up lesion see n on CT. TECHNIQUE: Multiple sonographic images of the right upper quadrant are obtained. FINDINGS: EXAM MEASUREMENTS: Liver Length: 13.2 cm Gallbladder Wall: 0.3 cm CBD: 0.5 cm Right Kidney: 10.2 x 4.1 x 4.1 cm Pancreas: not visualized due to midline bowel gas Liver: Mildly echogenic, unable to discern the right lobe lesion seen on CT. Gallbladder: No stones seen Evidence for sonographic Churchill's sign: no CBD: wnl Right Kidney: No hydronephrosis. IMPRESSION: 1. Hepatic steatosis. The liver is attenuating and we are unable to identify the lesion within the ri ght liver lobe seen on CT. CT surveillance could be performed in 6 months. 2. No cholelithiasis or biliary ductal dilatation.
== END | disposition home or self-care (01) ==
LOC: RADUSWWP 10:18
PROVIDERS: ATTEND Surgery
DX: K76.0 Fatty (change of) liver, not elsewhere classified (principal)
CPT/HCPCS: 76705

== ENCOUNTER → 2020-08-06 | Outpatient (CLI) | payer MEDICARE ==
[2020-08-06 09:49] VITALS: BP 121/72; PULSE 81; RESP 18; TEMP 98.4
--- NOTE | 2020-08-06 10:12 | P.PN ---
Subjective Progress Note Date: 08/06/20 Principal diagnosis: stage IA left breast cancer Cora is a 65-year-old white female seen in consultation for DR. Strauss while in the hospital on 11-03-19 who was status post bilateral mastectomies May 2018. She underwent an initial left breast lumpectomy in 2016 and had radiation therapy following this for an invasive ductal breast cancer. She did not have any chemotherapy, she is on anastrozole. She had persistent pain and opted for a mastectomy in May 2018. The patient at that time had bilateral mastectomies secondary to the asymmetry which unilateral mastectomy would cause. She did not receive chemotherapy but has had hormonal therapy. The patient had done well until early 2019 when she states she awoke with left- sided chest wall tenderness. She states that the area was very tender to palpation. She did not report any fevers. She presented to the hospital and was started on IV antibiotics. She had an ultrasound performed which did reveal fluid consistent with seroma versus abscess under the mastectomy flap on the left side. She had drainage via ultrasound guidance on . This revealed 20 mL of fluid and pathology revealed dense acute inflammation consistent with abscess. The cultures were negative. She was treated with IV antibiotics and sent home on oral keflex. She represnted to the ER with erythema of the chest wall and was admitted for AB therapy in November of 2019. She than went to rehab for two weeks to continue antibiotic therapy. It was vancomycin. On the visit of 02-06-20 she had no complaints of infection. NO fever or chills. She continues to have some discomforit on the left side, however it is improved. The patient had had a CAT scan of the chest and abdomen on 01-19-20, at that time there was a 2 mm right upper lobe pulmonary nodule noted no new pulmonary nodules and no mediastinal adenopathy of concern was noted, she did have a a 7 mm hepatic arterial enhancing lesion felt to most likely represent a hemangioma however interval follow-up was recommended. The patient had an ultrasound done on 02-27-20 of the liver which did not show the lesion in the liver. CT surveillance could be performed in 6 months as per the radiologist. Family History: 2 paternal aunts: breast cancer, ( one aunt of breast cancer) Hormonal History: menarche: 9 , first born at 15, did not breast feed menopause: 55 BCP: 12 years hormones: none Surgical history: 1. Bilateral mastectomies 2. Tubal ligation 3. left lumpectomy/SNB prior to mastectomy Medical history: 1. Depression 2. asthma 3. history of left breast cancer Social History: smoke: none alcohol: none frugs: none - Constitutional Constitutional: Denies chills, Denies fever - EENT Eyes: denies blurred vision, denies pain Ears: deny: decreased hearing left ear Ears, nose, mouth and throat: Denies headache, Denies sore throat - Breasts Breasts: bilateral: as per HPI - Cardiovascular Cardiovascular: Denies chest pain, Denies shortness of breath - Respiratory Comment: asthma - Gastrointestinal Gastrointestinal: Denies abdominal pain, Denies diarrhea, Denies nausea, Denies vomiting - Genitourinary (Female) Comment: urinary tract infection in past - Menstruation Menstruation: Reports postmenopausal - Integumentary Comment: Left chest wall history of cellulitis resolved No evidence of recurrent cancer - Psychiatric Psychiatric: Reports depression - Endocrine Endocrine: none - Hematologic/Lymphatic Hematologic/Lymphatic: none Objective - Vital Signs Vital signs: Vital Signs Temp 98.4 F 08/06/20 09:46 Pulse 81 08/06/20 09:46 Resp 18 08/06/20 09:46 BP 121/72 08/06/20 09:46 Pulse Ox 94 L 08/06/20 09:46 Intake & Output 08/05/20 08/06/20 08/06/20 18:59 06:59 18:59 Weight 87.543 kg - Exam BMI 32.1 - Constitutional General appearance: Present: obese - EENT Eyes: Present: EOMI ENT: Present: hearing grossly normal - Neck Neck: Present: normal ROM - Respiratory Respiratory: bilateral: CTA - Cardiovascular Rhythm: regular Heart sounds: normal: S1, S2 - Gastrointestinal Gastrointestinal Comment(s): no guarding or rebound General gastrointestinal: Present: soft - Integumentary Integumentary Comment(s): Incision bilateral chest wall clean and dry no evidence of any recurrent cancer, radiation changes are noted in the incision in the left chest wall Decreased mobility of the left arm Left arm is slightly larger than the right arm/lymphedema right wrist:16.5 cm Left wrist to 17 cm Right upper arm mid level: 30 cm Left arm mid-level: 32.5 cm - Musculoskeletal Musculoskeletal: Present: gait normal - Psychiatric Psychiatric: Present: A&O x's 3, appropriate affect Assessment and Plan Assessment: Impression: 1. Stage I a left breast cancer no evidence of recurrence 2.patient on anastrazole 3. Computed tomography scan of 520 questionable lesion in the liver/recommend repeat computed tomography scan chest abdomen and pelvis 4. Mild left upper extremity lymphedema/patient has seen lymphedema specialist and has a fluid is not interested in being seen again 5. No evidence of any cellulitis or infection at this time Plan: 1. Continue anastrozole 2. Computed tomography scan chest abdomen and pelvis particular attention to the 7 mm lesion in the liver 3. Continue to wear the sleeve regarding the lymphedema in the left arm 4. Follow-up. After computed tomography scan CC: Dr. Mueller encounter 25 minutes, > 50% of time in planning and counselling
== END | disposition home or self-care (01) ==
LOC: WWCWWP 09:39
PROVIDERS: ATTEND Surgery
DX: Z53.9 Procedure and treatment not carried out, unspecified reason (principal)

== ENCOUNTER → 2020-08-19 | Outpatient (CLI) | payer MEDICARE ==
[2020-08-19 15:36] LABS: African American GFR (CKD) >90 (>60 ml/min/1.73 sqM); Blood Urea Nitrogen 22 mg/dL (7-17); Non-African American GFR(CKD) 83 (>60 ml/min/1.73 sqM)
--- NOTE | 2020-08-20 08:57 | CT ---
EXAMINATION TYPE: CT ChestAbdPelvis w con DATE OF EXAM: 08/19/2020 INDICATION: PREVIOUS ABNORMAL EXAM, LIVER MASS COMPARISON: 01/19/2020 CT DLP: 1957.3 mGycm CONTRAST: Performed with Oral Contrast and with IV Contrast, patient injected with 100 mL of Isovue 300. TECHNIQUE: Axial images at 5 mm thick sections. Reconstructed images in the coronal plane. Delayed images through the kidneys. FINDINGS: CT CHEST: Bilateral breast prostheses are present. Portion of the thyroid visualized is normal. Punctate nodularity in the periphery of the right posterior lateral upper lobe is stable in appearanc e and size from comparison.1 No additional suspicious lung nodules or focal infiltrates are present. No enlarged mediastinal or hilar adenopathy is evident. The ascending aorta diameter at the level of the main pulmonary artery is 3.2 cm. The main pulmonary artery diameter at the bifurcation is 2.[address] ABDOMEN: Liver: There is moderate fatty infiltration to the liver. An area of relative enhancement posterior l ateral right mid lobe liver 0.6 cm and is stable from comparison. Spleen: Normal Pancreas: Normal Adrenal glands: The adrenal glands are normal. Gallbladder: Normal Kidneys: No masses are evident. No hydronephrosis is present. No cysts are present. Delayed images were obtained through the kidneys, which remain unremarkable. Aorta: Vascular calcification is within the aorta. Inferior vena cava: Normal. CT PELVIS: Loops of bowel within the abdomen and pelvis are normal. There are loops of bowel which are incom pletely distended or lack oral contrast limiting their evaluation. Appendix: Not identified. No suspicious inflammatory changes or dilated tubular structures are eviden t. Urinary bladder: Normal. Genitourinary structures: Uterus is normal. Adnexal regions are clear Osseous structures: No suspicious lytic or sclerotic lesions. IMPRESSIONS: 1. Stable 2 mm right apical density. 2. Stable area of enhancement posterior lateral right lower.
== END | disposition home or self-care (01) ==
LOC: RADCTMAIN 15:02
PROVIDERS: ATTEND Surgery
DX: J98.4 Other disorders of lung (principal); R91.8 Other nonspecific abnormal finding of lung field
CPT/HCPCS: 82565; 84520; 71260; 74177; 36415; Q9967

== ENCOUNTER → 2021-11-04 | Outpatient (CLI) | payer MEDICARE ==
--- NOTE | 2021-11-10 15:13 | PE ---
Nuclear medicine PET/CT HISTORY: Left Breast carcinoma, subsequent Patient received 11.7 mCi F-18 FDG intravenously in delayed scanning was performed from the skull bas e to the mid thighs. Localization and attenuation correction CT scan was performed. Correlation to CT chest abdomen pelvis 08/19/2020 Chest and neck: There is no suspicious uptake. No evident lung mass. There is no pleural or pericardi al effusion. There is no mediastinal, axillary, hilar adenopathy, no supraclavicular or cervical [place] opathy. Uptake along the oropharynx is thought likely to be physiologic. Coronary artery calcificatio n is present. Patient is post left mastectomy. Surgical clips are present in the left axilla. ABDOMEN: No suspicious uptake. There is no evident liver mass, no retroperitoneal adenopathy or ascit es. Uterus and adnexal structures are within normal limits. No pelvic adenopathy. Duodenal diverticul um is noted. Osseous structures show no suspicious uptake. IMPRESSION: No suspicious uptake is evident. Postop changes. Coronary artery disease.
== END | disposition home or self-care (01) ==
LOC: RADPETMAIN 14:55
PROVIDERS: ATTEND Internal Medicine Hematology & Oncology
DX: C50.912 Malignant neoplasm of unspecified site of left female breast (principal); I25.10 Atherosclerotic heart disease of native coronary artery without angina pectoris
CPT/HCPCS: 78815; A9552